=== PATIENT | male | born 1965 | race Two or more races ===

== ENCOUNTER → 2023-04-06 | Outpatient (CLI) | payer MEDICAID ==
[~2023-04-06] MED LIST: ASPI1TAB20 PO; ATOR40TA52 PO; BUME2TAB5 PO; CARV25TA55 PO; DULO20CA36 PO; EMPA1TAB PO; ISOS20TA5 PO; MEGE20TA3 PO; OXY5T GT; SACU1TAB PO
[2023-04-06 10:00] VITALS: BP 127/83; PULSE 87; RESP 16; O2SAT 92
[2023-04-06 10:28] VITALS: BP 131/83; PULSE 85; RESP 16; O2SAT 92
== END | disposition home or self-care (01) ==
LOC: CHF HDHVI 09:53
PROVIDERS: ATTEND Internal Medicine Cardiovascular Disease
DX: Z01.818 Encounter for other preprocedural examination (principal); I11.0 Hypertensive heart disease with heart failure; I50.43 Acute on chronic combined systolic (congestive) and diastolic (congestive) heart failure; I42.1 Obstructive hypertrophic cardiomyopathy; R94.31 Abnormal electrocardiogram [ECG] [EKG]
CPT/HCPCS: 93005; G0463

== ENCOUNTER 2023-04-07 11:25 | Day surgery (SDC) | payer MEDICAID ==
[2023-04-06 11:29] LABS: Basophils # (auto) 0.1 10 ^3/uL (0-0.2); Basophils % (auto) 1.4 % (0.0-2.0); Eosinophils # (auto) 0.4 10 ^3/uL (0-0.8); Eosinophils % (auto) 7.3 % (0.0-7.0); Hematocrit 27.2 % (41.0-53.0); Hemoglobin 8.7 g/dL (13.5-17.5); Lymphocytes # (auto) 0.7 10 ^3/uL (0.4-5.4); Lymphocytes % (auto) 12.4 % (10.0-50.0); Mean Corpuscular Hemoglobin 31.7 pg (28.0-32.0); Mean Corpuscular Hgb Conc. 31.9 g/dL (32.0-36.0); Mean Corpuscular Volume 99.4 fL (80.0-100.0); Monocytes # (auto) 0.5 10 ^3/uL (0-1.3); Monocytes % (auto) 9.3 % (0.0-12.0); Neutrophils # (auto) 3.8 10 ^3/uL (1.6-8.6); Neutrophils % (auto) 69.6 % (37.0-80.0); Red Blood Cells 2.73 10^6/uL (4.5-5.90); Red Cell Distribution Width 14.6 % (11.8-14.3); White Blood Cell 5.5 10^3/uL (4.4-10.8)
[2023-04-06 11:44] LABS: INR 1.09 (0.9-1.15); Partial Thromboplastin Time 32.1 SEC (24.5-34.5); Prothrombin Time 11.4 sec (9.3-11.8)
[2023-04-06 12:13] LABS: Chloride 103 mmol/L (98-107); Potassium 4.7 mmol/L (3.5-5.1); Sodium 134 mmol/L (136-145)
[2023-04-06 12:14] LABS: Anion Gap 6 (5-15); Calcium 8.5 mg/dL (8.7-10.4); Carbon Dioxide 25 mmol/L (20-30)
[2023-04-06 12:19] LABS: Glucose 203 mg/dL (74-106)
[2023-04-06 12:20] LABS: BUN/Creatinine Ratio 21.3 (10.0-20.0); Blood Urea Nitrogen 64 mg/dL (9-23)
[~2023-04-07] VITALS: Ht 188 cm; Wt 54.0 kg
[2023-04-07] VITALS (10 sets, daily range): BP systolic 141–187; BP diastolic 95–114; PULSE 82–85; RESP 10–14; TEMP 98.4; O2SAT 97–100
[~2023-04-07 11:25] MED LIST changes: -EMPA1TAB PO
[2023-04-07] MEDS ORDERED: fentaNYL CITRATE 100 MCG/2 ML VL ONE (12:23)
[2023-04-07] MEDS ORDERED: ANGIOMAX 250 MG VIAL IV ONE (12:23)
[2023-04-07] MEDS ORDERED: IOHEXOL 350 MG/ML 100ML IJ ONE ×2 (12:24→12:33)
[2023-04-07] MEDS ORDERED: SODIUM CHL 0.9% 0 ML ONE (12:24)
[2023-04-07] MEDS ORDERED: LIDOCAINE 2%HCL (LOCAL ANESTH.) INJ 20ML MDV ONE (12:24)
[2023-04-07] MEDS ORDERED: MIDAZOLAM HCL 2MG/2ML 2ml VIAL (1mg/ml) ONE (12:24)
[2023-04-07] MEDS ORDERED: ISOSORBIDE DINITRATE 10 MG TAB PO ONE (15:30)
[2023-04-07] MEDS ORDERED: ISOSORBIDE MONONITRATE ER 60 MG TAB PO ONE ×2 (15:30→15:33)
== END 2023-04-07 16:50 | disposition home or self-care (01) ==
LOC: CATH 11:25
PROVIDERS: ATTEND Internal Medicine Cardiovascular Disease
DX: I13.11 Hypertensive heart and chronic kidney disease without heart failure, with stage 5 chronic kidney disease, or end stage renal disease (principal); N18.6 End stage renal disease; E11.22 Type 2 diabetes mellitus with diabetic chronic kidney disease; I25.2 Old myocardial infarction; E78.5 Hyperlipidemia, unspecified; I42.9 Cardiomyopathy, unspecified; Z79.899 Other long term (current) drug therapy; Z79.82 Long term (current) use of aspirin; Z79.01 Long term (current) use of anticoagulants
CPT/HCPCS: 36415; 80048; 85025; 85610; 85730; 93458; C1757; C1894; J1644; J2250; J3010; Q9967; 99152

== ENCOUNTER 2023-05-04 10:43 | Inpatient (IN) | payer MEDICAID ==
[~2023-05-04] VITALS: Ht 188 cm; Wt 58.0 kg
[2023-05-04 11:40] LABS: Basophils # (auto) 0.1 10 ^3/uL (0-0.2); Eosinophils # (auto) 0.1 10 ^3/uL (0-0.8); Eosinophils % (auto) 1.1 % (0.0-7.0); Hematocrit 24.7 % (41.0-53.0); Lymphocytes # (auto) 0.8 10 ^3/uL (0.4-5.4); Mean Corpuscular Hemoglobin 31.9 pg (28.0-32.0); Mean Corpuscular Hgb Conc. 32.3 g/dL (32.0-36.0); Mean Corpuscular Volume 98.7 fL (80.0-100.0); Monocytes # (auto) 0.8 10 ^3/uL (0-1.3); Neutrophils # (auto) 4.8 10 ^3/uL (1.6-8.6); Neutrophils % (auto) 73.9 % (37.0-80.0); Red Cell Distribution Width 14.7 % (11.8-14.3); White Blood Cell 6.5 10^3/uL (4.4-10.8)
[2023-05-04 12:10] LABS: Albumin 3.3 g/dL (3.2-4.8); Alkaline Phosphatase 109 U/L (46-116); Anion Gap 5 (5-15); Aspartate Aminotransferase 18 U/L (13-40); BUN/Creatinine Ratio 15.2 (10.0-20.0); Bilirubin, Total 0.5 mg/dL (0.2-1.0); Blood Urea Nitrogen 39 mg/dL (9-23); Calcium 8.7 mg/dL (8.7-10.4); Carbon Dioxide 32 mmol/L (20-30); Chloride 96 mmol/L (98-107); Glucose 206 mg/dL (74-106); Potassium 3.9 mmol/L (3.5-5.1); Sodium 133 mmol/L (136-145); Total Protein 7.7 g/dL (5.7-8.2)
[2023-05-04 12:17] LABS: Alanine Aminotransferase < 9 U/L (7-40)
[2023-05-04] MEDS ORDERED: HEPARIN SODIUM (PORCINE) 5000 UNITS/ML 1ML VIAL IV ONE (13:15)
[2023-05-04] MEDS ORDERED: DOCUSATE SOD 100 MG CAP PO PRN (13:30)
[2023-05-04] MEDS ORDERED: ACETAMINOPHEN 325 MG TAB PO PRN (13:30)
[2023-05-04] MEDS ORDERED: ONDANSETRON HCL 4 MG/2 ML VIAL IV PRN (13:30)
[2023-05-04] MEDS ORDERED: HYDROcodone-ACET 5/325MG TAB PO PRN (13:30)
[2023-05-04] MEDS ORDERED: MORPHINE SULFATE INJ 2 MG/ml SYRG IV PRN ×2 (13:30→14:15)
[2023-05-04 14:09] LABS: INR 1.14 (0.9-1.15); Partial Thromboplastin Time 35.8 SEC (24.5-34.5); Prothrombin Time 11.9 sec (9.3-11.8)
[2023-05-04] MEDS ORDERED: NITROGLYCERIN 0.4 MG SL TAB SL PRN (14:15)
[2023-05-04] MEDS: SODIUM CHLOR 0.9% PF (SALINE LOCK) 10ML VIAL/SYR IV SCH ×2 (15:51→22:07)
[2023-05-04] MEDS: HEPARIN DRIP/D5W 100UNITS/ML 250 ML IV SCH (16:03)
[2023-05-04 16:24] VITALS: PULSE 88; RESP 16; O2SAT 98
[2023-05-04] MEDS: BUMETANIDE 2.5mg/10ml (0.25 mg/ml) INJ IV SCH (18:10)
[2023-05-04 19:34] VITALS: PULSE 93; RESP 19; O2SAT 99
[2023-05-04] MEDS: ATORVASTATIN 20 MG TAB PO SCH (22:00)
[2023-05-04 22:56] LABS: INR 1.12 (0.9-1.15); Partial Thromboplastin Time 57.4 SEC (24.5-34.5); Prothrombin Time 11.7 sec (9.3-11.8)
[2023-05-04 23:27] VITALS: BP 167/99; PULSE 96; RESP 20; TEMP 98; O2SAT 99
[2023-05-05] VITALS (7 sets, daily range): BP systolic 136–157; BP diastolic 74–99; PULSE 79–90; RESP 16–18; TEMP 98–98.6; O2SAT 97–99
[2023-05-05] MEDS ORDERED: [UNRECOGNIZED DRUG - CODE] XX (00:01)
[2023-05-05] MEDS ORDERED: ISOSORBIDE DINITRATE 10 MG TAB PO ONE (01:00)
[2023-05-05] MEDS ORDERED: CARVEDILOL 12.5 MG TAB PO ONE (01:00)
[2023-05-05] MEDS: SODIUM CHLOR 0.9% PF (SALINE LOCK) 10ML VIAL/SYR IV SCH ×3 (06:16→21:31)
[2023-05-05] MEDS: BUMETANIDE 2.5mg/10ml (0.25 mg/ml) INJ IV SCH ×2 (06:16→17:18)
[2023-05-05 07:26] LABS: Basophils # (auto) 0.1 10 ^3/uL (0-0.2); Eosinophils # (auto) 0.1 10 ^3/uL (0-0.8); Monocytes # (auto) 0.9 10 ^3/uL (0-1.3); White Blood Cell 6.2 10^3/uL (4.4-10.8)
[2023-05-05 07:29] LABS: Basophils % (auto) 0.9 % (0.0-2.0); Eosinophils % (auto) 2.1 % (0.0-7.0); Lymphocytes # (auto) 1.1 10 ^3/uL (0.4-5.4); Lymphocytes % (auto) 17.1 % (10.0-50.0); Mean Corpuscular Hemoglobin 33.1 pg (28.0-32.0); Mean Corpuscular Hgb Conc. 33.2 g/dL (32.0-36.0); Mean Corpuscular Volume 99.7 fL (80.0-100.0); Monocytes % (auto) 15.1 % (0.0-12.0); Neutrophils % (auto) 64.8 % (37.0-80.0); Nucleated Red Blood Cells % 0.1 %; Red Blood Cells 2.11 10^6/uL (4.5-5.90); Red Cell Distribution Width 14.5 % (11.8-14.3)
[2023-05-05 07:55] LABS: Alkaline Phosphatase 95 U/L (46-116); Anion Gap 6 (5-15); BUN/Creatinine Ratio 14.7 (10.0-20.0); Blood Urea Nitrogen 43 mg/dL (9-23); Calcium 8.4 mg/dL (8.5-10.1); Carbon Dioxide 29 mmol/L (20-30); Chloride 99 mmol/L (98-107); Glucose 106 mg/dL (74-106); Potassium 3.7 mmol/L (3.5-5.1); Sodium 134 mmol/L (136-145)
[2023-05-05 07:56] LABS: Albumin 2.9 g/dL (3.2-4.8); Aspartate Aminotransferase 13 U/L (13-40)
[2023-05-05 07:57] LABS: Bilirubin, Total 0.4 mg/dL (0.2-1.0); Total Protein 6.7 g/dL (5.7-8.2)
[2023-05-05 08:02] LABS: Alanine Aminotransferase < 9 U/L (7-40)
[2023-05-05 08:08] LABS: INR 1.14 (0.9-1.15); Partial Thromboplastin Time 50.3 SEC (24.5-34.5); Prothrombin Time 11.9 sec (9.3-11.8)
[2023-05-05] MEDS: ASPirin 81 mg TAB PO SCH (09:37)
[2023-05-05 12:55] LABS: INR 1.14 (0.9-1.15); Partial Thromboplastin Time 69.1 SEC (24.5-34.5); Prothrombin Time 11.9 sec (9.3-11.8)
[2023-05-05] MEDS: HEPARIN DRIP/D5W 100UNITS/ML 250 ML IV SCH (14:09)
[2023-05-05 14:36] LABS: Urine Bacteria NONE SEEN /hpf (None Seen); Urine Blood Negative /uL (Negative); Urine Clarity Clear (Clear); Urine Color Colorless (Yellow); Urine Protein, UAD 1+ (Negative); Urine Specific Gravity 1.008 (1.001-1.035); Urine Urobilinogen Normal (Negative); Urine WBC <1 /hpf (0 - 3)
[2023-05-05] MEDS ORDERED: DULO1CAP6 PO (14:37)
[2023-05-05 14:40] LABS: Protein, Urine 65.8 mg/dL (0.0-11.9)
[2023-05-05 14:43] LABS: Creatinine, Urine 29.27 mg/dL (30.0-125.0)
[2023-05-05 18:11] LABS: Eosinophils # (auto) 0.1 10 ^3/uL (0-0.8); Monocytes # (auto) 0.6 10 ^3/uL (0-1.3); Neutrophils # (auto) 2.8 10 ^3/uL (1.6-8.6); Red Cell Distribution Width 14.6 % (11.8-14.3); White Blood Cell 4.6 10^3/uL (4.4-10.8)
[2023-05-05 18:12] LABS: Basophils # (auto) 0 10 ^3/uL (0-0.2); Eosinophils % (auto) 2.3 % (0.0-7.0); Hematocrit 25.5 % (41.0-53.0); Hemoglobin 8.1 g/dL (13.5-17.5); Lymphocytes % (auto) 22.1 % (10.0-50.0); Mean Corpuscular Hemoglobin 31.6 pg (28.0-32.0); Mean Corpuscular Hgb Conc. 31.7 g/dL (32.0-36.0); Mean Corpuscular Volume 99.6 fL (80.0-100.0); Monocytes % (auto) 13.7 % (0.0-12.0); Neutrophils % (auto) 60.9 % (37.0-80.0); Nucleated Red Blood Cells % 0.1 %; Red Blood Cells 2.56 10^6/uL (4.5-5.90)
[2023-05-05] MEDS: MEGESTROL ACETATE 20 MG TAB PO SCH (21:29)
[2023-05-05] MEDS: DULoxetine HCL 30 MG CAP PO SCH (21:29)
[2023-05-05] MEDS: ATORVASTATIN 20 MG TAB PO SCH (21:29)
[2023-05-05] MEDS: ISOSORBIDE DINITRATE 10 MG TAB PO SCH (21:30)
[2023-05-05] MEDS: CARVEDILOL 12.5 MG TAB PO SCH (21:31)
[2023-05-05] MEDS ORDERED: SACUBITRIL-VALSARTAN 24mg/26mg TAB PO SCH (22:00)
[2023-05-06] VITALS (7 sets, daily range): BP systolic 120–162; BP diastolic 63–93; PULSE 55–86; RESP 16–18; TEMP 97.9–98.5; O2SAT 95–99
[2023-05-06] MEDS: SODIUM CHLOR 0.9% PF (SALINE LOCK) 10ML VIAL/SYR IV SCH ×3 (05:28→22:03)
[2023-05-06] MEDS: BUMETANIDE 2.5mg/10ml (0.25 mg/ml) INJ IV SCH ×2 (05:28→19:07)
[2023-05-06 06:43] LABS: Albumin 3.2 g/dL (3.2-4.8); Alkaline Phosphatase 103 U/L (46-116); Anion Gap 6 (5-15); Aspartate Aminotransferase 16 U/L (13-40); BUN/Creatinine Ratio 14.9 (10.0-20.0); Calcium 8.4 mg/dL (8.7-10.4); Carbon Dioxide 29 mmol/L (20-30); Chloride 100 mmol/L (98-107); Glucose 177 mg/dL (74-106); Potassium 4.7 mmol/L (3.5-5.1); Sodium 135 mmol/L (136-145); Uric Acid 6.6 mg/dL (3.7-9.2)
[2023-05-06 06:44] LABS: Bilirubin, Total 0.3 mg/dL (0.2-1.0); Phosphorus 3.9 mg/dL (2.4-5.1); Total Protein 7.6 g/dL (5.7-8.2)
[2023-05-06 06:46] LABS: INR 1.13 (0.9-1.15); Partial Thromboplastin Time 49.6 SEC (24.5-34.5); Prothrombin Time 11.8 sec (9.3-11.8)
[2023-05-06 06:52] LABS: Alanine Aminotransferase < 9 U/L (7-40); Blood Urea Nitrogen 54 mg/dL (9-23)
[2023-05-06 07:27] LABS: Basophils # (auto) 0.1 10 ^3/uL (0-0.2); Basophils % (auto) 0.8 % (0.0-2.0); Eosinophils # (auto) 0.1 10 ^3/uL (0-0.8); Neutrophils # (auto) 5.5 10 ^3/uL (1.6-8.6); White Blood Cell 7.8 10^3/uL (4.4-10.8)
[2023-05-06 07:28] LABS: Eosinophils % (auto) 1.4 % (0.0-7.0); Hematocrit 22.9 % (41.0-53.0); Hemoglobin 7.5 g/dL (13.5-17.5); Lymphocytes # (auto) 1.2 10 ^3/uL (0.4-5.4); Lymphocytes % (auto) 14.8 % (10.0-50.0); Mean Corpuscular Hemoglobin 32.5 pg (28.0-32.0); Mean Corpuscular Hgb Conc. 32.6 g/dL (32.0-36.0); Mean Corpuscular Volume 99.8 fL (80.0-100.0); Monocytes % (auto) 13.2 % (0.0-12.0); Neutrophils % (auto) 69.8 % (37.0-80.0); Red Blood Cells 2.29 10^6/uL (4.5-5.90); Red Cell Distribution Width 14.6 % (11.8-14.3)
[2023-05-06] MEDS: DULoxetine HCL 30 MG CAP PO SCH ×2 (09:50→21:56)
[2023-05-06] MEDS: ASPirin 81 mg TAB PO SCH (09:50)
[2023-05-06] MEDS: CARVEDILOL 12.5 MG TAB PO SCH ×2 (09:52→21:55)
[2023-05-06] MEDS: ISOSORBIDE DINITRATE 10 MG TAB PO SCH ×2 (09:52→21:55)
[2023-05-06] MEDS: MEGESTROL ACETATE 20 MG TAB PO SCH ×2 (10:00→21:56)
[2023-05-06] MEDS: HEPARIN DRIP/D5W 100UNITS/ML 250 ML IV SCH ×2 (11:35→17:43)
[2023-05-06 12:41] LABS: INR 1.14 (0.9-1.15); Prothrombin Time 11.9 sec (9.3-11.8)
[2023-05-06 12:48] LABS: Partial Thromboplastin Time 79.6 SEC (24.5-34.5)
[2023-05-06 19:51] LABS: INR 1.14 (0.9-1.15); Partial Thromboplastin Time 49.9 SEC (24.5-34.5); Prothrombin Time 11.9 sec (9.3-11.8)
[2023-05-06] MEDS: ATORVASTATIN 20 MG TAB PO SCH (21:56)
[2023-05-07] VITALS (8 sets, daily range): BP systolic 142–171; BP diastolic 80–98; PULSE 74–84; RESP 14–20; TEMP 36.8; O2SAT 96–99
[2023-05-07 02:09] LABS: Basophils # (auto) 0.1 10 ^3/uL (0-0.2); Eosinophils # (auto) 0.1 10 ^3/uL (0-0.8); Eosinophils % (auto) 2.6 % (0.0-7.0); Hemoglobin 7.2 g/dL (13.5-17.5); Lymphocytes # (auto) 0.8 10 ^3/uL (0.4-5.4); Monocytes # (auto) 0.6 10 ^3/uL (0-1.3); Neutrophils # (auto) 2.9 10 ^3/uL (1.6-8.6); Nucleated Red Blood Cells % 0.1 %; White Blood Cell 4.5 10^3/uL (4.4-10.8)
[2023-05-07 02:11] LABS: Basophils % (auto) 1.2 % (0.0-2.0); Hematocrit 22.3 % (41.0-53.0); Lymphocytes % (auto) 18.8 % (10.0-50.0); Mean Corpuscular Hemoglobin 32.6 pg (28.0-32.0); Mean Corpuscular Hgb Conc. 32.3 g/dL (32.0-36.0); Mean Corpuscular Volume 100.9 fL (80.0-100.0); Monocytes % (auto) 13.4 % (0.0-12.0); Red Blood Cells 2.21 10^6/uL (4.5-5.90); Red Cell Distribution Width 14.3 % (11.8-14.3)
[2023-05-07 02:20] LABS: Alkaline Phosphatase 96 U/L (46-116); Anion Gap 7 (5-15); Aspartate Aminotransferase 13 U/L (13-40); BUN/Creatinine Ratio 13.6 (10.0-20.0); Bilirubin, Total 0.3 mg/dL (0.2-1.0); Blood Urea Nitrogen 53 mg/dL (9-23); Calcium 8.2 mg/dL (8.7-10.4); Carbon Dioxide 27 mmol/L (20-30); Chloride 100 mmol/L (98-107); Glucose 210 mg/dL (74-106); Potassium 4.4 mmol/L (3.5-5.1); Sodium 134 mmol/L (136-145); Total Protein 7.1 g/dL (5.7-8.2)
[2023-05-07 02:26] LABS: INR 1.14 (0.9-1.15); Partial Thromboplastin Time 58.7 SEC (24.5-34.5); Prothrombin Time 11.9 sec (9.3-11.8)
[2023-05-07 02:29] LABS: Alanine Aminotransferase < 9 U/L (7-40)
[2023-05-07] MEDS: BUMETANIDE 2.5mg/10ml (0.25 mg/ml) INJ IV SCH ×2 (05:52→17:50)
[2023-05-07] MEDS: SODIUM CHLOR 0.9% PF (SALINE LOCK) 10ML VIAL/SYR IV SCH ×3 (05:56→22:33)
[2023-05-07] MEDS: ASPirin 81 mg TAB PO SCH (09:32)
[2023-05-07] MEDS: ISOSORBIDE DINITRATE 10 MG TAB PO SCH ×2 (09:32→22:26)
[2023-05-07] MEDS: DULoxetine HCL 30 MG CAP PO SCH ×2 (09:32→22:27)
[2023-05-07] MEDS: CARVEDILOL 12.5 MG TAB PO SCH ×2 (09:33→22:28)
[2023-05-07] MEDS: MEGESTROL ACETATE 20 MG TAB PO SCH ×2 (09:33→22:30)
[2023-05-07 10:06] LABS: INR 1.12 (0.9-1.15); Prothrombin Time 11.7 sec (9.3-11.8)
[2023-05-07 10:08] LABS: Partial Thromboplastin Time 71.7 SEC (24.5-34.5)
[2023-05-07] MEDS: HEPARIN DRIP/D5W 100UNITS/ML 250 ML IV SCH (14:01)
[2023-05-07 16:13] LABS: INR 1.14 (0.9-1.15); Partial Thromboplastin Time 69.6 SEC (24.5-34.5); Prothrombin Time 11.9 sec (9.3-11.8)
[2023-05-07] MEDS: ATORVASTATIN 20 MG TAB PO SCH (22:29)
[2023-05-08] VITALS (7 sets, daily range): BP systolic 119–170; BP diastolic 0–96; PULSE 70–79; RESP 16–20; TEMP 36.8; O2SAT 94–98
[2023-05-08 05:37] LABS: Eosinophils # (auto) 0.1 10 ^3/uL (0-0.8); Hemoglobin 7.7 g/dL (13.5-17.5); Monocytes # (auto) 0.7 10 ^3/uL (0-1.3); Neutrophils # (auto) 3.3 10 ^3/uL (1.6-8.6); White Blood Cell 5.2 10^3/uL (4.4-10.8)
[2023-05-08 05:40] LABS: Basophils # (auto) 0.1 10 ^3/uL (0-0.2); Basophils % (auto) 1.1 % (0.0-2.0); Eosinophils % (auto) 2.7 % (0.0-7.0); Hematocrit 23.1 % (41.0-53.0); Lymphocytes % (auto) 19.9 % (10.0-50.0); Mean Corpuscular Hemoglobin 33.3 pg (28.0-32.0); Mean Corpuscular Hgb Conc. 33.5 g/dL (32.0-36.0); Mean Corpuscular Volume 99.4 fL (80.0-100.0); Monocytes % (auto) 12.7 % (0.0-12.0); Neutrophils % (auto) 63.6 % (37.0-80.0); Red Blood Cells 2.32 10^6/uL (4.5-5.90); Red Cell Distribution Width 13.9 % (11.8-14.3)
[2023-05-08 05:51] LABS: INR 1.16 (0.9-1.15); Partial Thromboplastin Time 64.6 SEC (24.5-34.5); Prothrombin Time 12.1 sec (9.3-11.8)
[2023-05-08 06:11] LABS: Alkaline Phosphatase 96 U/L (46-116); Anion Gap 8 (5-15); BUN/Creatinine Ratio 14.4 (10.0-20.0); Blood Urea Nitrogen 55 mg/dL (9-23); Calcium 8.6 mg/dL (8.7-10.4); Carbon Dioxide 26 mmol/L (20-30); Chloride 100 mmol/L (98-107); Glucose 105 mg/dL (74-106); Potassium 4.5 mmol/L (3.5-5.1); Sodium 134 mmol/L (136-145)
[2023-05-08 06:12] LABS: Albumin 3.2 g/dL (3.2-4.8); Aspartate Aminotransferase 14 U/L (13-40); Total Protein 7.7 g/dL (5.7-8.2)
[2023-05-08] MEDS: SODIUM CHLOR 0.9% PF (SALINE LOCK) 10ML VIAL/SYR IV SCH ×3 (06:18→21:03)
[2023-05-08 06:22] LABS: Alanine Aminotransferase < 9 U/L (7-40)
[2023-05-08 07:09] LABS: Bilirubin, Total 0.4 mg/dL (0.2-1.0)
[2023-05-08] MEDS: ASPirin 81 mg TAB PO SCH (09:28)
[2023-05-08] MEDS: DULoxetine HCL 30 MG CAP PO SCH ×2 (09:28→21:04)
[2023-05-08] MEDS: ISOSORBIDE DINITRATE 10 MG TAB PO SCH ×2 (09:29→21:04)
[2023-05-08] MEDS: APIXABAN 5 MG TAB PO SCH ×2 (09:30→21:04)
[2023-05-08] MEDS: CARVEDILOL 12.5 MG TAB PO SCH ×2 (09:31→21:05)
[2023-05-08] MEDS: MEGESTROL ACETATE 20 MG TAB PO SCH ×2 (10:00→21:05)
[2023-05-08] MEDS: ATORVASTATIN 20 MG TAB PO SCH (21:04)
[2023-05-09 05:00] VITALS: BP 169/95; PULSE 79; RESP 17; TEMP 98.8; O2SAT 98
[2023-05-09 06:20] LABS: Calcium 8.8 mg/dL (8.5-10.1); Chloride 102 mmol/L (98-107); Potassium 4.7 mmol/L (3.5-5.1); Sodium 136 mmol/L (136-145)
[2023-05-09 06:21] LABS: Anion Gap 9 (5-15); Carbon Dioxide 25 mmol/L (20-30)
[2023-05-09 06:26] LABS: BUN/Creatinine Ratio 13.5 (10.0-20.0); Blood Urea Nitrogen 54 mg/dL (9-23); Glucose 131 mg/dL (74-106)
[2023-05-09 06:30] LABS: Basophils # (auto) 0.1 10 ^3/uL (0-0.2); Eosinophils # (auto) 0.1 10 ^3/uL (0-0.8); Hemoglobin 7.6 g/dL (13.5-17.5); Monocytes # (auto) 0.9 10 ^3/uL (0-1.3); Neutrophils # (auto) 4.3 10 ^3/uL (1.6-8.6); White Blood Cell 6.3 10^3/uL (4.4-10.8)
[2023-05-09 06:33] LABS: Basophils % (auto) 0.8 % (0.0-2.0); Eosinophils % (auto) 1.7 % (0.0-7.0); Hematocrit 23.1 % (41.0-53.0); Lymphocytes # (auto) 0.9 10 ^3/uL (0.4-5.4); Mean Corpuscular Hemoglobin 32.8 pg (28.0-32.0); Mean Corpuscular Hgb Conc. 33.1 g/dL (32.0-36.0); Monocytes % (auto) 14.1 % (0.0-12.0); Neutrophils % (auto) 68.4 % (37.0-80.0); Red Blood Cells 2.33 10^6/uL (4.5-5.90); Red Cell Distribution Width 14.2 % (11.8-14.3)
[2023-05-09 08:00] VITALS: PULSE 78
[2023-05-09] MEDS: ASPirin 81 mg TAB PO SCH (08:58)
[2023-05-09] MEDS: APIXABAN 5 MG TAB PO SCH (08:58)
[2023-05-09] MEDS: DULoxetine HCL 30 MG CAP PO SCH (08:58)
[2023-05-09] MEDS: CARVEDILOL 12.5 MG TAB PO SCH (08:59)
[2023-05-09] MEDS: ISOSORBIDE DINITRATE 10 MG TAB PO SCH (08:59)
[2023-05-09 09:00] VITALS: BP 163/82; PULSE 78; RESP 17; TEMP 98.5; O2SAT 97
[2023-05-09] MEDS: MEGESTROL ACETATE 20 MG TAB PO SCH (10:00)
[2023-05-09] MEDS ORDERED: APIX5TAB PO (11:48)
[2023-05-09 12:18] VITALS: BP 163/82; PULSE 72; TEMP 36.9
== END 2023-05-09 13:01 | disposition home or self-care (01) | DRG 197 ==
LOC: ER 10:43 → TELE 14:03 → TELE-WESTW 22:31
PROVIDERS: ADMIT Nurse Practitioner Family; ATTEND Internal Medicine Geriatric Medicine
DX: I82.C11 Acute embolism and thrombosis of right internal jugular vein (principal); I13.2 Hypertensive heart and chronic kidney disease with heart failure and with stage 5 chronic kidney disease, or end stage renal disease; D63.1 Anemia in chronic kidney disease; N18.6 End stage renal disease; D75.838 Other thrombocytosis; E78.5 Hyperlipidemia, unspecified; I50.22 Chronic systolic (congestive) heart failure; Z79.82 Long term (current) use of aspirin; Z88.8 Allergy status to other drugs, medicaments and biological substances; I25.2 Old myocardial infarction; Z99.2 Dependence on renal dialysis
CPT/HCPCS: 36415; 76775; 80048; 80053; 81001; 82306; 82570; 83036; 84100; 84156; 84300; 84443; 84550; 85025; 85610; 85730; 86850; 86900; 86901; 93971; 96365; 96375; 96376; G0378; J2405

== ENCOUNTER 2023-07-07 09:12 | Inpatient (IN) | payer MEDICARE, MEDICAID ==
[2023-07-05 16:23] LABS: Basophils # (auto) 0.1 10 ^3/uL (0-0.2); Basophils % (auto) 3.8 % (0.0-2.0); Eosinophils # (auto) 0.1 10 ^3/uL (0-0.8); Hematocrit 33.2 % (41.0-53.0); Hemoglobin 10.8 g/dL (13.5-17.5); Lymphocytes # (auto) 0.9 10 ^3/uL (0.4-5.4); Lymphocytes % (auto) 25.7 % (10.0-50.0); Mean Corpuscular Hemoglobin 31.8 pg (28.0-32.0); Mean Corpuscular Hgb Conc. 32.5 g/dL (32.0-36.0); Mean Corpuscular Volume 97.9 fL (80.0-100.0); Monocytes # (auto) 0.4 10 ^3/uL (0-1.3); Monocytes % (auto) 11.1 % (0.0-12.0); Neutrophils % (auto) 57.4 % (37.0-80.0); Nucleated Red Blood Cells % 0.1 %; Red Blood Cells 3.39 10^6/uL (4.5-5.90); Red Cell Distribution Width 13.5 % (11.8-14.3); White Blood Cell 3.5 10^3/uL (4.4-10.8)
[2023-07-05 16:38] LABS: INR 1.16 (0.9-1.15); Partial Thromboplastin Time 37.9 SEC (24.5-34.5); Prothrombin Time 12.1 sec (9.3-11.8)
[2023-07-05 17:29] LABS: Chloride 98 mmol/L (98-107); Sodium 136 mmol/L (136-145)
[2023-07-05 17:30] LABS: Anion Gap 5 (5-15); Carbon Dioxide 33 mmol/L (20-30)
[2023-07-05 17:31] LABS: Calcium 8.7 mg/dL (8.7-10.4)
[2023-07-05 17:35] LABS: Glucose 99 mg/dL (74-106)
[2023-07-05 17:36] LABS: BUN/Creatinine Ratio 4.2 (10.0-20.0); Blood Urea Nitrogen 7 mg/dL (9-23)
[2023-07-07] VITALS (8 sets, daily range): BP systolic 117–127; BP diastolic 77–83; PULSE 60–62; RESP 12–18; TEMP 97.5–97.8; O2SAT 90–96
[~2023-07-07] VITALS: Ht 188 cm; Wt 56.6 kg
[~2023-07-07 09:12] MED LIST changes: +APIX5TAB PO; -ASPI1TAB20 PO; +DULO1CAP6 PO; -DULO20CA36 PO; +EMPA1TAB PO; +IVAB1.7T PO; -OXY5T GT; -SACU1TAB PO
[2023-07-07] MEDS ORDERED: MEGE40TA4 PO (13:07)
[2023-07-07] MEDS ORDERED: APIX5TAB PO (13:07)
[2023-07-07] MEDS ORDERED: VANCOMYCIN 1GM/200ML 200 ML IV ONE (13:15)
[2023-07-07] MEDS ORDERED: fentaNYL CITRATE 100 MCG/2 ML VL ONE (15:43)
[2023-07-07] MEDS ORDERED: LIDOCAINE 2%HCL (LOCAL ANESTH.) INJ 20ML MDV ONE ×2 (15:43→15:44)
[2023-07-07] MEDS ORDERED: IOHEXOL 350 MG/ML 100ML IJ ONE (15:43)
[2023-07-07] MEDS ORDERED: MIDAZOLAM HCL 2MG/2ML 2ml VIAL (1mg/ml) ONE (15:43)
[2023-07-07] MEDS ORDERED: VANCOMYCIN HCL 1000 MG VL ONE (16:06)
[2023-07-07] MEDS ORDERED: ATROPINE SULF 1 MG/10ml SYR ONE (16:39)
[2023-07-07] MEDS ORDERED: BUMETANIDE 2.5mg/10ml (0.25 mg/ml) INJ IV ONE (17:00)
[2023-07-07] MEDS ORDERED: NITROGLYCERIN 0.4 MG SL TAB SL PRN (17:45)
[2023-07-07] MEDS ORDERED: MORPHINE SULFATE INJ 2 MG/ml SYRG IV PRN (17:45)
[2023-07-07] MEDS ORDERED: HYDROcodone-ACET 5/325MG TAB PO PRN (17:45)
[2023-07-07] MEDS ORDERED: ACETAMINOPHEN 325 MG TAB PO PRN (17:45)
[2023-07-07] MEDS ORDERED: ONDANSETRON HCL 4 MG/2 ML VIAL ONE (18:15)
[2023-07-07] MEDS ORDERED: ONDANSETRON HCL 4 MG/2 ML VIAL IV PRN (18:15)
[2023-07-07] MEDS: ISOSORBIDE DINITRATE 10 MG TAB PO SCH (21:42)
[2023-07-07] MEDS: DULoxetine HCL 30 MG CAP PO SCH (21:43)
[2023-07-07] MEDS: CARVEDILOL 12.5 MG TAB PO SCH (21:44)
[2023-07-07] MEDS: ceFAZolin 1GM/50ML 50 ML IV SCH (21:45)
[2023-07-07] MEDS: IVABRADINE 5 MG TAB PO SCH (22:00)
[2023-07-08 05:00] VITALS: BP 118/75; PULSE 60; RESP 18; TEMP 97.8; O2SAT 96
[2023-07-08] MEDS: ceFAZolin 1GM/50ML 50 ML IV SCH (05:33)
[2023-07-08] MEDS ORDERED: VANCOMYCIN 1GM/200ML 200 ML IV SCH (06:00)
[2023-07-08 08:00] VITALS: PULSE 61
[2023-07-08 08:15] VITALS: RESP 16; O2SAT 96
[2023-07-08 09:00] VITALS: BP 142/76; PULSE 62; RESP 19; TEMP 97.9; O2SAT 92
[2023-07-08] MEDS: DULoxetine HCL 30 MG CAP PO SCH (09:55)
[2023-07-08] MEDS: CARVEDILOL 12.5 MG TAB PO SCH (09:56)
[2023-07-08] MEDS: ISOSORBIDE DINITRATE 10 MG TAB PO SCH (09:57)
[2023-07-08] MEDS ORDERED: ATORVASTATIN 20 MG TAB PO SCH (10:00)
[2023-07-08] MEDS ORDERED: EMPAGLIFLOZIN 10 MG TAB PO SCH (10:00)
[2023-07-08] MEDS ORDERED: BUMETANIDE 1 MG TAB PO SCH (10:00)
[2023-07-08] MEDS ORDERED: POTASSIUM EFFERVESENT TAB 25 MEQ PO ONE (10:30)
[2023-07-08] MEDS: IVABRADINE 5 MG TAB PO SCH (10:44)
[2023-07-08 13:00] VITALS: BP 119/77; PULSE 63; RESP 18; TEMP 98; O2SAT 93
[2023-07-08 17:22] VITALS: BP 129/87; PULSE 65; RESP 21; TEMP 98.1; O2SAT 95
== END 2023-07-08 17:15 | disposition home or self-care (01) | DRG 276 ==
LOC: CATH 09:12 → TELE 17:39 → TELE-WESTW 19:26
PROVIDERS: ADMIT Internal Medicine Cardiovascular Disease; ATTEND Internal Medicine Cardiovascular Disease
PROC: 02H63KZ Insertion of Defibrillator Lead into Right Atrium, Percutaneous Approach (ICD-10-PCS; principal; 2023-07-07)
PROC: 0JH609Z Insertion of Cardiac Resynchronization Defibrillator Pulse Generator into Chest Subcutaneous Tissue and Fascia, Open Approach (ICD-10-PCS; 2023-07-07)
PROC: 02HK3KZ Insertion of Defibrillator Lead into Right Ventricle, Percutaneous Approach (ICD-10-PCS; 2023-07-07)
DX: I13.2 Hypertensive heart and chronic kidney disease with heart failure and with stage 5 chronic kidney disease, or end stage renal disease (principal); N18.6 End stage renal disease; Z99.2 Dependence on renal dialysis; D69.1 Qualitative platelet defects; E78.5 Hyperlipidemia, unspecified; E87.6 Hypokalemia; I50.22 Chronic systolic (congestive) heart failure; I42.0 Dilated cardiomyopathy; I50.84 End stage heart failure
CPT/HCPCS: 33225; 33249; 36415; 71045; 80048; 85025; 85610; 85730; 93005; 99152; G0378; G0463; J2250; J2405

== ENCOUNTER 2024-04-16 15:05 | Inpatient (IN) | payer OTHER, MEDICAID ==
[~2024-04-16] VITALS: Ht 180.3 cm; Wt 15.5 kg
[~2024-04-16 15:05] MED LIST changes: +CHOL20003 PO; +EMPA1TAB3 PO; -MEGE20TA3 PO; +MEGE40TA4 PO
--- NOTE | 2024-04-16 15:24 | ED.PDOC ---
Altered Mental Status HPI Comments A 58 year old female brought in by EMS presents to the ED with a chief complaint of ALOC. Per EMS, family member stated the patient was ALOC for the past 4 days. Patient has dialysis every Tuesday, Tuesday and Tuesday, and missed today. Family also noticed jaundice on the patient's abdomen and eyes. EMS states the patient O2 sat was 79 % on 2L was placed on 6L and O2 sat was 100%, blood sugar was 70 and Dextrose 10% was given in route. Patient is ANO x1 and GCS 14. He has a past medical history of CHF, COPD, HTN. No other symptoms or modifying factors present at this time. Chief Complaint: ALOC Time Seen by MD: 14:58 Primary Care Provider: TRUDY Mooney Notes: Nurses Notes, Medications, Allergies Allergies: Coded Allergies: Furosemide (Verified Allergy, Unknown, 02/28/23) Home Meds Reported Medications Apixaban Base (ELIQUIS) 5 Mg Tab, 1 TAB PO BID for ARRYTHMIA 07/07/23 Megestrol Acetate (Megestrol Acetate) 40 Mg Tab, 1 TAB PO BID for LOSS OF APPETITE 07/07/23 Empagliflozin (Jardiance) 10 Mg Tab, 1 TAB PO DAILY for DIABETES 07/05/23 Ivabradine Hydrochloride (Corlanor) 5 Mg Tab, 1 TAB PO BID for HEART FAILURE 07/05/23 Duloxetine HCl (Duloxetine HCl) 60 Mg Cap, 1 CAP PO BID for DEPRESSION 05/05/23 Carvedilol (Carvedilol) 25 Mg Tab, 1 TAB PO BID for HYPERTENSION 04/06/23 Bumetanide (Bumetanide) 2 Mg Tab, 1 TAB PO DAILY for EDEMA 04/06/23 Atorvastatin Calcium (ATORVASTATIN CALCIUM) 40 Mg Tab, 1 TAB PO DAILY for HIGH CHOLESTEROL 04/06/23 Isosorbide Dinitrate (Isosorbide Dinitrate) 20 Mg Tab, 1 TAB PO BID for ANGINA 04/06/23 Information Source: Patient, Emergency Med Personnel Mode of Arrival: EMS Severity: Moderate Timing: Days Duration: Since onset Prehospital treatment: None Quality: Confusion Recent: Nausea, None Past Medical History PAST MEDICAL HISTORY: CHF, COPD, HTN Surgical History: Unknown Family History Family History: Unknown Social History Smoker: Non-Smoker Alcohol: Denies ETOH Use Drugs: Denies Drug Use Lives In: Home Constitutional: denies: chills, diaphoresis, fatigue, fever, malaise, sweats, weakness, others EENTM: denies: blurred vision, double vision, ear bleeding, ear discharge, ear drainage, ear pain, ear ringing, eye pain, eye redness, hearing loss, mouth pain, mouth swelling, nasal discharge, nose bleeding, nose congestion, nose pain, photophobia, tearing, throat pain, throat swelling, voice changes, others Respiratory: denies: cough, hemoptysis, orthopnea, SOB at rest, shortness of breath, SOB with excertion, stridor, wheezing, others Cardiovascular: denies: chest pain, dizzy spells, diaphoresis, Dyspnea on exertion, edema, irregular heart beat, left arm pain, lightheadedness, palpitations, PND, syncope, others Gastrointestinal: denies: abdomen distended, abdominal pain, blood streaked bowels, constipated, diarrhea, dysphagia, difficulty swallowing, hematemesis, melena, nausea, poor appetite, poor fluid intake, rectal bleeding, rectal pain, vomiting, others Genitourinary: denies: burning, dysuria, flank pain, frequency, hematuria, incontinence, penile discharge, penile sore, pain, testicle pain, testicle swelling, urgency, others Neurological: denies: dizziness, fainting, headache, left sided numbness, left sided weakness, numbness, paresthesia, pre-existing deficit, right sided numbness, right sided weakness, seizure, speech problems, tingling, tremors, weakness, others (ALOC) Musculoskeletal: denies: back pain, gout, joint pain, joint swelling, muscle pain, muscle stiffness, neck pain, others Integumetry: reports: change in color (jaundice ); denies: bruises, change in hair/nails, dryness, laceration, lesions, lumps, rash, wounds, others Allergic/Immunocompromised: denies: Difficulty Healing, Frequent Infections, Hives, Itching, others Hematologic/Lymphatic: denies: anemia, blood clots, easy bleeding, easy bruising, swollen glands, others Endocrine: denies: excessive hunger, excessive sweating, excessive thirst, excessive urination, flushing, intolerance to cold, intolerance to heat, unexplained weight gain, unexplained weight loss, others Psychiatric: denies: anxiety, bipolar disorder, depression, hopeless, panic disorder, schizophrenia, sleepless, suicidal, others All Other Systems: Reviewed and Negative Physical Exam General Appearance: Moderate Distress HEENT: Normal ENT Inspection, Pharynx Normal, TMs Normal Neck: Full Range of Motion, Non-Tender, Normal, Normal Inspection Respiratory: Chest Non-Tender, Lungs Clear, No Accessory Muscle Use, No Respiratory Distress, Normal Breath Sounds Cardiovascular: No Edema, No JVD, No Murmur, No Gallop, Normal Peripheral Pulses, Regular Rate/Rhythm Breast Exam: Deferred Gastrointestinal: No Organomegaly, Non Tender, No Pulsatile Mass, Normal Bowel Sounds, Soft Genitalia: Deferred Pelvic: Deferred Rectal: Deferred Extremities: No calf tenderness, Normal capillary refill, No pedal edema, Other (There is a Altaf catheter to the right femoral area) Musculoskeletal : Apperance: Normal Neurologic: Alert, manager scientific II-XII nml as Tested, Motor Weakness, Normal Affect, Normal Mood, No Sensory Deficits Cerebellar Function: Normal Reflexes: Normal Skin: Dry, Normal Color, Warm Lymphatic: No Adenopathy Was a procedure done? Was a procedure done?: No Differential Diagnosis (ALOC) Differential Diagnosis: Dehydration, Hypoglycemia, Encephalopathy, Drug Overdose X-Ray, Labs, Meds, VS Vital Signs Date Time Temp Pulse Resp B/P (MAP) Pulse Ox O2 Delivery O2 Flow Rate FiO2 04/16/24 19:30 97.7 65 12 103/75 (84) 98 97.7 04/16/24 19:25 Nasal Cannula* 3 32 04/16/24 18:37 98 Nasal Cannula* 2 28 04/16/24 18:37 98 Nasal Cannula 2.0 04/16/24 18:27 98.4 70 12 107/75 98 2.0 28 98.4 04/16/24 16:00 74 04/16/24 16:00 70 12 107/75 (86) 98 04/16/24 16:00 70 12 98 Nasal Cannula* 2 28 04/16/24 15:08 98.4 77 16 122/86 (98) 99 04/16/24 15:05 77 Lab Test 04/16/24 18:13 04/16/24 14:14 Range/Units White Blood Count 4.2 L 4.4-10.8 10^3/uL Red Blood Count 2.65 L 4.5-5.90 10^6/uL Hemoglobin 9.9 L 13.5-17.5 g/dL Hematocrit 28.2 L 41.0-53.0 % Mean Corpuscular Volume 106.3 H 80.0-100.0 fL Mean Corpuscular Hemoglobin 37.5 H 28.0-32.0 pg Mean Corpuscular Hemoglobin Concent 35.3 32.0-36.0 g/dL Red Cell Distribution Width 17.5 H 11.8-14.3 % Platelet Count 34 L 140-450 10^3/uL Mean Platelet Volume 11.0 H 6.9-10.8 fL Neutrophils (%) (Auto) 68.3 37.0-80.0 % Lymphocytes (%) (Auto) 13.4 10.0-50.0 % Monocytes (%) (Auto) 14.8 H 0.0-12.0 % Eosinophils (%) (Auto) 2.9 0.0-7.0 % Basophils (%) (Auto) 0.6 0.0-2.0 % Neutrophils # (Auto) 2.9 1.6-8.6 10 ^3/uL Lymphocytes # (Auto) 0.6 0.4-5.4 10 ^3/uL Monocytes # (Auto) 0.6 0-1.3 10 ^3/uL Eosinophils # (Auto) 0.1 0-0.8 10 ^3/uL Basophils # (Auto) 0 0-0.2 10 ^3/uL Nucleated Red Blood Cells 1.0 % Platelet Estimate Decreased Poikilocytosis (manual) Slight Anisocytosis (manual) Slight Macrocytosis Moderate Ankush Cells Few B-Type Natriuretic Peptide > 5000.00 0-100 pg/mL Prothrombin Time 20.0 H 9.3-11.8 sec Prothrombin Time INR 1.99 H 0.9-1.15 Activated Partial Thromboplast Time 60.9 H 24.5-34.5 SEC Sodium Level 129 L 136-145 mmol/L Potassium Level 4.9 3.5-5.1 mmol/L Chloride Level 95 L 98-107 mmol/L Carbon Dioxide Level 25 20-31 mmol/L Anion Gap 9 5-15 Blood Urea Nitrogen 43 H 9-23 mg/dL Creatinine 5.17 H 0.700-1.30 mg/dL Glomerular Filtration Rate Calc 12 >90 mL/min BUN/Creatinine Ratio 8.3 L 10.0-20.0 Serum Glucose 74 74-106 mg/dL Lactic Acid Level 1.3 0.4-2.0 mmol/L Calcium Level 10.2 8.7-10.4 mg/dL Total Bilirubin 42.8 H 0.2-1.0 mg/dL Aspartate Amino Transferase (AST) 116 H 13-40 U/L Alanine Aminotransferase (ALT) 291 H 7-40 U/L Alkaline Phosphatase 121 H 46-116 U/L Ammonia 21 11-32 umol/L Troponin I High Sensitivity 30 </=54 ng/L Total Protein 6.7 5.7-8.2 g/dL Albumin 2.8 L 3.2-4.8 g/dL PROCEDURE(s): CXRP - CHEST PORTABLE IMPRESSION: Cardiomegaly with mild CHF Hep-Lock was established The BNP is greater than 5000 The INR is 1.99 The chemistry panel shows a BUN of 43 and a creatinine of 5.17 This is consistent with a renal failure The CBC shows anemia with a hemoglobin of 9.9 The patient was being admitted to the hospitalist Images Reviewed?: Images reviewed and evaluated by me Time of 1ST Reevaluation: 15:28 Reevaluation 1ST: Unchanged Patient Education/Counseling: Other (The patient was somewhat confused) Family Education/Counseling: No Family Present Departure 1 Departure Time of Disposition: 20:08 Impression: Primary Impression: Metabolic encephalopathy Disposition: 09 ADMITTED INPATIENT Admit to: [facility] Condition: Fair Critical Care Note Critical Care Time?: No Stability Stability form required: Yes Unstable for transfer: Telemetry monitoring (Telemetry monitoring required), ED Physician Assesment (Clinical assesment) Heart Score Heart Score: Heart Score Response (Comments) Value History N/A 0 EKG N/A 0 Age N/A 0 Risk Factors N/A 0 Troponin N/A 0 Total 0 I personally scribed for BELÉN NAILS MD ([email or web address]) on 04/16/24 at 15:24. Electronically submitted by Anju Mack ([email or web address]). I personally scribed for BELÉN NAILS MD ([email or web address]) on 04/16/24 at 16:01. Electronically submitted by Anju Mack ([email or web address]). BELÉN NAILS MD Apr 16, 2024 15:24
--- NOTE | 2024-04-16 15:55 | DVH ---
CHEST RADIOGRAPH Indication:aloc Technique: Single frontal view of the chest was obtained Comparison: XY CHEST PORTABLE on DOS: 07/07/23 FINDINGS: Lines and Tubes: Left-sided pacemaker/ AICD. Lungs: No focal consolidation. Pleura: No effusion. No pneumothorax. Cardiomediastinal contours: Cardiomegaly Bones: No acute osseous abnormality. IMPRESSION: Cardiomegaly with mild CHF
[2024-04-16 16:00] VITALS: PULSE 70; RESP 12; O2SAT 98
[2024-04-16 16:57] LABS: Alkaline Phosphatase 121 U/L (46-116); Chloride 95 mmol/L (98-107); Potassium 4.9 mmol/L (3.5-5.1); Sodium 129 mmol/L (136-145)
[2024-04-16 16:59] LABS: Alanine Aminotransferase 291 U/L (7-40); Albumin 2.8 g/dL (3.2-4.8); Anion Gap 9 (5-15); Aspartate Aminotransferase 116 U/L (13-40); BUN/Creatinine Ratio 8.3 (10.0-20.0); Blood Urea Nitrogen 43 mg/dL (9-23); Calcium 10.2 mg/dL (8.7-10.4); Carbon Dioxide 25 mmol/L (20-31); Glucose 74 mg/dL (74-106); Total Protein 6.7 g/dL (5.7-8.2)
[2024-04-16 17:00] LABS: INR 1.99 (0.9-1.15); Partial Thromboplastin Time 60.9 SEC (24.5-34.5)
[2024-04-16 17:09] LABS: Bilirubin, Total 42.8 mg/dL (0.2-1.0)
[2024-04-16] MEDS ORDERED: ACETAMINOPHEN 325 MG TAB PO PRN (17:45)
[2024-04-16] MEDS ORDERED: ALBUTEROL SULF 2.5 MG/0.5ML(0.5%) NEB SOLN NEB PRN (17:45)
[2024-04-16] MEDS ORDERED: ONDANSETRON HCL 4 MG/2 ML VIAL IV PRN (17:45)
[2024-04-16] MEDS ORDERED: IBUPROFEN 600 MG TAB PO PRN (18:15)
[2024-04-16 18:27] VITALS: BP 107/75; PULSE 70; RESP 12; TEMP 98.4; O2SAT 98
[2024-04-16 18:33] LABS: Basophils # (auto) 0 10 ^3/uL (0-0.2); Basophils % (auto) 0.6 % (0.0-2.0); Eosinophils # (auto) 0.1 10 ^3/uL (0-0.8); Eosinophils % (auto) 2.9 % (0.0-7.0); Lymphocytes # (auto) 0.6 10 ^3/uL (0.4-5.4); Monocytes # (auto) 0.6 10 ^3/uL (0-1.3)
[2024-04-16 18:35] LABS: Hematocrit 28.2 % (41.0-53.0); Hemoglobin 9.9 g/dL (13.5-17.5); Lymphocytes % (auto) 13.4 % (10.0-50.0); Mean Corpuscular Hemoglobin 37.5 pg (28.0-32.0); Mean Corpuscular Hgb Conc. 35.3 g/dL (32.0-36.0); Mean Corpuscular Volume 106.3 fL (80.0-100.0); Monocytes % (auto) 14.8 % (0.0-12.0); Neutrophils # (auto) 2.9 10 ^3/uL (1.6-8.6); Neutrophils % (auto) 68.3 % (37.0-80.0); Red Blood Cells 2.65 10^6/uL (4.5-5.90); Red Cell Distribution Width 17.5 % (11.8-14.3); White Blood Cell 4.2 10^3/uL (4.4-10.8)
[2024-04-16 18:37] VITALS: O2SAT 98
[2024-04-16 18:51] LABS: Platelet Count (auto) 34 10^3/uL (140-450); Platelet Estimate Decreased
[2024-04-16 18:52] LABS: Anisocytosis Slight
[2024-04-16 18:53] LABS: Macrocytosis Moderate
[2024-04-16] MEDS ORDERED: MORPHINE SULFATE INJ 2 MG/ml SYRG IV PRN (20:00)
[2024-04-16] MEDS ORDERED: NITROGLYCERIN 0.4 MG SL TAB SL PRN (20:00)
--- NOTE | 2024-04-16 20:00 | DVHHP2 ---
History of Present Illness Reason for Visit: Altered mental status History of Present Illness The patient is a 58-year-old female with past medical history of COPD, CHF, hypertension, and ESRD on dialysis who presented to [facility] ED for evaluation of altered level of consciousness. As reported by EMS, family me lamar noticed patient was altered for the past 4 days, jaundice, has dialysis every Tuesday, Tuesday and Tuesday, and missed today. Patient was seen and evaluated in the ED, laboratory data shows WBC 4.2, hemoglobin 9.9, hematocrit 28.0, platelets 67104, sodium 129, potassium 4.9, BUN 43, creatinine 5.17, glucose 74, albumin 2.8, ammonia 21, BNP > 5000, PT 20.0, INR 1.99, PTT 60.9, AST 116, ALT 291. Chest x-ray revealing cardiomegaly with mild CHF. Please see medication orders section in the computer. On my assessment, caregiver at bedside, patient remains altered, no diaphoresis, currently on oxygen, no nausea, no vomiting, no fever, no chills. Patient was admitted for further evaluation and medical management. Past Medical History CHF, COPD, HTN, ESRD on hemodialysis Past Surgical History Dialysis access Family History Reviewed, noncontributory to the management of this case. Past Social History The patient lives at home, denies smoking, alcohol or illicit drugs abuse. Review of Systems Constitutional: Yes: Weakness; No: Fever, Chills, Sweats, Malaise, Other Eyes: No: Pain, Vision change, Conjunctivae inflammation, Eyelid inflammation, Other, Redness ENT: No: Ear pain, Ear discharge, Nose pain, Nose discharge, Nose congestion, Mouth pain, Mouth swelling, Throat pain, Throat swelling, Other Respiratory: No: Cough, Dry, Shortness of breath, SOB with excertion, Wheezing, Hemoptysis, Pleuritic Pain, Sputum, Wheezing, Other Cardiovascular: No: Chest Pain, Palpitations, Orthopnea, Paroxysmal Noc. Dyspnea, Edema, Lt Headedness, Other Gastrointestinal: No: Nausea, Vomiting, Abdominal Pain, Diarrhea, Constipation, Melena, Hematochezia, Other Genitourinary: No Dysuria, No Frequency, No Incontinence, No Hematuria, No Retention; Other (On hemodialysis) Musculoskeletal: No: other, neck pain, shoulder pain, arm pain, back pain, hand pain, leg pain, foot pain Skin: Jaundice; No: Rash, Lesions, Bruising, Other Neurological: No: Weakness, Numbness, Incoordination, Change in speech, Confusion, Seizures, Other Allergies: Coded Allergies: Furosemide (Verified Allergy, Unknown, 02/28/23) Medications Current Medications Medications Dose Ordered Sig/Izabela Route Start Time Stop Time Status Last Admin Dose Admin Carvedilol 3.125 mg Q12HR PO 04/16/24 22:00 Atorvastatin Calcium 20 mg HS PO 04/16/24 22:00 Future Hold Albuterol 2.5 mg Q4HPRN PRN NEB 04/16/24 17:45 Aspirin 81 mg DAILY PO 04/17/24 10:00 Sodium Chloride 10 ml Q8HR IV 04/16/24 22:00 Acetaminophen/ Hydrocodone Bitart 1 tab Q4HP PRN PO 04/16/24 17:45 Ondansetron HCl 4 mg Q4HP PRN IV 04/16/24 17:45 Docusate Sodium 100 mg BIDPRN PRN PO 04/16/24 17:45 Ibuprofen 600 mg Q6HP PRN PO 04/16/24 18:15 Hold Exam Vital Signs Vital Signs Date Time Temp Pulse Resp B/P (MAP) Pulse Ox O2 Delivery O2 Flow Rate FiO2 04/16/24 19:30 97.7 65 12 103/75 (84) 98 97.7 04/16/24 19:25 Nasal Cannula* 3 32 General Appearance: Alert, Cooperative, No acute distress, Other (Oriented x1) HEENT: Atraumatic, PERRLA, EOMI, Mucous membr. moist/pink Respiratory: Normal air movement, Other (Diminished breath sounds) Cardiovascular: Regular rate, Normal S1, Normal S2, No murmurs Abdominal: Normal bowel sounds, Soft, No tenderness, No hepatospenomegaly, No masses Extremities: No clubbing, No cyanosis, No edema, Normal pulses, No tenderness/swelling Skin: No rashes, No breakdown, No significant lesion Neuro: Normal tone, Sensation intact, Cranial nerves 3-12 NL, Reflexes 2+, Other (Generalized weakness) Psych/Mental Status: Mood NL, Other (Altered mental status) Labs/Xrays Labs Test 04/16/24 18:13 04/16/24 14:14 Range/Units White Blood Count 4.2 L 4.4-10.8 10^3/uL Red Blood Count 2.65 L 4.5-5.90 10^6/uL Hemoglobin 9.9 L 13.5-17.5 g/dL Hematocrit 28.2 L 41.0-53.0 % Mean Corpuscular Volume 106.3 H 80.0-100.0 fL Mean Corpuscular Hemoglobin 37.5 H 28.0-32.0 pg Mean Corpuscular Hemoglobin Concent 35.3 32.0-36.0 g/dL Red Cell Distribution Width 17.5 H 11.8-14.3 % Platelet Count 34 L 140-450 10^3/uL Mean Platelet Volume 11.0 H 6.9-10.8 fL Neutrophils (%) (Auto) 68.3 37.0-80.0 % Lymphocytes (%) (Auto) 13.4 10.0-50.0 % Monocytes (%) (Auto) 14.8 H 0.0-12.0 % Eosinophils (%) (Auto) 2.9 0.0-7.0 % Basophils (%) (Auto) 0.6 0.0-2.0 % Neutrophils # (Auto) 2.9 1.6-8.6 10 ^3/uL Lymphocytes # (Auto) 0.6 0.4-5.4 10 ^3/uL Monocytes # (Auto) 0.6 0-1.3 10 ^3/uL Eosinophils # (Auto) 0.1 0-0.8 10 ^3/uL Basophils # (Auto) 0 0-0.2 10 ^3/uL Nucleated Red Blood Cells 1.0 % Platelet Estimate Decreased Poikilocytosis (manual) Slight Anisocytosis (manual) Slight Macrocytosis Moderate Ankush Cells Few B-Type Natriuretic Peptide > 5000.00 0-100 pg/mL Prothrombin Time 20.0 H 9.3-11.8 sec Prothrombin Time INR 1.99 H 0.9-1.15 Activated Partial Thromboplast Time 60.9 H 24.5-34.5 SEC Sodium Level 129 L 136-145 mmol/L Potassium Level 4.9 3.5-5.1 mmol/L Chloride Level 95 L 98-107 mmol/L Carbon Dioxide Level 25 20-31 mmol/L Anion Gap 9 5-15 Blood Urea Nitrogen 43 H 9-23 mg/dL Creatinine 5.17 H 0.700-1.30 mg/dL Glomerular Filtration Rate Calc 12 >90 mL/min BUN/Creatinine Ratio 8.3 L 10.0-20.0 Serum Glucose 74 74-106 mg/dL Lactic Acid Level 1.3 0.4-2.0 mmol/L Calcium Level 10.2 8.7-10.4 mg/dL Total Bilirubin 42.8 H 0.2-1.0 mg/dL Aspartate Amino Transferase (AST) 116 H 13-40 U/L Alanine Aminotransferase (ALT) 291 H 7-40 U/L Alkaline Phosphatase 121 H 46-116 U/L Ammonia 21 11-32 umol/L Troponin I High Sensitivity 30 </=54 ng/L Total Protein 6.7 5.7-8.2 g/dL Albumin 2.8 L 3.2-4.8 g/dL PATIENT: HEATH ALARCONACCT: [id number] UNIT: [id number] : 1965 LOC: ER ROOM / BED: / AGE / SEX: 58 / M ADM STATUS: REG ER SERVICE 1520 ORDERING PHYSICIAN: BELÉN NAILS MD PROCEDURE(s): CXRP - CHEST PORTABLE REASON: aloc ORDER NUMBER(s): [id number], ACCESSION NUMBER(s): [id number] CHEST RADIOGRAPH Indication:aloc Technique: Single frontal view of the chest was obtained Comparison: XY CHEST PORTABLE on DOS: 07/07/23 FINDINGS: Lines and Tubes: Left-sided pacemaker/ AICD. Lungs: No focal consolidation. Pleura: No effusion. No pneumothorax. Cardiomediastinal contours: Cardiomegaly Bones: No acute osseous abnormality. IMPRESSION: Cardiomegaly with mild CHF Assessment/Plan Assessment/Plan Metabolic encephalopathy Cardiomegaly Pancytopenia Anemia of chronic disease Electrolyte imbalance Generalized weakness Elevated liver enzymes End-stage renal disease on hemodialysis Acute exacerbation of congestive heart failure Plan 1. Admit to telemetry unit 2. Breathing treatment 3. Pain control management 4. Management of fluids and electrolytes 5. Consultation for Nephrology 6. Diagnostic tests chest x-ray 7. DVT prophylaxis on aspirin 8. Repeat labs CBC, CMP in a.m. 9. Continue with current medical management 10. Treatment plan discussed with patient and RN. Patient/caregiver verbalized understanding. Plan discussed with: Patient, Other (RN) My Orders Orders - PRINCESS RIOS DNP Procedure Category Date Status Time Carvedilol Tablet PHA 04/16/24 In Process (Coreg Tablet) 22:00 Atorvastatin (Lipitor) PHA 04/16/24 In Process 22:00 Albuterol Medneb PHA 04/16/24 In Process (Ventolin Medneb) 17:45 Aspirin Tablet PHA 04/17/24 In Process 10:00 Allergies CARLEEN 04/16/24 In Process 17:42 Code Status CODE 04/16/24 Transmitted 17:42 Sodium Chloride Lock PHA 04/16/24 In Process (Saline Lock Ns) 22:00 Oxygen Per Hour RT 04/16/24 Transmitted 17:42 Hydrocodone-Acet PHA 04/16/24 In Process 5/325mg Tab (Ambrose 17:45 Ondansetron Hcl PHA 04/16/24 In Process (Zofran) 17:45 Docusate Sodium PHA 04/16/24 In Process Capsule (Colace 17:45 Fall Risk Precautions CARLEEN 04/16/[address] 17:42 Complete Blood Count LAB 04/17/24 Verified 04:00 Comprehensive LAB 04/17/24 Verified Metabolic Panel 04:00 Cardiac DIET 04/16/24 Transmitted Diet-2gna,Lofat,Lochol Dinner Condition: Serious CARLEEN 04/16/24 In Process 17:42 Maintain Bed Rest CARLEEN 04/16/24 In Process 17:42 Sequential CARLEEN 04/16/24 In Process Compression Device Ibuprofen Tablet PHA 04/16/24 In Process (Motrin Tablet) 18:15 Clarification Of ORDERS 04/16/24 Transmitted Order: 18:21 *Dr. Ximena Ochoa -Da CONS 04/16/24 Verified Kasie 19:57 Admit ADMIT 04/16/24 Verified 19:57 Nitroglycerin PHA 04/16/24 Verified Sublingual (Ntrostat 20:00 Morphine Sulfate PHA 04/16/24 Verified Injection 20:00 Notify Of Changes [facility] [place] 04/16/24 Verified From Base 19:57 Adobe Ball Mixer For [facility] [place] 04/16/24 Verified 24 Hours 19:57 Emergency Dysrhythmia CARLEEN 04/16/24 Verified Protocol 19:57 Rhythm Strips Once [facility] [place] 04/16/24 Verified Every Shift 19:57 Oxygen By Nasal RT 04/16/24 Verified Cannula 19:57 Problem List: (1) Metabolic encephalopathy (2) Anemia of chronic disease (3) Cardiomegaly (4) End-stage renal disease on hemodialysis (5) Electrolyte imbalance (6) Pancytopenia (7) Elevated liver enzymes (8) Generalized weakness (9) Acute exacerbation of congestive heart failure Date of Service: Apr 16, 2024 Billing Provider: PRINCESS RIOS DNP Common Visit Codes: [id number] INP/OBS CARE (HIGH) PRINCESS RIOS DNP Apr 16, 2024 20:00
[2024-04-16] MEDS: MELATONIN 5 MG TAB PO SCH (21:31)
[2024-04-16] MEDS: CARVEDILOL 3.125 MG TAB PO SCH (21:31)
[2024-04-16] MEDS: HYDROcodone-ACET 5/325MG TAB PO PRN (21:32)
[2024-04-16] MEDS ORDERED: ATORVASTATIN 20 MG TAB PO SCH (22:00)
[2024-04-16] MEDS: SODIUM CHLOR 0.9% PF (SALINE LOCK) 10ML VIAL/SYR IV SCH (22:01)
[2024-04-17 04:01] LABS: Basophils # (auto) 0 10 ^3/uL (0-0.2); Basophils % (auto) 0.5 % (0.0-2.0); Eosinophils # (auto) 0.1 10 ^3/uL (0-0.8); Eosinophils % (auto) 1.8 % (0.0-7.0); Hematocrit 31.1 % (41.0-53.0); Lymphocytes # (auto) 0.7 10 ^3/uL (0.4-5.4); Lymphocytes % (auto) 13.3 % (10.0-50.0); Mean Corpuscular Hemoglobin 35.7 pg (28.0-32.0); Mean Corpuscular Hgb Conc. 32.3 g/dL (32.0-36.0); Mean Corpuscular Volume 110.6 fL (80.0-100.0); Monocytes # (auto) 0.7 10 ^3/uL (0-1.3); Monocytes % (auto) 14.8 % (0.0-12.0); Neutrophils # (auto) 3.5 10 ^3/uL (1.6-8.6); Neutrophils % (auto) 69.6 % (37.0-80.0); Nucleated Red Blood Cells % 0.9 %; Platelet Count (auto) 35 10^3/uL (140-450); Red Blood Cells 2.81 10^6/uL (4.5-5.90); Red Cell Distribution Width 18.4 % (11.8-14.3)
[2024-04-17 04:05] LABS: Alkaline Phosphatase 130 U/L (46-116); Chloride 95 mmol/L (98-107); Potassium 5.2 mmol/L (3.5-5.1); Sodium 131 mmol/L (136-145)
[2024-04-17 04:08] LABS: Alanine Aminotransferase 272 U/L (7-40); Albumin 2.8 g/dL (3.2-4.8); Anion Gap 11 (5-15); Aspartate Aminotransferase 110 U/L (13-40); Blood Urea Nitrogen 52 mg/dL (9-23); Calcium 10.3 mg/dL (8.7-10.4); Carbon Dioxide 25 mmol/L (20-31); Total Protein 6.7 g/dL (5.7-8.2)
[2024-04-17 04:12] LABS: Glucose 39 mg/dL (74-106)
[2024-04-17 04:16] LABS: Bilirubin, Total 42.5 mg/dL (0.2-1.0)
[2024-04-17] MEDS: DEXTROSE (50%) 50ML SYRG IV ONE (04:24)
[2024-04-17] MEDS: DEXTROSE 50% SYRINGE 50 ML IV ONE (04:25)
--- NOTE | 2024-04-17 07:11 | ECG ---
[facility] Test Date: 2024-04-16 Test Time: 15:05:27 Pat Name: HEATH ALARCON Department: er Room: 0274T Gender: M Senior Java Engineer: natanael : 1965 Requested By: BELÉN NAILS Order Number: [id number] Reading MD: Junior Vogel Measurements Intervals [place] Rate: 77 P: 47 NH: 201 QRS: -68 QRSD: 153 T: 99 QT: 469 QTc: 531 Interpretive Statements Sinus rhythm Probable left atrial enlargement Left bundle branch block Baseline wander in lead(s) V3 Electronically Signed On 04-19-2024 11:16:57 PST by Junior Vogel Please click the below link to view image of tracing.
[2024-04-17] MEDS: ASPirin 81 mg TAB PO SCH (10:00)
[2024-04-17] MEDS: SODIUM CHL 0.9% 1000 ML BAG XX ONE (12:25)
[2024-04-17] MEDS: ALBUMIN 25% 100 ML IV ONE (12:39)
--- NOTE | 2024-04-17 13:11 | DVHPN2 ---
Reviewed: Care Plan, H&P, Labs, Medications, Previous Orders, Radiology Changes from previous H/P or p: No Changes Eyes: No Pain, No Vision change, No Conjunctivae inflammation, No Eyelid inflammation, No Other, No Redness ENT: No Ear pain, No Ear discharge, No Nose pain, No Nose discharge, No Nose congestion, No Mouth pain, No Mouth swelling, No Throat pain, No Throat swelling, No Other Cardiovascular: No Chest Pain, No Palpitations, No Orthopnea, No Paroxysmal Noc. Dyspnea, No Edema, No Lt Headedness, No Other Respiratory: No Cough, No Dry, No Shortness of breath, No SOB with excertion, No Wheezing, No Hemoptysis, No Pleuritic Pain, No Sputum, No Other Gastrointestinal: No Nausea, No Vomiting, No Abdominal Pain, No Diarrhea, No Constipation, No Melena, No Hematochezia, No Other Genitourinary: Other Musculoskeletal: No other, No neck pain, No shoulder pain, No arm pain, No back pain, No hand pain, No leg pain, No foot pain Skin: Jaundice Objective Vitals Vital Signs Date Time Temp Pulse Resp B/P (MAP) Pulse Ox O2 Delivery O2 Flow Rate FiO2 04/17/24 10:34 60 04/17/24 10:00 101/69 (80) 100 04/17/24 08:00 98.2 98.2 04/17/24 06:00 11 04/16/24 19:25 Nasal Cannula* 3 32 Medications Current Medications Medications Dose Ordered Sig/Izabela Route Start Time Stop Time Status Last Admin Dose Admin Carvedilol 3.125 mg Q12HR PO 04/16/24 22:00 04/16/24 21:31 3.125 MG Atorvastatin Calcium 20 mg HS PO 04/16/24 22:00 Hold Albuterol 2.5 mg Q4HPRN PRN NEB 04/16/24 17:45 Aspirin 81 mg DAILY PO 04/17/24 10:00 Sodium Chloride 10 ml Q8HR IV 04/16/24 22:00 04/17/24 06:00 10 ML Acetaminophen/ Hydrocodone Bitart 1 tab Q4HP PRN PO 04/16/24 17:45 04/16/24 21:32 1 TAB Ondansetron HCl 4 mg Q4HP PRN IV 04/16/24 17:45 Docusate Sodium 100 mg BIDPRN PRN PO 04/16/24 17:45 Ibuprofen 600 mg Q6HP PRN PO 04/16/24 18:15 Hold Nitroglycerin 0.4 mg Q5MINP PRN SL 04/16/24 20:00 Morphine Sulfate 2 mg Q30M PRN IV 04/16/24 20:00 Melatonin 5 mg HS PO 04/16/24 22:00 04/16/24 21:31 5 MG Laboratory Results Laboratory Tests 04/17/24 03:31 Chemistry Test 04/16/24 14:14 04/17/24 03:31 Albumin 2.8 g/dL (3.2-4.8) L 2.8 g/dL (3.2-4.8) L Calcium Level 10.2 mg/dL (8.7-10.4) 10.3 mg/dL (8.7-10.4) Total Protein 6.7 g/dL (5.7-8.2) 6.7 g/dL (5.7-8.2) Coagulation Test 04/16/24 14:14 Prothrombin Time 20.0 sec (9.3-11.8) H Prothrombin Time INR 1.99 (0.9-1.15) H Activated Partial Thromboplast Time 60.9 SEC (24.5-34.5) H Cardiac Markers Test 04/16/24 18:13 B-Type Natriuretic Peptide > 5000.00 pg/mL (0-100) LFT Test 04/16/24 14:14 04/17/24 03:31 Alanine Aminotransferase (ALT) 291 U/L (7-40) H 272 U/L (7-40) H Alkaline Phosphatase 121 U/L (46-116) H 130 U/L (46-116) H Aspartate Amino Transferase (AST) 116 U/L (13-40) H 110 U/L (13-40) H Total Bilirubin 42.8 mg/dL (0.2-1.0) H 42.5 mg/dL (0.2-1.0) H Labs and/or images reviewed: Labs reviewed by me, Image(s) reviewed by me Assessment/Plan Assessment/Plan Acute metabolic encephalopathy Severe jaundice with bilirubin 42 and elevated liver function tests: CT abdomen pelvis without contrast, liver ultrasound, hepatitis panel, GI consult by Dr. Karina Enamorado ESRD on Hemodialysis nephrology consult for Dr. Bueno Acute on chronic CHF exacerbation Acute COPD exacerbation Hypertension Acute hyponatremia sodium 129 Cardiomegaly Severe malnutrition Time spent 65 minutes Patient is full code Advanced care planning time 20 minutes Plan discussed with: Patient My Orders Orders - BERTA SANDOVAL MD Procedure Category Date Status Time * [facility] [employer] Supervisor CONS 04/17/24 Transmitted 13:05 Acute Hepatitis Panel LAB 04/17/24 Logged 13:06 Ct Ab Pel Wo Con-No CT 04/17/24 Verified Oral Or Iv 13:07 LIVER US 04/17/24 Verified 13:07 Date of Service: Apr 17, 2024 Billing Provider: BERTA SANDOVAL MD Common Visit Codes: [id number] CARE 30-74 MIN BERTA SANDOVAL MD Apr 17, 2024 13:11
--- NOTE | 2024-04-17 14:01 | DVHPN2 ---
Progress Note - Dictate Date Seen: Apr 17, 2024 Medical Necessity Reason Pt with a Central, PICC or Fol: Yes Subjective PT ADMITTED TO [facility] WITH METABOLIC ENCEPHALOPATHY FAMILY TOOK PT OUT OF [facility] AND BROUGHT HIM HERE TO [facility] BECAUSE THEY WANTED MY OPINION PT WITH METABOLIC ENCEPHALOPATHY ESRD ON HD ORG HD NORMAL CORONARIES EF <10% SEVERE TR SEVERE MR SEVERE PAH SECONDARY TO LEFT HEART FAILURE S/P BiV AICD HTN ELEVATED LIVER ENZYMES SECONDARY TO CHF LEFT HF CONTRIBUTING TO LIVER FAILRE PTs PROGNOSIS POOR DISCUSSED WITH PATTY ABOUT HOSPICE SERVICE vital signs Vital Sign Date Time Temp Pulse Resp B/P (MAP) Pulse Ox O2 Delivery O2 Flow Rate FiO2 04/17/24 10:34 60 04/17/24 10:00 101/69 (80) 100 04/17/24 08:00 98.2 98.2 04/17/24 06:00 11 04/16/24 19:25 Nasal Cannula* 3 32 medications Current Medications Medications Dose Ordered Sig/Izabela Route Start Time Stop Time Status Last Admin Dose Admin Carvedilol 3.125 mg Q12HR PO 04/16/24 22:00 04/16/24 21:31 3.125 MG Atorvastatin Calcium 20 mg HS PO 04/16/24 22:00 Hold Albuterol 2.5 mg Q4HPRN PRN NEB 04/16/24 17:45 Aspirin 81 mg DAILY PO 04/17/24 10:00 Sodium Chloride 10 ml Q8HR IV 04/16/24 22:00 04/17/24 06:00 10 ML Acetaminophen/ Hydrocodone Bitart 1 tab Q4HP PRN PO 04/16/24 17:45 04/16/24 21:32 1 TAB Ondansetron HCl 4 mg Q4HP PRN IV 04/16/24 17:45 Docusate Sodium 100 mg BIDPRN PRN PO 04/16/24 17:45 Ibuprofen 600 mg Q6HP PRN PO 04/16/24 18:15 Hold Nitroglycerin 0.4 mg Q5MINP PRN SL 04/16/24 20:00 Morphine Sulfate 2 mg Q30M PRN IV 04/16/24 20:00 Melatonin 5 mg HS PO 04/16/24 22:00 04/16/24 21:31 5 MG laboratory and microbiology Laboratory Tests 04/17/24 03:31 Test 04/17/24 03:31 Range/Units Serum Glucose 39 *L 74-106 mg/dL Problem List PT ADMITTED TO [facility] WITH METABOLIC ENCEPHALOPATHY FAMILY TOOK PT OUT OF [facility] AND BROUGHT HIM HERE TO [facility] BECAUSE THEY WANTED MY OPINION PT WITH METABOLIC ENCEPHALOPATHY ESRD ON HD ORG HD NORMAL CORONARIES EF <10% SEVERE TR SEVERE MR SEVERE PAH SECONDARY TO LEFT HEART FAILURE S/P BiV AICD HTN ELEVATED LIVER ENZYMES SECONDARY TO CHF LEFT HF CONTRIBUTING TO LIVER FAILRE PTs PROGNOSIS POOR DISCUSSED WITH PATTY ABOUT HOSPICE SERVICE ANEMIA HYPERKALEMIA Assessment/Plan [facility] HOSPICE CONSULT Plan discussed with: Spouse, Daughter CELESTE MOCTEZUMA MD Apr 17, 2024 14:01
[2024-04-17] MEDS: SODIUM CHLORIDE 0.9% 1,000 ML IV SCH (15:06)
--- NOTE | 2024-04-17 15:59 | DVHINCON2 ---
Date of service: Apr 17, [address] Huang Reason for Consultation Dialysis History of Present Illness 58 Y/O M with history of ESRD on HD, systolic CHF, s/p AICD severe TR, severe MR, HTN, and COPD presented with AMS. Patient was initially was [facility] and was transferred for further management. Family had noticed severe Jaundice. Labs significant for bilirubin of 42, INR: 1.99. latest K is 5.2 mmol/l. AST: 110, ALT: 272. Patients blood pressure has been borderline low in 100s systolic. Nephrology consulted for dialysis Past Medical History ESRD Systolic CHF HTN Tricuspid regurgitation Allergies: Coded Allergies: Furosemide (Verified Allergy, Unknown, 02/28/23) Home Meds Reported Medications Apixaban Base (ELIQUIS) 5 Mg Tab, 1 TAB PO BID for ARRYTHMIA 07/07/23 Megestrol Acetate (Megestrol Acetate) 40 Mg Tab, 1 TAB PO BID for LOSS OF APPETITE 07/07/23 Empagliflozin (Jardiance) 10 Mg Tab, 1 TAB PO DAILY for DIABETES 07/05/23 Ivabradine Hydrochloride (Corlanor) 5 Mg Tab, 1 TAB PO BID for HEART FAILURE 07/05/23 Duloxetine HCl (Duloxetine HCl) 60 Mg Cap, 1 CAP PO BID for DEPRESSION 05/05/23 Carvedilol (Carvedilol) 25 Mg Tab, 1 TAB PO BID for HYPERTENSION 04/06/23 Bumetanide (Bumetanide) 2 Mg Tab, 1 TAB PO DAILY for EDEMA 04/06/23 Atorvastatin Calcium (ATORVASTATIN CALCIUM) 40 Mg Tab, 1 TAB PO DAILY for HIGH C HOLESTEROL 04/06/23 Isosorbide Dinitrate (Isosorbide Dinitrate) 20 Mg Tab, 1 TAB PO BID for ANGINA 04/06/23 Current Medications Current Medications Medications (Trade) Dose Ordered Sig/Izabela Route PRN Reason Start Time Stop Time Status Last Admin Carvedilol (Coreg Tablet) 3.125 mg Q12HR PO 04/16/24 22:00 04/16/24 21:31 Atorvastatin Calcium (Lipitor) 20 mg HS PO 04/16/24 22:00 Hold Albuterol (Ventolin Medneb) 2.5 mg Q4HPRN PRN NEB SHORTNESS OF BREATH 04/16/24 17:45 Aspirin 81 mg DAILY PO 04/17/24 10:00 Sodium Chloride (Saline Lock Ns) 10 ml Q8HR IV 04/16/24 22:00 04/17/24 14:06 Acetaminophen/ Hydrocodone Bitart ([place] 5/325MG Tab) 1 tab Q4HP PRN PO MODERATE PAIN (4-6 PAIN SCALE) 04/16/24 17:45 04/16/24 21:32 Ondansetron HCl (Zofran) 4 mg Q4HP PRN IV NAUSEA / VOMITING 04/16/24 17:45 Docusate Sodium (Colace Capsule) 100 mg BIDPRN PRN PO FOR CONSTIPATION 04/16/24 17:45 Acetaminophen (Tylenol Tablet) 650 mg Q6HP PRN PO PAIN SCALE 1-3 OR TEMP>100.4 04/16/24 17:45 04/16/24 18:13 DC Ibuprofen (Motrin Tablet) 600 mg Q6HP PRN PO PAIN SCALE 1-3 OR TEMP>100.4 04/16/24 18:15 Hold Nitroglycerin (Ntrostat Sublingual) 0.4 mg Q5MINP PRN SL FOR CHEST PAIN 04/16/24 20:00 Morphine Sulfate 2 mg Q30M PRN IV FOR CHEST PAIN 04/16/24 20:00 Melatonin (Melatonin) 5 mg HS PO 04/16/24 22:00 04/16/24 21:31 Sodium Chloride 1,000 ml @ 60 mls/hr [id number] IV 04/17/24 15:00 04/17/24 15:06 Family History: Patient reports no known family medical history. Review of Systems As per HPI, all other systems were reviewed and are negative. H&P Exam Vital Signs/I&O Vital Sign Date Time Temp Pulse Resp B/P (MAP) Pulse Ox O2 Delivery O2 Flow Rate FiO2 04/17/24 14:00 64 16 108/72 (84) 95 04/17/24 12:00 98.7 98.7 04/17/24 07:38 Nasal Cannula* 3 32 Physical Exam Gen: NAD HEENT: NC, AT Lungs: Crackles lung bases Cardiac: RRR, + systolic murmur Abd: soft Ext: no edema Skin: + Jaundice Labs/Diagnostic Data Labs/Diagnostic Data Laboratory Tests Test 04/17/24 09:05 04/17/24 05:12 04/17/24 03:31 04/16/24 18:13 Range/Units POC Glucose 75 99 70-106 mg/dl White Blood Count 5.0 4.2 L 4.4-10.8 10^3/uL Red Blood Count 2.81 L 2.65 L 4.5-5.90 10^6/uL Hemoglobin 10.0 L 9.9 L 13.5-17.5 g/dL Hematocrit 31.1 #L 28.2 L 41.0-53.0 % Mean Corpuscular Volume 110.6 #H 106.3 H 80.0-100.0 fL Mean Corpuscular Hemoglobin 35.7 H 37.5 H 28.0-32.0 pg Mean Corpuscular Hemoglobin Concent 32.3 35.3 32.0-36.0 g/dL Red Cell Distribution Width 18.4 H 17.5 H 11.8-14.3 % Platelet Count 35 L 34 L 140-450 10^3/uL Mean Platelet Volume 11.5 H 11.0 H 6.9-10.8 fL Neutrophils (%) (Auto) 69.6 68.3 37.0-80.0 % Lymphocytes (%) (Auto) 13.3 13.4 10.0-50.0 % Monocytes (%) (Auto) 14.8 H 14.8 H 0.0-12.0 % Eosinophils (%) (Auto) 1.8 2.9 0.0-7.0 % Basophils (%) (Auto) 0.5 0.6 0.0-2.0 % Neutrophils # (Auto) 3.5 2.9 1.6-8.6 10 ^3/uL Lymphocytes # (Auto) 0.7 0.6 0.4-5.4 10 ^3/uL Monocytes # (Auto) 0.7 0.6 0-1.3 10 ^3/uL Eosinophils # (Auto) 0.1 0.1 0-0.8 10 ^3/uL Basophils # (Auto) 0 0 0-0.2 10 ^3/uL Nucleated Red Blood Cells 0.9 1.0 % Sodium Level 131 L 136-145 mmol/L Potassium Level 5.2 H 3.5-5.1 mmol/L Chloride Level 95 L 98-107 mmol/L Carbon Dioxide Level 25 20-31 mmol/L Anion Gap 11 5-15 Blood Urea Nitrogen 52 H 9-23 mg/dL Creatinine 5.75 H 0.700-1.30 mg/dL Glomerular Filtration Rate Calc 11 >90 mL/min BUN/Creatinine Ratio 9.0 L 10.0-20.0 Serum Glucose 39 *L 74-106 mg/dL Calcium Level 10.3 8.7-10.4 mg/dL Total Bilirubin 42.5 H 0.2-1.0 mg/dL Aspartate Amino Transferase (AST) 110 H 13-40 U/L Alanine Aminotransferase (ALT) 272 H 7-40 U/L Alkaline Phosphatase 130 H 46-116 U/L Total Protein 6.7 5.7-8.2 g/dL Albumin 2.8 L 3.2-4.8 g/dL Platelet Estimate Decreased Poikilocytosis (manual) Slight Anisocytosis (manual) Slight Macrocytosis Moderate [place] Cells Few B-Type Natriuretic Peptide > 5000.00 0-100 pg/mL Test 04/16/24 14:14 Range/Units Prothrombin Time 20.0 H 9.3-11.8 sec Prothrombin Time INR 1.99 H 0.9-1.15 Activated Partial Thromboplast Time 60.9 H 24.5-34.5 SEC Sodium Level 129 L 136-145 mmol/L Potassium Level 4.9 3.5-5.1 mmol/L Chloride Level 95 L 98-107 mmol/L Carbon Dioxide Level 25 20-31 mmol/L Anion Gap 9 5-15 Blood Urea Nitrogen 43 H 9-23 mg/dL Creatinine 5.17 H 0.700-1.30 mg/dL Glomerular Filtration Rate Calc 12 >90 mL/min BUN/Creatinine Ratio 8.3 L 10.0-20.0 Serum Glucose 74 74-106 mg/dL Lactic Acid Level 1.3 0.4-2.0 mmol/L Calcium Level 10.2 8.7-10.4 mg/dL Total Bilirubin 42.8 H 0.2-1.0 mg/dL Aspartate Amino Transferase (AST) 116 H 13-40 U/L Alanine Aminotransferase (ALT) 291 H 7-40 U/L Alkaline Phosphatase 121 H 46-116 U/L Ammonia 21 11-32 umol/L Troponin I High Sensitivity 30 </=54 ng/L Total Protein 6.7 5.7-8.2 g/dL Albumin 2.8 L 3.2-4.8 g/dL Assessment Assessment: ESRD on HD Acute on chronic systolic CHF Severe Mitral regurgitation Severe Tricuspid regurgitation h/o HTN, currently blood pressure is borderline low COPD Severe hyperbilirubinemia transaminitis Hyperkalemia Anemia of CKD Plan: HD today fluid restriction GI consult [facility] post HD as needed. goal Hb: 10-11 g/dl poor prognosis Plan discussed with: Patient NICOLA CUBA MD Apr 17, 2024 15:59
--- NOTE | 2024-04-17 16:54 | DVH ---
Exam: CT CT AB PEL WO CON-NO ORAL OR IV History: Severe jaundice bilirubin 42 Comparison Study: None Technique: Multidetector spiral CT of the abdomen and pelvis was performed from lung bases to pubic symphysis. Imaging was performed without IV contrast. Axial, coronal and sagittal multiplanar reform ats were obtained from the axial data set by the technologist. Radiation dose : Abdomen/Pelvis: CTDIvol 9.16 mGy, DLP 543.82 mGy*cm. Findings: Evaluation of solid organs is limited due to lack of intravenous contrast use. Lung Bases: Bilateral pleural effusions with associated bibasilar atelectasis and consolidation. Mode rate to severe cardiomegaly. Liver: The liver is normal in size. No focal lesions. Gallbladder and biliary Tree: Sludge and stones in the gallbladder Spleen: Unremarkable Pancreas: The pancreas is grossly normal in appearance. Adrenal Glands: Unremarkable Kidneys: Kidneys are grossly normal without calculi or hydronephrosis. Bladder: Grossly unremarkable for degree of distention. Bowel: The stomach is grossly normal in appearance. Small bowel and colon are normal in caliber and d istribution. The appendix is not visualized; however, no secondary findings of acute appendicitis id entified. Ascites: Large amount of ascities Lymphadenopathy: No mesenteric, retroperitoneal or periportal lymphadenopathy. Abdominal wall and Mesentery: Unremarkable. Vasculature: The visualized abdominal aorta is normal in size and caliber. There is of the aorta an d its branches. Evaluation of abdominal and pelvic vessels is limited due to lack of intravenous cont rast. Pelvic Organs: Unremarkable Musculoskeletal: No aggressive focal bony lesions, acute fractures or dislocation. IMPRESSION: 1. Very limited exam without intravenous contrast and with arms overlying the abdomen and pelvis. Lar ge amount of abdominal ascities. Sludge and stones in the gallbladder. Moderate to severe cardiomegal y. Bilateral pleural effusions. If concern persists consider further evaluation with CT or MRI of the abdomen with contrast. Radiation optimization: All CT scans at this facility use at least one of these dose optimization ralph hniques: Automated exposure control mA and/or kV adjustment per patient size (includes targeted exams where dose is matched to clinical indication) or iterative reconstruction. HS:Y
--- NOTE | 2024-04-17 17:41 | DVH ---
Procedure: US LIVER 04/17/2024 03:11 PM Indication: Severe jaundice. Comparison: None Technique: Grayscale and color images of the right upper quadrant were obtained. FINDINGS: ASCITES: .Moderate amount of ascites noted LIVER: Liver measures 13.1 cm craniocaudal. Coarse hepatic echotexture and nodularity of liver contou r. No focal lesion is identified. No intrahepatic ductal dilatation. Normal directional flow is seen in the portal vein. GALLBLADDER: Cholelithiasis. Diffuse gallbladder wall thickening likely secondary to ascites and und erlying hepatocellular disease. Sonographic Enriquez's sign is negative. COMMON BILE DUCT: Not visualized. PANCREAS: Visualized portions are unremarkable.ons are unremarkable. RIGHT KIDNEY: Poorly visualized. AORTA, IVC: Visualized portions are unremarkable. OTHER: None. IMPRESSION: 1. Cirrhosis and moderate amount of ascites in all 4 abdominal quadrants. Normal directional flow is seen in portal vein. 2. Cholelithiasis and diffuse gallbladder wall thickening with negative sonographic enriquez's sign lik paco likely secondary to underlying diffuse hepatocellular disease / cirrhosis.
[2024-04-17 18:17] VITALS: O2SAT 100
--- NOTE | 2024-04-17 19:07 | DVHINCON2 ---
Date of service: Apr 17, 2024 Referring Physician Gm Huang Reason for Consultation Elevated liver enzymes History of Present Illness 58 Y/O M with history of ESRD on HD, systolic CHF, s/p AICD severe TR, severe MR, HTN, and COPD presented with AMS. Patient was initially was [facility] and was transferred for further management. Family had noticed severe Jaundice. Labs significant for bilirubin of 42, INR: 1.99. latest K is 5.2 mmol/l. AST: 110, ALT: 272. Patients blood pressure has been borderline low in 100s systolic. GI was consulted for evaluation and management of jaundice and elevated liver enzymes Past Medical History CHF, COPD, HTN, ESRD on hemodialysis Past Surgical History Past Surgical History Dialysis access Family History: Patient reports no known family medical history. Allergies: Coded Allergies: Furosemide (Verified Allergy, Unknown, 02/28/23) Home Meds Reported Medications Apixaban Base (ELIQUIS) 5 Mg Tab, 1 TAB PO BID for ARRYTHMIA 07/07/23 Megestrol Acetate (Megestrol Acetate) 40 Mg Tab, 1 TAB PO BID for LOSS OF APPETITE 07/07/23 Empagliflozin (Jardiance) 10 Mg Tab, 1 TAB PO DAILY for DIABETES 07/05/23 Ivabradine Hydrochloride (Corlanor) 5 Mg Tab, 1 TAB PO BID for HEART FAILURE 07/05/23 Duloxetine HCl (Duloxetine HCl) 60 Mg Cap, 1 CAP PO BID for DEPRESSION 05/05/23 Carvedilol (Carvedilol) 25 Mg Tab, 1 TAB PO BID for HYPERTENSION 04/06/23 Bumetanide (Bumetanide) 2 Mg Tab, 1 TAB PO DAILY for EDEMA 04/06/23 Atorvastatin Calcium (ATORVASTATIN CALCIUM) 40 Mg Tab, 1 TAB PO DAILY for HIGH CHOLESTEROL 04/06/23 Isosorbide Dinitrate (Isosorbide Dinitrate) 20 Mg Tab, 1 TAB PO BID for ANGINA 04/06/23 Current Medications Current Medications Medications (Trade) Dose Ordered Sig/Izabela Route PRN Reason Start Time Stop Time Status Last Admin Carvedilol (Coreg Tablet) 3.125 mg Q12HR PO 04/16/24 22:00 04/16/24 21:31 Atorvastatin Calcium (Lipitor) 20 mg HS PO 04/16/24 22:00 Hold Aspirin 81 mg DAILY PO 04/17/24 10:00 Sodium Chloride (Saline Lock Ns) 10 ml Q8HR IV 04/16/24 22:00 04/17/24 14:06 Nitroglycerin (Ntrostat Sublingual) 0.4 mg Q5MINP PRN SL FOR CHEST PAIN 04/16/24 20:00 Morphine Sulfate 2 mg Q30M PRN IV FOR CHEST PAIN 04/16/24 20:00 Melatonin (Melatonin) 5 mg HS PO 04/16/24 22:00 04/16/24 21:31 Sodium Chloride 1,000 ml @ 60 mls/hr [id number] IV 04/17/24 15:00 04/17/24 15:06 Vital Signs Vital Signs Date Time Temp Pulse Resp B/P (MAP) Pulse Ox O2 Delivery O2 Flow Rate FiO2 04/17/24 18:00 60 14 97/69 (78) 98 04/17/24 12:00 98.7 98.7 04/17/24 07:38 Nasal Cannula* 3 32 Physical Exam Gen: NAD; elderly frail male HEENT: NC, AT Lungs: Crackles lung bases Cardiac: RRR, + systolic murmur Abd: soft Ext: no edema Skin: + Jaundice Labs/Diagnostic Data Labs Test 04/17/24 09:05 04/17/24 03:31 04/16/24 18:13 04/16/24 14:14 Range/Units POC Glucose 75 70-106 mg/dl White Blood Count 5.0 4.4-10.8 10^3/uL Red Blood Count 2.81 L 4.5-5.90 10^6/uL Hemoglobin 10.0 L 13.5-17.5 g/dL Hematocrit 31.1 #L 41.0-53.0 % Mean Corpuscular Volume 110.6 #H 80.0-100.0 fL Mean Corpuscular Hemoglobin 35.7 H 28.0-32.0 pg Mean Corpuscular Hemoglobin Concent 32.3 32.0-36.0 g/dL Red Cell Distribution Width 18.4 H 11.8-14.3 % Platelet Count 35 L 140-450 10^3/uL Mean Platelet Volume 11.5 H 6.9-10.8 fL Neutrophils (%) (Auto) 69.6 37.0-80.0 % Lymphocytes (%) (Auto) 13.3 10.0-50.0 % Monocytes (%) (Auto) 14.8 H 0.0-12.0 % Eosinophils (%) (Auto) 1.8 0.0-7.0 % Basophils (%) (Auto) 0.5 0.0-2.0 % Neutrophils # (Auto) 3.5 1.6-8.6 10 ^3/uL Lymphocytes # (Auto) 0.7 0.4-5.4 10 ^3/uL Monocytes # (Auto) 0.7 0-1.3 10 ^3/uL Eosinophils # (Auto) 0.1 0-0.8 10 ^3/uL Basophils # (Auto) 0 0-0.2 10 ^3/uL Nucleated Red Blood Cells 0.9 % Sodium Level 131 L 136-145 mmol/L Potassium Level 5.2 H 3.5-5.1 mmol/L Chloride Level 95 L 98-107 mmol/L Carbon Dioxide Level 25 20-31 mmol/L Anion Gap 11 5-15 Blood Urea Nitrogen 52 H 9-23 mg/dL Creatinine 5.75 H 0.700-1.30 mg/dL Glomerular Filtration Rate Calc 11 >90 mL/min BUN/Creatinine Ratio 9.0 L 10.0-20.0 Serum Glucose 39 *L 74-106 mg/dL Calcium Level 10.3 8.7-10.4 mg/dL Total Bilirubin 42.5 H 0.2-1.0 mg/dL Aspartate Amino Transferase (AST) 110 H 13-40 U/L Alanine Aminotransferase (ALT) 272 H 7-40 U/L Alkaline Phosphatase 130 H 46-116 U/L Total Protein 6.7 5.7-8.2 g/dL Albumin 2.8 L 3.2-4.8 g/dL Platelet Estimate Decreased Poikilocytosis (manual) Slight Anisocytosis (manual) Slight Macrocytosis Moderate [place] Cells Few B-Type Natriuretic Peptide > 5000.00 0-100 pg/mL Prothrombin Time 20.0 H 9.3-11.8 sec Prothrombin Time INR 1.99 H 0.9-1.15 Activated Partial Thromboplast Time 60.9 H 24.5-34.5 SEC Lactic Acid Level 1.3 0.4-2.0 mmol/L Ammonia 21 11-32 umol/L Troponin I High Sensitivity 30 </=54 ng/L Microbiology Date/Time Source Procedure Growth Status 04/16/24 14:14 Blood Blood Culture - Preliminary NO GROWTH AFTER 24 HOURS OF INCU[address]ATION. Resulted CT SCAN ABD PELVIS MPRESSION: 1. Very limited exam without intravenous contrast and with arms overlying the abdomen and pelvis. Large amount of abdominal ascities. Sludge and stones in the gallbladder. Moderate to severe cardiomegaly. Bilateral pleural effusions. If concern persists consider further evaluation with CT or MRI of the abdomen with contrast. RUQ USG IMPRESSION: 1. Cirrhosis and moderate amount of ascites in all 4 abdominal quadrants. Normal directional flow is seen in portal vein. 2. Cholelithiasis and diffuse gallbladder wall thickening with negative sonographic briscoe's sign likely likely secondary to underlying diffuse hepatocellular disease / cirrhosis. Problems(with codes): (1) Generalized weakness (2) Pancytopenia (3) Cardiomegaly (4) Elevated liver enzymes (5) End-stage renal disease on hemodialysis (6) Acute exacerbation of congestive heart failure (7) Anemia of chronic disease (8) Metabolic encephalopathy (9) Ascites (10) Cirrhosis of liver Plan/Recommendation Assessment and plan Patient appears to have acute liver failure with cholestasis coagulopathy thrombocytopenia hypoglycemia There was underlying cirrhosis with ascites possibly cardiac in origin, MELD score is high suggestive of poor prognosis Check acute and chronic hepatitis panel, KELLIE, serum ferritin , serum haptoglobin rule out hemolysis , serum alpha fetoprotein Patient also has gallstones were gallbladder sludge, we will get MRCP Arrange paracentesis image guided Continue dialysis as per schedule Liver enzymes are trending down ; monitor daily labs Add Actigall 300 mg p.o. twice a day I will follow up patient closely Plan discussed with: Patient LEIGH MARTINEZ MD Apr 17, 2024 19:07
[2024-04-17 19:33] VITALS: PULSE 63; RESP 11; O2SAT 99
[2024-04-17] MEDS: phytonadione 10 MG in SODIUM CHL 0.9% 50 ML IV ONE (21:03)
[2024-04-18] VITALS (11 sets, daily range): BP systolic 101–125; BP diastolic 60–84; PULSE 55–67; RESP 15–18; TEMP 96.5–97.9; O2SAT 96–100
--- NOTE | 2024-04-18 06:29 | DVHPN2 ---
Progress Note - Dictate Date Seen: Apr 18, 2024 Medical Necessity Reason Pt with a Central, PICC or Fol: Yes Subjective no new symptoms vital signs Vital Sign Date Time Temp Pulse Resp B/P (MAP) Pulse Ox O2 Delivery O2 Flow Rate FiO2 04/18/24 06:18 96 Nasal Cannula 2.0 04/18/24 06:18 28 04/18/24 05:00 96.5 61 16 107/75 (86) 96.5 Total Intake and Output 04/17/24 04/17/24 04/18/24 15:00 23:00 07:00 Intake Total 466 ml 680 ml Balance 466 ml 680 ml medications Current Medications Medications Dose Ordered Sig/Izabela Route Start Time Stop Time Status Last Admin Dose Admin Carvedilol 3.125 mg Q12HR PO 04/16/24 22:00 04/17/24 22:01 3.125 MG Atorvastatin Calcium 20 mg HS PO 04/16/24 22:00 Hold Albuterol 2.5 mg Q4HPRN PRN NEB 04/16/24 17:45 Aspirin 81 mg DAILY PO 04/17/24 10:00 Sodium Chloride 10 ml Q8HR IV 04/16/24 22:00 04/18/24 05:59 10 ML Acetaminophen/ Hydrocodone Bitart 1 tab Q4HP PRN PO 04/16/24 17:45 04/16/24 21:32 1 TAB Ondansetron HCl 4 mg Q4HP PRN IV 04/16/24 17:45 Docusate Sodium 100 mg BIDPRN PRN PO 04/16/24 17:45 Ibuprofen 600 mg Q6HP PRN PO 04/16/24 18:15 Hold Nitroglycerin 0.4 mg Q5MINP PRN SL 04/16/24 20:00 Morphine Sulfate 2 mg Q30M PRN IV 04/16/24 20:00 Melatonin 5 mg HS PO 04/16/24 22:00 04/16/24 21:31 5 MG Sodium Chloride 1,000 ml @ 60 mls/hr [id number] IV 04/17/24 15:00 04/17/24 15:06 60 MLS/HR objective Gen: NAD HEENT: NC, AT Lungs: Crackles lung bases Cardiac: RRR, + systolic murmur Abd: soft Ext: no edema Skin: + Jaundice laboratory and microbiology Laboratory Tests 04/17/24 03:31 Test 04/18/24 05:57 Range/Units Serum Glucose Pending Assessment/Plan Assessment: ESRD on HD Acute on chronic systolic CHF Severe Mitral regurgitation Severe Tricuspid regurgitation h/o HTN, currently blood pressure is borderline low Liver cirrhosis with ascites COPD Severe hyperbilirubinemia transaminitis Hyperkalemia Anemia of CKD Plan: s/p HD Tuesday Next HD on fluid restriction GI consult [facility] post HD as needed. goal Hb: 10-11 g/dl poor prognosis Plan discussed with: Other NICOLA CUBA MD Apr 18, 2024 06:29
[2024-04-18 06:52] LABS: Alkaline Phosphatase 118 U/L (46-116); Chloride 100 mmol/L (98-107); Potassium 3.8 mmol/L (3.5-5.1); Sodium 136 mmol/L (136-145)
[2024-04-18 06:53] LABS: INR 2.21 (0.9-1.15); Prothrombin Time 22.1 sec (9.3-11.8)
[2024-04-18 07:09] LABS: Alanine Aminotransferase 238 U/L (7-40); Anion Gap 8 (5-15); Aspartate Aminotransferase 106 U/L (13-40); BUN/Creatinine Ratio 6.4 (10.0-20.0); Bilirubin, Total 45.2 mg/dL (0.2-1.0); Calcium 9.8 mg/dL (8.7-10.4); Carbon Dioxide 28 mmol/L (20-31); Total Protein 6.5 g/dL (5.7-8.2)
[2024-04-18 07:12] LABS: Blood Urea Nitrogen 24 mg/dL (9-23)
[2024-04-18 07:14] LABS: Glucose 19 mg/dL (74-106)
[2024-04-18] MEDS: DEXTROSE (50%) 50ML SYRG IV PRN (07:25)
[2024-04-18] MEDS: InsuLIN REG 1unit/0.01ml Soln (100units/ml) SC SCH (08:00)
[2024-04-18] MEDS: DEXTROSE 50% SYRINGE 0 ML IV ONE (08:34)
[2024-04-18] MEDS: DEXTROSE 50% SYRINGE 50 ML IV ONE (08:38)
[2024-04-18] MEDS: D5W/SOD CHLO 0.9% 1,000 ML IV SCH (09:19)
[2024-04-18] MEDS: ACCU-CHEK COMFORT CURVE STRIP VI SCH (09:20)
--- NOTE | 2024-04-18 09:51 | DVHPN2 ---
Reviewed: Care Plan, H&P, Labs, Medications, Previous Orders, Radiology Changes from previous H/P or p: No Changes Eyes: No Pain, No Vision change, No Conjunctivae inflammation, No Eyelid inflammation, No Other, No Redness ENT: No Ear pain, No Ear discharge, No Nose pain, No Nose discharge, No Nose congestion, No Mouth pain, No Mouth swelling, No Throat pain, No Throat swelling, No Other Cardiovascular: No Chest Pain, No Palpitations, No Orthopnea, No Paroxysmal Noc. Dyspnea, No Edema, No Lt Headedness, No Other Respiratory: No Cough, No Dry, No Shortness of breath, No SOB with excertion, No Wheezing, No Hemoptysis, No Pleuritic Pain, No Sputum, No Other Gastrointestinal: No Nausea, No Vomiting, No Abdominal Pain, No Diarrhea, No Constipation, No Melena, No Hematochezia, No Other Genitourinary: Other Musculoskeletal: No other, No neck pain, No shoulder pain, No arm pain, No back pain, No hand pain, No leg pain, No foot pain Skin: Jaundice Objective Vitals Vital Signs Date Time Temp Pulse Resp B/P (MAP) Pulse Ox O2 Delivery O2 Flow Rate FiO2 04/18/24 06:18 96 Nasal Cannula 2.0 04/18/24 06:18 28 04/18/24 05:00 96.5 61 16 107/75 (86) 96.5 Intake/Output Intake and Output 04/18/24 07:00 Intake Total 1146 ml Balance 1146 ml Intake Oral 500 ml IV Total 646 ml # Voids 1 Medications Current Medications Medications Dose Ordered Sig/Izabela Route Start Time Stop Time Status Last Admin Dose Admin Carvedilol 3.125 mg Q12HR PO 04/16/24 22:00 04/17/24 22:01 3.125 MG Atorvastatin Calcium 20 mg HS PO 04/16/24 22:00 Hold Albuterol 2.5 mg Q4HPRN PRN NEB 04/16/24 17:45 Aspirin 81 mg DAILY PO 04/17/24 10:00 Sodium Chloride 10 ml Q8HR IV 04/16/24 22:00 04/18/24 05:59 10 ML Acetaminophen/ Hydrocodone Bitart 1 tab Q4HP PRN PO 04/16/24 17:45 04/16/24 21:32 1 TAB Ondansetron HCl 4 mg Q4HP PRN IV 04/16/24 17:45 Docusate Sodium 100 mg BIDPRN PRN PO 04/16/24 17:45 Ibuprofen 600 mg Q6HP PRN PO 04/16/24 18:15 Hold Nitroglycerin 0.4 mg Q5MINP PRN SL 04/16/24 20:00 Morphine Sulfate 2 mg Q30M PRN IV 04/16/24 20:00 Melatonin 5 mg HS PO 04/16/24 22:00 04/16/24 21:31 5 MG Sodium Chloride 1,000 ml @ 60 mls/hr [id number] IV 04/17/24 15:00 04/17/24 15:06 60 MLS/HR Dextrose/Sodium Chloride 1,000 ml @ 75 mls/hr [id number] IV 04/18/24 07:45 04/18/24 09:19 75 MLS/HR Diagnostic Test (Pha) 1 strip IQ4HR 04/18/24 08:00 04/18/24 09:20 1 STRIP Dextrose 50 ml UD PRN IV 04/18/24 07:45 Insulin Human Regular IQ4HR SC 04/18/24 08:00 Laboratory Results Laboratory Tests 04/17/24 03:31 04/18/24 05:57 Chemistry Test 04/18/24 05:57 Albumin 3.0 g/dL (3.2-4.8) L Calcium Level 9.8 mg/dL (8.7-10.4) Total Protein 6.5 g/dL (5.7-8.2) Coagulation Test 04/18/24 05:57 Prothrombin Time 22.1 sec (9.3-11.8) H Prothrombin Time INR 2.21 (0.9-1.15) H LFT Test 04/18/24 05:57 Alanine Aminotransferase (ALT) 238 U/L (7-40) H Alkaline Phosphatase 118 U/L (46-116) H Aspartate Amino Transferase (AST) 106 U/L (13-40) H Total Bilirubin 45.2 mg/dL (0.2-1.0) H Microbiology Microbiology Date/Time Source Procedure Growth Status 04/16/24 14:14 Blood Blood Culture - Preliminary Resulted Labs and/or images reviewed: Labs reviewed by me, Image(s) reviewed by me Assessment/Plan Assessment/Plan Acute metabolic encephalopathy Severe jaundice with bilirubin 42 and elevated liver function tests: CT abdomen pelvis without contrast, liver ultrasound, hepatitis panel, GI consult by Dr. Karina Enamorado ESRD on Hemodialysis nephrology consult for Dr. Bueno Acute on chronic CHF exacerbation Acute COPD exacerbation Hypertension Acute hyponatremia sodium 129 Cardiomegaly Severe malnutrition Time spent 65 minutes Patient is full code Advanced care planning time 20 minutes Plan discussed with: Patient My Orders Orders - BERTA SANDOVAL MD Procedure Category Date Status Time * Gi Dvh Price Checker CONS 04/17/24 Transmitted 13:05 Acute Hepatitis Panel LAB 04/17/24 In Process 13:06 Ct Ab Pel Wo Con-No CT 04/17/24 Resulted Oral Or Iv 13:07 LIVER US 04/17/24 Resulted 13:07 BERTA SANDOVAL MD Apr 18, 2024 09:51
--- NOTE | 2024-04-18 10:18 | DVHPN2 ---
Reviewed: Care Plan, H&P, Labs, Medications, Previous Orders, Radiology Changes from previous H/P or p: No Changes Eyes: No Pain, No Vision change, No Conjunctivae inflammation, No Eyelid inflammation, No Other, No Redness ENT: No Ear pain, No Ear discharge, No Nose pain, No Nose discharge, No Nose congestion, No Mouth pain, No Mouth swelling, No Throat pain, No Throat swelling, No Other Cardiovascular: No Chest Pain, No Palpitations, No Orthopnea, No Paroxysmal Noc. Dyspnea, No Edema, No Lt Headedness, No Other Respiratory: No Cough, No Dry, No Shortness of breath, No SOB with excertion, No Wheezing, No Hemoptysis, No Pleuritic Pain, No Sputum, No Other Gastrointestinal: No Nausea, No Vomiting, No Abdominal Pain, No Diarrhea, No Constipation, No Melena, No Hematochezia, No Other Genitourinary: Other Musculoskeletal: No other, No neck pain, No shoulder pain, No arm pain, No back pain, No hand pain, No leg pain, No foot pain Skin: Jaundice Objective Vitals Vital Signs Date Time Temp Pulse Resp B/P (MAP) Pulse Ox O2 Delivery O2 Flow Rate FiO2 04/18/24 06:18 96 Nasal Cannula 2.0 04/18/24 06:18 28 04/18/24 05:00 96.5 61 16 107/75 (86) 96.5 Intake/Output Intake and Output 04/18/24 07:00 Intake Total 1146 ml Balance 1146 ml Intake Oral 500 ml IV Total 646 ml # Voids 1 Medications Current Medications Medications Dose Ordered Sig/Izabela Route Start Time Stop Time Status Last Admin Dose Admin Carvedilol 3.125 mg Q12HR PO 04/16/24 22:00 04/17/24 22:01 3.125 MG Atorvastatin Calcium 20 mg HS PO 04/16/24 22:00 Hold Albuterol 2.5 mg Q4HPRN PRN NEB 04/16/24 17:45 Aspirin 81 mg DAILY PO 04/17/24 10:00 Sodium Chloride 10 ml Q8HR IV 04/16/24 22:00 04/18/24 05:59 10 ML Acetaminophen/ Hydrocodone Bitart 1 tab Q4HP PRN PO 04/16/24 17:45 04/16/24 21:32 1 TAB Ondansetron HCl 4 mg Q4HP PRN IV 04/16/24 17:45 Docusate Sodium 100 mg BIDPRN PRN PO 04/16/24 17:45 Ibuprofen 600 mg Q6HP PRN PO 04/16/24 18:15 Hold Nitroglycerin 0.4 mg Q5MINP PRN SL 04/16/24 20:00 Morphine Sulfate 2 mg Q30M PRN IV 04/16/24 20:00 Melatonin 5 mg HS PO 04/16/24 22:00 04/16/24 21:31 5 MG Sodium Chloride 1,000 ml @ 60 mls/hr [id number] IV 04/17/24 15:00 04/17/24 15:06 60 MLS/HR Dextrose/Sodium Chloride 1,000 ml @ 75 mls/hr [id number] IV 04/18/24 07:45 04/18/24 09:19 75 MLS/HR Diagnostic Test (Pha) 1 strip IQ4HR 04/18/24 08:00 04/18/24 09:20 1 STRIP Dextrose 50 ml UD PRN IV 04/18/24 07:45 Insulin Human Regular IQ4HR SC 04/18/24 08:00 Laboratory Results Laboratory Tests 04/17/24 03:31 04/18/24 05:57 Chemistry Test 04/18/24 05:57 Albumin 3.0 g/dL (3.2-4.8) L Calcium Level 9.8 mg/dL (8.7-10.4) Total Protein 6.5 g/dL (5.7-8.2) Coagulation Test 04/18/24 05:57 Prothrombin Time 22.1 sec (9.3-11.8) H Prothrombin Time INR 2.21 (0.9-1.15) H LFT Test 04/18/24 05:57 Alanine Aminotransferase (ALT) 238 U/L (7-40) H Alkaline Phosphatase 118 U/L (46-116) H Aspartate Amino Transferase (AST) 106 U/L (13-40) H Total Bilirubin 45.2 mg/dL (0.2-1.0) H Microbiology Microbiology Date/Time Source Procedure Growth Status 04/16/24 14:14 Blood Blood Culture - Preliminary Resulted Labs and/or images reviewed: Labs reviewed by me, Image(s) reviewed by me Assessment/Plan Assessment/Plan Acute metabolic encephalopathy Pancytopenia Cardiomegaly Severe jaundice with bilirubin 42 and elevated liver function tests: CT abdomen pelvis without contrast, liver ultrasound, hepatitis panel, GI consult by Dr. Karina Enamorado Ascites Cirrhosis of liver Coagulopathy: Vitamin K 10 mg IV daily for three days ESRD on Hemodialysis nephrology consult for Dr. 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 Rouse who discussed with the family and advised hospice evaluation Time spent 65 minutes Patient is full code Advanced care planning time 20 minutes Prognosis very poor Social service consult placed for hospice evaluation Discussed with the patient's girlfriend Hari [phone] on the phone and she is refusing to place the patient on hospice Plan discussed with: Patient My Orders Orders - BERTA SANDOVAL MD Procedure Category Date Status Time * Gi Dvh Public Records Researcher CONS 04/17/24 Transmitted 13:05 Acute Hepatitis Panel LAB 04/17/24 In Process 13:06 Ct Ab Pel Wo Con-No CT 04/17/24 Resulted Oral Or Iv 13:07 LIVER US 04/17/24 Resulted 13:07 Phytonadione (Vitamin PHA 04/18/24 Logged K) 10:00 Date of Service: Apr 18, 2024 Billing Provider: BERTA SANDOVAL MD Common Visit Codes: [id number] CARE 30-74 MIN BERTA SANDOVAL MD Apr 18, 2024 10:17
[2024-04-18] MEDS ORDERED: CARV3.1240 PO (10:53)
--- NOTE | 2024-04-18 11:00 | RESUS ---
CODE ASSIST ASSESSSMENT Initial Information Code Assist Date: Apr 18, 2024 Code Assist Time: 07:26 Location of Arrest: [facility] Room # 245A Provider Name CELESTE Time Notified: 07:33 Time PMD returned call: 07:34 Crash Cart Opened and Supplies: No Situation Staff concerned/worried, speci: Non-responsive Situation comment: CRITICLE LAB VALUE CALLED BY ONLINE ACTIVIST REPORTING HYPOGLYCEMIA UPON ASSESSING PATIENT, PRIMARY RN NOTED PATIENT TO BE UNRESPONSIVE TO VERBAL/ PAINFUL STIMULI. CODE ASSIST CALLED ACCU CHECK READINGS OF 11 AND 12 REPEAT. PATIENT TREATED WITH 2 AMPS OF D50 AND BECAME RESPONSIVE AND COHERENT WITH ACCU CHECK 365. Background Background: PATIENT ADMITTED TO TELE FROM ER FOR ALOC, NOTED HYPOGLYCEMIA EVENTS IN ER WITH IV DEXTROSE INTERVENTION. PATIENT HX INCLUDES TYPE 1 DIABETES Assessment Temperature (Fahrenheit): 97.1 Blood Pressure Systolic: 123 Blood Pressure Diastolic: 84 Respiratory Rate: 14 O2 Sat by Pulse Oximetry: 98 Bedside Blood Glucose: 12 Assessment comment: 1ST BEDSIDE GLUCOSE 12 RECHECK 11 Recommendations/Interventions Medications and Responses #1: Medication Time: 07:28 ADULT Medications Given: D50 1 amp IV Route of Administration: IV Heart Rate: 70 Medications and Responses #2: Medication Time: 07:29 ADULT Medications Given: D50 1 amp IV Route of Administration: IV Comment RECHECK AFTER 2AMP OF DEXTROSE 365 Procedures: Accu check Outcome Outcome: Problem Resolved Follow up Report Follow up Report DR ALONSO CONTACTED AND MADE AWARE OF CURRENT PATIENT STATUS AND CODE ASSIST ISSUE TELEPHONE ORDERS RECEIVED FOR D5 NS 75ML/HR IV, DC CURRENT NS ORDERS MILD INSULIN SLIDING SCALE WITH Q 4 ACCUCHECK Team Members Team Members NATI SUMMER ICU CHEMICAL MIXER BECCA ENTERTAINMENT MANAGER NASIR TOOL AND DIE ENGINEER LIZ CHEMICAL MIXER CHAD CHEMICAL MIXERAnnamarie Jordan RN, RN Apr 18, 2024 11:00
[2024-04-18] MEDS: cefTRIAXone 1GM/50ML D5W 50 ML IV ONE (12:07)
[2024-04-18] MEDS: phytonadione 10 MG in SODIUM CHL 0.9% 50 ML IV ONE (13:00)
--- NOTE | 2024-04-18 13:30 | DVHPN2 ---
Progress Note - Dictate Date Seen: Apr 18, 2024 Medical Necessity Reason Pt with a Central, PICC or Fol: Yes Subjective PT ADMITTED TO [facility] WITH METABOLIC ENCEPHALOPATHY FAMILY TOOK PT OUT OF [facility] AND BROUGHT HIM HERE TO [facility] BECAUSE THEY WANTED MY OPINION PT WITH METABOLIC ENCEPHALOPATHY ESRD ON HD ORG HD NORMAL CORONARIES EF <10% SEVERE TR SEVERE MR SEVERE PAH SECONDARY TO LEFT HEART FAILURE S/P BiV AICD HTN ELEVATED LIVER ENZYMES SECONDARY TO CHF LEFT HF CONTRIBUTING TO LIVER FAILRE PTs PROGNOSIS POOR DISCUSSED WITH PATTY ABOUT HOSPICE SERVICE vital signs Vital Sign Date Time Temp Pulse Resp B/P (MAP) Pulse Ox O2 Delivery O2 Flow Rate FiO2 04/18/24 12:55 60 97/71 04/18/24 11:00 206.8 14 98 04/18/24 06:18 Nasal Cannula 2.0 04/18/24 06:18 28 Total Intake and Output 04/17/24 04/17/24 04/18/24 15:00 23:00 07:00 Intake Total 466 ml 680 ml Balance 466 ml 680 ml medications Current Medications Medications Dose Ordered Sig/Izabela Route Start Time Stop Time Status Last Admin Dose Admin Carvedilol 3.125 mg Q12HR PO 04/16/24 22:00 04/18/24 11:55 3.125 MG Atorvastatin Calcium 20 mg HS PO 04/16/24 22:00 Hold Albuterol 2.5 mg Q4HPRN PRN NEB 04/16/24 17:45 Aspirin 81 mg DAILY PO 04/17/24 10:00 Sodium Chloride 10 ml Q8HR IV 04/16/24 22:00 04/18/24 05:59 10 ML Acetaminophen/ Hydrocodone Bitart 1 tab Q4HP PRN PO 04/16/24 17:45 04/16/24 21:32 1 TAB Ondansetron HCl 4 mg Q4HP PRN IV 04/16/24 17:45 Docusate Sodium 100 mg BIDPRN PRN PO 04/16/24 17:45 Ibuprofen 600 mg Q6HP PRN PO 04/16/24 18:15 Hold Nitroglycerin 0.4 mg Q5MINP PRN SL 04/16/24 20:00 Morphine Sulfate 2 mg Q30M PRN IV 04/16/24 20:00 Melatonin 5 mg HS PO 04/16/24 22:00 04/16/24 21:31 5 MG Dextrose/Sodium Chloride 1,000 ml @ 75 mls/hr [id number] IV 04/18/24 07:45 04/18/24 09:19 75 MLS/HR Diagnostic Test (Pha) 1 strip IQ4HR 04/18/24 08:00 04/18/24 12:07 1 STRIP Dextrose 50 ml UD PRN IV 04/18/24 07:45 04/18/24 07:30 50 ML Insulin Human Regular IQ4HR SC 04/18/24 08:00 Ceftriaxone Sodium 50 ml @ 100 mls/hr DAILY@09 IV 04/19/24 09:00 laboratory and microbiology Laboratory Tests 04/18/24 05:57 04/17/24 03:31 Test 04/18/24 05:57 Range/Units Serum Glucose 19 *L 74-106 mg/dL Problem List PT ADMITTED TO [facility] WITH METABOLIC ENCEPHALOPATHY FAMILY TOOK PT OUT OF [facility] AND BROUGHT HIM HERE TO [facility] BECAUSE THEY WANTED MY OPINION PT WITH METABOLIC ENCEPHALOPATHY ESRD ON HD ORG HD NORMAL CORONARIES EF <10% SEVERE TR SEVERE MR SEVERE PAH SECONDARY TO LEFT HEART FAILURE S/P BiV AICD HTN ELEVATED LIVER ENZYMES SECONDARY TO CHF LEFT HF CONTRIBUTING TO LIVER FAILRE PTs PROGNOSIS POOR DISCUSSED WITH PATTY ABOUT HOSPICE SERVICE ANEMIA HYPERKALEMIA Assessment/Plan CONSERVATIVE MANAGEMENT HOSPICE CONSULT HYPOGLYCEMIA D50 BOLUS SLIDING SCALE IV FLUID Dietary Evaluation Review Comments: Encourage PO feedings when pt is alert. Monitor intake to meet 75% of his needs. consider TF or TPN if pt is not able to take in food>7 days. Expected Outcomes/Goals: gradual weight gain. Plan discussed with: Patient CELESTE MOCTEZUMA MD Apr 18, 2024 13:30
--- NOTE | 2024-04-18 14:02 | DVHPN2 ---
Progress Note - Dictate Date Seen: Apr 18, 2024 Medical Necessity Reason Pt with a Central, PICC or Fol: Yes Subjective Patient seen at bedside Lethargic but arousable; patient had cold assist this morning Patient has severe hypoglycemia this morning requiring two amps of D50 Patient has been started on D5 normal saline drip at 1:25 a.m. per hour Patient is receiving vitamin K vital signs Vital Sign Date Time Temp Pulse Resp B/P (MAP) Pulse Ox O2 Delivery O2 Flow Rate FiO2 04/18/24 13:00 55 17 125/77 (93) 100 04/18/24 11:00 206.8 04/18/24 06:18 Nasal Cannula 2.0 04/18/24 06:18 28 Total Intake and Output 04/17/24 04/17/24 04/18/24 15:00 23:00 07:00 Intake Total 466 ml 680 ml Balance 466 ml 680 ml medications Current Medications Medications Dose Ordered Sig/Izabela Route Start Time Stop Time Status Last Admin Dose Admin Carvedilol 3.125 mg Q12HR PO 04/16/24 22:00 04/18/24 11:55 3.125 MG Atorvastatin Calcium 20 mg HS PO 04/16/24 22:00 Hold Albuterol 2.5 mg Q4HPRN PRN NEB 04/16/24 17:45 Aspirin 81 mg DAILY PO 04/17/24 10:00 Sodium Chloride 10 ml Q8HR IV 04/16/24 22:00 04/18/24 05:59 10 ML Acetaminophen/ Hydrocodone Bitart 1 tab Q4HP PRN PO 04/16/24 17:45 04/16/24 21:32 1 TAB Ondansetron HCl 4 mg Q4HP PRN IV 04/16/24 17:45 Docusate Sodium 100 mg BIDPRN PRN PO 04/16/24 17:45 Ibuprofen 600 mg Q6HP PRN PO 04/16/24 18:15 Hold Nitroglycerin 0.4 mg Q5MINP PRN SL 04/16/24 20:00 Morphine Sulfate 2 mg Q30M PRN IV 04/16/24 20:00 Melatonin 5 mg HS PO 04/16/24 22:00 04/16/24 21:31 5 MG Dextrose/Sodium Chloride 1,000 ml @ 75 mls/hr [id number] IV 04/18/24 07:45 04/18/24 09:19 75 MLS/HR Diagnostic Test (Pha) 1 strip IQ4HR 04/18/24 08:00 04/18/24 12:07 1 STRIP Dextrose 50 ml UD PRN IV 04/18/24 07:45 04/18/24 07:30 50 ML Insulin Human Regular IQ4HR SC 04/18/24 08:00 Ceftriaxone Sodium 50 ml @ 100 mls/hr DAILY@09 IV 04/19/24 09:00 objective Gen: NAD HEENT: NC, AT Lungs: Crackles lung bases Cardiac: RRR, + systolic murmur Abd: soft; nontender mild distention due to ascites Ext: no edema Skin: + Jaundice laboratory and microbiology Laboratory Tests 04/18/24 05:57 04/17/24 03:31 Test 04/18/24 05:57 Range/Units Serum Glucose 19 *L 74-106 mg/dL Problems(with codes): (1) Hypoglycemia (2) Ascites (3) Cirrhosis of liver (4) Generalized weakness (5) Pancytopenia (6) Cardiomegaly (7) Elevated liver enzymes (8) End-stage renal disease on hemodialysis (9) Metabolic encephalopathy Prognosis Plan Overall this patient's prognosis is guarded His hypoglycemia episodes could be related to liver failure Continue D5 normal saline at 1:25 a.m. per hour Monitor blood sugars Patient appears to have underlying hemochromatosis with cirrhosis and very high levels of serum ferritin Actigall 300 mg p.o. twice a day to correct hyperbilirubinemia Patient appears to have acute liver failure with cholestasis coagulopathy thrombocytopenia hypoglycemia There was underlying cirrhosis with ascites possibly cardiac in origin, MELD score is high suggestive of poor prognosis Check acute and chronic hepatitis panel, KELLIE, serum ferritin , serum haptoglobin rule out hemolysis , serum alpha fetoprotein Patient also has gallstones were gallbladder sludge, we will get MRCP Arrange paracentesis image guided Continue dialysis as per schedule Liver enzymes are trending down ; monitor daily labs Add Actigall 300 mg p.o. twice a day I will follow up patient closely Dietary Evaluation Review Comments: Encourage PO feedings when pt is alert. Monitor intake to meet 75% of his needs. consider TF or TPN if pt is not able to take in food>7 days. Expected Outcomes/Goals: gradual weight gain. Plan discussed with: Patient, Other (Nurse) LEIGH MARTINEZ MD 6, 2024 14:02
--- NOTE | 2024-04-18 15:02 | CONS ---
Pharmacy Clinical Information: From Concurrent Heart Failure CQM, Leopoldo Torrez is a 58 year old male with PMH of COPD, severe TR, MR, CHF (LVEF 10%), HTN, PAH s/p AICD, ESRD on dialysis. His home medications for heart failure include empagliflozin, carvedilol, and bumetanide. His inpatient medications include carvedilol. ACEi/ARB/ARNi, and MRA are not recommended for patients on hemodialysis due to increased risk of hyperkalemia from renal insufficiency. Patient's potassium level has fluctuated K>5 during his hospital stay. SGLT2i are not recommended for patients on hemodialysis since it has not been studied. LESVIA BURNS PHARMACIST Apr 18, 2024 15:02
[2024-04-18] MEDS ORDERED: MULT-1018 PO (17:31)
[2024-04-18] MEDS ORDERED: NIFE10CA52 PO (17:31)
[2024-04-18] MEDS ORDERED: SACU1TAB PO (17:32)
[2024-04-18] MEDS ORDERED: OLAN2.5T38 PO (17:32)
[2024-04-19] VITALS (9 sets, daily range): BP systolic 94–115; BP diastolic 62–75; PULSE 62–74; RESP 18–95; TEMP 97.5–98.3; O2SAT 92–100
[2024-04-19] MEDS ORDERED: SODIUM CHL 0.9% 1000 ML BAG XX ONE (07:00)
[2024-04-19 08:06] LABS: AFP Serum Tumor Marker <1.8 ng/mL (0.0-8.4)
--- NOTE | 2024-04-19 08:50 | DVHPN2 ---
Progress Note - Dictate Date Seen: Apr 19, 2024 Medical Necessity Reason Pt with a Central, PICC or Fol: Yes Subjective Patient seen at bedside Awake and arousable Patient has no new complaints Patient has a sitter at the bedside Hypoglycemia has improved Patient received vitamin K No active GI bleeding was reported vital signs Vital Sign Date Time Temp Pulse Resp B/P (MAP) Pulse Ox O2 Delivery O2 Flow Rate FiO2 04/19/24 05:00 97.8 18 96/68 (77) 100 97.8 04/18/24 22:00 67 04/18/24 20:00 Nasal Cannula* 2 28 Total Intake and Output 04/18/24 04/18/24 04/19/24 14:59 22:59 06:59 Intake Total 170 ml 1100 ml Balance 170 ml 1100 ml medications Current Medications Medications Dose Ordered Sig/Izabela Route Start Time Stop Time Status Last Admin Dose Admin Carvedilol 3.125 mg Q12HR PO 04/16/24 22:00 04/18/24 11:55 3.125 MG Atorvastatin Calcium 20 mg HS PO 04/16/24 22:00 Hold Albuterol 2.5 mg Q4HPRN PRN NEB 04/16/24 17:45 Aspirin 81 mg DAILY PO 04/17/24 10:00 Sodium Chloride 10 ml Q8HR IV 04/16/24 22:00 04/19/24 06:02 10 ML Acetaminophen/ Hydrocodone Bitart 1 tab Q4HP PRN PO 04/16/24 17:45 04/16/24 21:32 1 TAB Ondansetron HCl 4 mg Q4HP PRN IV 04/16/24 17:45 Docusate Sodium 100 mg BIDPRN PRN PO 04/16/24 17:45 Ibuprofen 600 mg Q6HP PRN PO 04/16/24 18:15 Hold Nitroglycerin 0.4 mg Q5MINP PRN SL 04/16/24 20:00 Morphine Sulfate 2 mg Q30M PRN IV 04/16/24 20:00 Melatonin 5 mg HS PO 04/16/24 22:00 04/18/24 22:00 5 MG Dextrose/Sodium Chloride 1,000 ml @ 75 mls/hr [id number] IV 04/18/24 07:45 04/18/24 22:00 75 MLS/HR Diagnostic Test (Pha) 1 strip IQ4HR 04/18/24 08:00 04/19/24 07:57 1 STRIP Dextrose 50 ml UD PRN IV 04/18/24 07:45 04/18/24 07:30 50 ML Insulin Human Regular IQ4HR SC 04/18/24 08:00 Ceftriaxone Sodium 50 ml @ 100 mls/hr DAILY@09 IV 04/19/24 09:00 Bumetanide 2 mg DAILY PO 04/19/24 10:00 Sacubitril/ Valsartan 1 tab DAILY PO 04/19/24 10:00 Isosorbide Dinitrate 20 mg DAILY PO 04/19/24 10:00 Empaglifozin 25 mg DAILY PO 04/19/24 10:00 Olanzapine 2.5 mg DAILY PO 04/19/24 10:00 Nifedipine 20 mg DAILY PO 04/19/24 10:00 Multivitamins 1 tab DAILY PO 04/19/24 10:00 Cholecalciferol 500 unit DAILY PO 04/19/24 10:00 Megestrol Acetate 40 mg DAILY PO 04/19/24 10:00 objective Gen: NAD HEENT: NC, AT Lungs: Crackles lung bases Cardiac: RRR, + systolic murmur Abd: soft; nontender mild distention due to ascites Ext: no edema Skin: + Jaundice laboratory and microbiology Laboratory Tests 04/18/24 05:57 04/17/24 03:31 Test 04/18/24 05:57 Range/Units Serum Glucose 19 *L 74-106 mg/dL Problems(with codes): (1) Hypoglycemia (2) Cirrhosis of liver (3) Ascites (4) Generalized weakness (5) Pancytopenia (6) Cardiomegaly (7) Elevated liver enzymes (8) End-stage renal disease on hemodialysis Prognosis Plan Continue to monitor labs Start Actigall 300 mg p.o. twice a day, discussed with pharmacist Correct coagulopathy Paracentesis Supportive care Prognosis remains guarded I believe the patient may have underlying hemochromatosis based on elevated ferritin Hepatitis profile KELLIE pending Dietary Evaluation Review Comments: Encourage PO feedings when pt is alert. Monitor intake to meet 75% of his needs. consider TF or TPN if pt is not able to take in food>7 days. Expected Outcomes/Goals: gradual weight gain. Plan discussed with: Patient LEIGH MARTINEZ MD Apr 19, 2024 08:50
[2024-04-19] MEDS: MULTIPLE VITAMIN TAB PO SCH (08:53)
[2024-04-19] MEDS: SACUBITRIL-VALSARTAN 24mg/26mg TAB PO SCH (08:55)
[2024-04-19] MEDS: OLANZapine 5 MG TAB PO SCH (08:55)
[2024-04-19] MEDS: cefTRIAXone 1GM/50ML D5W 50 ML IV SCH (09:04)
[2024-04-19] MEDS: CHOLECALCIFEROL (VITD3) 1,000UNIT=25mCg TAB PO SCH (09:04)
[2024-04-19] MEDS: BUMETANIDE 1 MG TAB PO SCH (10:00)
[2024-04-19] MEDS: ISOSORBIDE DINITRATE 10 MG TAB PO SCH (10:00)
[2024-04-19] MEDS: URSODIOL 300 MG CAP PO SCH (10:00)
[2024-04-19] MEDS ORDERED: MEGESTROL ACETATE 20 MG TAB PO SCH (10:00)
[2024-04-19] MEDS: EMPAGLIFLOZIN 10 MG TAB PO SCH (10:00)
[2024-04-19] MEDS: NIFEdipine 10 MG CAP PO SCH (10:00)
--- NOTE | 2024-04-19 12:33 | DVHPN2 ---
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% SEVERE TR SEVERE MR SEVERE PAH SECONDARY TO LEFT HEART FAILURE S/P BiV AICD HTN ELEVATED LIVER ENZYMES SECONDARY TO CHF LEFT HF CONTRIBUTING TO LIVER FAILRE PTs PROGNOSIS POOR DISCUSSED WITH PATTY ABOUT HOSPICE SERVICE vital signs Vital Sign Date Time Temp Pulse Resp B/P (MAP) Pulse Ox O2 Delivery O2 Flow Rate FiO2 04/19/24 10:43 99 Nasal Cannula 3.0 04/19/24 10:43 32 04/19/24 05:00 97.8 18 96/68 (77) 97.8 04/18/24 22:00 67 Total Intake and Output 04/18/24 04/18/24 04/19/24 15:00 23:00 07:00 Intake Total 170 ml 1100 ml Balance 170 ml 1100 ml medications Current Medications Medications Dose Ordered Sig/Izabela Route Start Time Stop Time Status Last Admin Dose Admin Carvedilol 3.125 mg Q12HR PO 04/16/24 22:00 04/18/24 11:55 3.125 MG Atorvastatin Calcium 20 mg HS PO 04/16/24 22:00 Hold Albuterol 2.5 mg Q4HPRN PRN NEB 04/16/24 17:45 Cancel Aspirin 81 mg DAILY PO 04/17/24 10:00 04/19/24 08:53 81 MG Sodium Chloride 10 ml Q8HR IV 04/16/24 22:00 04/19/24 06:02 10 ML Acetaminophen/ Hydrocodone Bitart 1 tab Q4HP PRN PO 04/16/24 17:45 04/16/24 21:32 1 TAB Ondansetron HCl 4 mg Q4HP PRN IV 04/16/24 17:45 Docusate Sodium 100 mg BIDPRN PRN PO 04/16/24 17:45 Ibuprofen 600 mg Q6HP PRN PO 04/16/24 18:15 Hold Nitroglycerin 0.4 mg Q5MINP PRN SL 04/16/24 20:00 Morphine Sulfate 2 mg Q30M PRN IV 04/16/24 20:00 Melatonin 5 mg HS PO 04/16/24 22:00 04/18/24 22:00 5 MG Dextrose/Sodium Chloride 1,000 ml @ 75 mls/hr [id number] IV 04/18/24 07:45 04/18/24 22:00 75 MLS/HR Diagnostic Test (Pha) 1 strip IQ4HR 04/18/24 08:00 04/19/24 07:57 1 STRIP Dextrose 50 ml UD PRN IV 04/18/24 07:45 04/18/24 07:30 50 ML Insulin Human Regular IQ4HR SC 04/18/24 08:00 Ceftriaxone Sodium 50 ml @ 100 mls/hr DAILY@09 IV 04/19/24 09:00 04/19/24 09:04 100 MLS/HR Bumetanide 2 mg DAILY PO 04/19/24 10:00 Sacubitril/ Valsartan 1 tab DAILY PO 04/19/24 10:00 04/19/24 08:55 1 TAB Isosorbide Dinitrate 20 mg DAILY PO 04/19/24 10:00 Empaglifozin 25 mg DAILY PO 04/19/24 10:00 Olanzapine 2.5 mg DAILY PO 04/19/24 10:00 04/19/24 08:55 2.5 MG Nifedipine 20 mg DAILY PO 04/19/24 10:00 Multivitamins 1 tab DAILY PO 04/19/24 10:00 04/19/24 08:53 1 TAB Cholecalciferol 500 unit DAILY PO 04/19/24 10:00 04/19/24 09:04 500 UNIT Megestrol Acetate 40 mg DAILY PO 04/19/24 10:00 Ursodiol 300 mg BID PO 04/19/24 10:00 laboratory and microbiology Laboratory Tests 04/18/24 05:57 04/17/24 03:31 Test 04/18/24 05:57 Range/Units Serum Glucose 19 *L 74-106 mg/dL Problem List PT ADMITTED TO [facility] WITH METABOLIC ENCEPHALOPATHY FAMILY TOOK PT OUT OF [facility] AND BROUGHT HIM HERE TO [facility] BECAUSE THEY WANTED MY OPINION PT WITH METABOLIC ENCEPHALOPATHY ESRD ON HD ORG HD NORMAL CORONARIES EF <10% SEVERE TR SEVERE MR SEVERE PAH SECONDARY TO LEFT HEART FAILURE S/P BiV AICD HTN ELEVATED LIVER ENZYMES SECONDARY TO CHF LEFT HF CONTRIBUTING TO LIVER FAILRE PTs PROGNOSIS POOR DISCUSSED WITH FAIMILY ABOUT HOSPICE SERVICE ANEMIA HYPERKALEMIA Assessment/Plan CONSERVATIVE MANAGEMENT HOSPICE CONSULT HYPOGLYCEMIA D50 BOLUS SLIDING SCALE IV FLUID FAMILY DISCUSSION ASCITES CONT DIALYSIS DEFER HOSPICE SINE HEMODYNAMICALLY PT HAS IMPROVED WITH CORRECTION OF HYPOGLYCEMIA AND RESUSCITATION OF INTRAVASCULAR VOLUME Dietary Evaluation Review Comments: Encourage PO feedings when pt is alert. Monitor intake to meet 75% of his needs. consider TF or TPN if pt is not able to take in food>7 days. Expected Outcomes/Goals: gradual weight gain. Plan discussed with: Patient, Spouse Critical Care Time(min): 45 CELESTE MOCTEZUMA MD Apr 19, 2024 12:33
[2024-04-19 12:37] LABS: Hepatitis B Surface Antigen Negative (Negative)
[2024-04-19 12:58] LABS: Hepatitis A Ab IgM Negative
[2024-04-19 12:58] LABS: Hepatitis B Core Total AB Negative (Negative)
[2024-04-19 12:59] LABS: Hepatitis B Core IgM Negative; Hepatitis C Antibody Negative (Negative)
[2024-04-19 13:07] LABS: Anti-Nuclear Antibody Direct Negative (Negative)
--- NOTE | 2024-04-19 13:40 | DVHPN2 ---
Progress Note - Dictate Date Seen: Apr 19, 2024 Medical Necessity Reason Pt with a Central, PICC or Fol: Yes Subjective no new symptoms vital signs Vital Sign Date Time Temp Pulse Resp B/P (MAP) Pulse Ox O2 Delivery O2 Flow Rate FiO2 04/19/24 10:43 99 Nasal Cannula 3.0 04/19/24 10:43 32 04/19/24 10:00 94/68 04/19/24 10:00 64 04/19/24 05:00 97.8 18 97.8 Total Intake and Output 04/18/24 04/18/24 04/19/24 15:00 23:00 07:00 Intake Total 170 ml 1100 ml Balance 170 ml 1100 ml medications Current Medications Medications Dose Ordered Sig/Izabela Route Start Time Stop Time Status Last Admin Dose Admin Carvedilol 3.125 mg Q12HR PO 04/16/24 22:00 04/18/24 11:55 3.125 MG Atorvastatin Calcium 20 mg HS PO 04/16/24 22:00 Hold Albuterol 2.5 mg Q4HPRN PRN NEB 04/16/24 17:45 Cancel Aspirin 81 mg DAILY PO 04/17/24 10:00 04/19/24 08:53 81 MG Sodium Chloride 10 ml Q8HR IV 04/16/24 22:00 04/19/24 06:02 10 ML Acetaminophen/ Hydrocodone Bitart 1 tab Q4HP PRN PO 04/16/24 17:45 04/16/24 21:32 1 TAB Ondansetron HCl 4 mg Q4HP PRN IV 04/16/24 17:45 Docusate Sodium 100 mg BIDPRN PRN PO 04/16/24 17:45 Ibuprofen 600 mg Q6HP PRN PO 04/16/24 18:15 Hold Nitroglycerin 0.4 mg Q5MINP PRN SL 04/16/24 20:00 Morphine Sulfate 2 mg Q30M PRN IV 04/16/24 20:00 Melatonin 5 mg HS PO 04/16/24 22:00 04/18/24 22:00 5 MG Dextrose/Sodium Chloride 1,000 ml @ 75 mls/hr [id number] IV 04/18/24 07:45 04/19/24 10:25 75 MLS/HR Diagnostic Test (Pha) 1 strip IQ4HR 04/18/24 08:00 04/19/24 12:37 1 STRIP Dextrose 50 ml UD PRN IV 04/18/24 07:45 04/18/24 07:30 50 ML Insulin Human Regular IQ4HR SC 04/18/24 08:00 Ceftriaxone Sodium 50 ml @ 100 mls/hr DAILY@09 IV 04/19/24 09:00 04/19/24 09:04 100 MLS/HR Bumetanide 2 mg DAILY PO 04/19/24 10:00 Sacubitril/ Valsartan 1 tab DAILY PO 04/19/24 10:00 04/19/24 08:55 1 TAB Isosorbide Dinitrate 20 mg DAILY PO 04/19/24 10:00 Empaglifozin 25 mg DAILY PO 04/19/24 10:00 Olanzapine 2.5 mg DAILY PO 04/19/24 10:00 04/19/24 08:55 2.5 MG Nifedipine 20 mg DAILY PO 04/19/24 10:00 Multivitamins 1 tab DAILY PO 04/19/24 10:00 04/19/24 08:53 1 TAB Cholecalciferol 500 unit DAILY PO 04/19/24 10:00 04/19/24 09:04 500 UNIT Ursodiol 300 mg BID PO 04/19/24 10:00 Megestrol Acetate 40 mg DAILY PO 04/19/24 12:38 objective Gen: NAD HEENT: NC, AT Lungs: Crackles lung bases Cardiac: RRR, + systolic murmur Abd: soft Ext: no edema Skin: + Jaundice laboratory and microbiology Laboratory Tests 04/18/24 05:57 04/17/24 03:31 Test 04/18/24 05:57 Range/Units Serum Glucose 19 *L 74-106 mg/dL Assessment/Plan Assessment: ESRD on HD Hypoglycemia. improved Acute on chronic systolic CHF Severe Mitral regurgitation Severe Tricuspid regurgitation Hypotension Liver cirrhosis with ascites COPD Severe hyperbilirubinemia transaminitis Hyperkalemia Anemia of CKD Plan: HD today. spoke with HD RN at the beginning of dialysis will give albumin 25 g IV x2 as needed midodrine 10 mg PO x1 fluid restriction GI consult [facility] post HD as needed. goal Hb: 10-11 g/dl poor prognosis Dietary Evaluation Review Comments: Encourage PO feedings when pt is alert. Monitor intake to meet 75% of his needs. consider TF or TPN if pt is not able to take in food>7 days. Expected Outcomes/Goals: gradual weight gain. Plan discussed with: Patient, Other NICOLA CUBA MD Apr 19, 2024 13:40
[2024-04-19 13:45] LABS: Hepatitis A Total Antibody Negative (Negative)
[2024-04-19 13:46] LABS: Hepatitis B Surface Antibody Negative (Negative); Hepatitis B Surface Antigen Negative (Negative); Hepatitis C Antibody Negative (Negative)
[2024-04-19] MEDS: MIDODRINE HCL 10 MG TAB PO ONE (14:05)
[2024-04-19] MEDS: ALBUMIN 25% 100 ML IV ONE (15:07)
[2024-04-19] MEDS: MEGESTROL ACET 400MG/10ML ORAL SUSP PO SCH (17:00)
[2024-04-20] VITALS (9 sets, daily range): BP systolic 106–157; BP diastolic 60–86; PULSE 63–87; RESP 16–18; TEMP 97.2–98.6; O2SAT 94–100
[2024-04-20] MEDS: DOCUSATE SOD 100 MG CAP PO PRN (12:27)
--- NOTE | 2024-04-20 13:15 | DVHPN2 ---
Progress Note - Dictate Date Seen: Apr 20, 2024 Medical Necessity Reason Pt with a Central, PICC or Fol: Yes Subjective no new symptoms vital signs Vital Sign Date Time Temp Pulse Resp B/P (MAP) Pulse Ox O2 Delivery O2 Flow Rate FiO2 04/20/24 10:00 94 Nasal Cannula* 2 28 04/20/24 10:00 110/71 04/20/24 10:00 66 04/20/24 08:30 98.4 17 98.4 Total Intake and Output 04/19/24 04/19/24 04/20/24 15:00 23:00 07:00 Intake Total 1325 ml 1225 ml Output Total 1 ml 1 ml Balance 1324 ml 1224 ml medications Current Medications Medications Dose Ordered Sig/Izabela Route Start Time Stop Time Status Last Admin Dose Admin Carvedilol 3.125 mg Q12HR PO 04/16/24 22:00 04/18/24 11:55 3.125 MG Atorvastatin Calcium 20 mg HS PO 04/16/24 22:00 Hold Albuterol 2.5 mg Q4HPRN PRN NEB 04/16/24 17:45 Cancel Aspirin 81 mg DAILY PO 04/17/24 10:00 04/20/24 09:14 81 MG Sodium Chloride 10 ml Q8HR IV 04/16/24 22:00 04/20/24 05:15 10 ML Acetaminophen/ Hydrocodone Bitart 1 tab Q4HP PRN PO 04/16/24 17:45 04/16/24 21:32 1 TAB Ondansetron HCl 4 mg Q4HP PRN IV 04/16/24 17:45 Docusate Sodium 100 mg BIDPRN PRN PO 04/16/24 17:45 04/20/24 12:27 100 MG Ibuprofen 600 mg Q6HP PRN PO 04/16/24 18:15 Hold Nitroglycerin 0.4 mg Q5MINP PRN SL 04/16/24 20:00 Morphine Sulfate 2 mg Q30M PRN IV 04/16/24 20:00 Melatonin 5 mg HS PO 04/16/24 22:00 04/18/24 22:00 5 MG Dextrose/Sodium Chloride 1,000 ml @ 75 mls/hr [id number] IV 04/18/24 07:45 04/20/24 02:04 75 MLS/HR Diagnostic Test (Pha) 1 strip IQ4HR 04/18/24 08:00 04/20/24 12:38 1 STRIP Dextrose 50 ml UD PRN IV 04/18/24 07:45 04/18/24 07:30 50 ML Insulin Human Regular IQ4HR SC 04/18/24 08:00 Ceftriaxone Sodium 50 ml @ 100 mls/hr DAILY@09 IV 04/19/24 09:00 04/20/24 12:26 100 MLS/HR Bumetanide 2 mg DAILY PO 04/19/24 10:00 Sacubitril/ Valsartan 1 tab DAILY PO 04/19/24 10:00 04/20/24 09:16 1 TAB Isosorbide Dinitrate 20 mg DAILY PO 04/19/24 10:00 Empaglifozin 25 mg DAILY PO 04/19/24 10:00 Olanzapine 2.5 mg DAILY PO 04/19/24 10:00 04/20/24 09:16 2.5 MG Nifedipine 20 mg DAILY PO 04/19/24 10:00 Multivitamins 1 tab DAILY PO 04/19/24 10:00 04/20/24 09:14 1 TAB Cholecalciferol 500 unit DAILY PO 04/19/24 10:00 04/20/24 12:27 500 UNIT Ursodiol 300 mg BID PO 04/19/24 10:00 04/20/24 09:16 300 MG Megestrol Acetate 40 mg DAILY PO 04/19/24 12:38 04/19/24 17:00 40 MG objective Gen: NAD HEENT: NC, AT Lungs: Crackles lung bases Cardiac: RRR, + systolic murmur Abd: soft Ext: no edema Skin: + Jaundice laboratory and microbiology Laboratory Tests 04/18/24 05:57 04/17/24 03:31 Test 04/18/24 05:57 Range/Units Serum Glucose 19 *L 74-106 mg/dL Assessment/Plan Assessment: ESRD on HD Hypoglycemia. improved Acute on chronic systolic CHF Severe Mitral regurgitation Severe Tricuspid regurgitation Hypotension Liver cirrhosis with ascites COPD Severe hyperbilirubinemia transaminitis Hyperkalemia Anemia of CKD Plan: s/p HD Next HD on Tuesday. Midodrine prior to dialysis, and albumin x2 as needed to achieve UF goal. TTS schedule for hemodialysis fluid restriction GI consult [facility] post HD as needed. goal Hb: 10-11 g/dl poor prognosis Dietary Evaluation Review Comments: Encourage PO feedings when pt is alert. Monitor intake to meet 75% of his needs. consider TF or TPN if pt is not able to take in food>7 days. Expected Outcomes/Goals: gradual weight gain. Plan discussed with: NICOLA Rosado MD Apr 20, 2024 13:15
--- NOTE | 2024-04-20 14:17 | DVHPN2 ---
Progress Note - Dictate Date Seen: Apr 20, 2024 Medical Necessity Reason Pt with a Central, PICC or Fol: Yes Subjective PT ADMITTED TO [facility] WITH METABOLIC ENCEPHALOPATHY FAMILY TOOK PT OUT OF [facility] AND BROUGHT HIM HERE TO [facility] BECAUSE THEY WANTED MY OPINION PT WITH METABOLIC ENCEPHALOPATHY ESRD ON HD ORG HD NORMAL CORONARIES EF <10% SEVERE TR SEVERE MR SEVERE PAH SECONDARY TO LEFT HEART FAILURE S/P BiV AICD HTN ELEVATED LIVER ENZYMES SECONDARY TO CHF LEFT HF CONTRIBUTING TO LIVER FAILRE PTs PROGNOSIS POOR DISCUSSED WITH PATTY ABOUT HOSPICE SERVICE vital signs Vital Sign Date Time Temp Pulse Resp B/P (MAP) Pulse Ox O2 Delivery O2 Flow Rate FiO2 04/20/24 10:00 94 Nasal Cannula* 2 28 04/20/24 10:00 110/71 04/20/24 10:00 66 04/20/24 08:30 98.4 17 98.4 Total Intake and Output 04/19/24 04/19/24 04/20/24 15:00 23:00 07:00 Intake Total 1325 ml 1225 ml Output Total 1 ml 1 ml Balance 1324 ml 1224 ml medications Current Medications Medications Dose Ordered Sig/Izabela Route Start Time Stop Time Status Last Admin Dose Admin Carvedilol 3.125 mg Q12HR PO 04/16/24 22:00 04/18/24 11:55 3.125 MG Atorvastatin Calcium 20 mg HS PO 04/16/24 22:00 Hold Albuterol 2.5 mg Q4HPRN PRN NEB 04/16/24 17:45 Cancel Aspirin 81 mg DAILY PO 04/17/24 10:00 04/20/24 09:14 81 MG Sodium Chloride 10 ml Q8HR IV 04/16/24 22:00 04/20/24 05:15 10 ML Acetaminophen/ Hydrocodone Bitart 1 tab Q4HP PRN PO 04/16/24 17:45 04/16/24 21:32 1 TAB Ondansetron HCl 4 mg Q4HP PRN IV 04/16/24 17:45 Docusate Sodium 100 mg BIDPRN PRN PO 04/16/24 17:45 04/20/24 12:27 100 MG Ibuprofen 600 mg Q6HP PRN PO 04/16/24 18:15 Hold Nitroglycerin 0.4 mg Q5MINP PRN SL 04/16/24 20:00 Morphine Sulfate 2 mg Q30M PRN IV 04/16/24 20:00 Melatonin 5 mg HS PO 04/16/24 22:00 04/18/24 22:00 5 MG Dextrose/Sodium Chloride 1,000 ml @ 75 mls/hr [id number] IV 04/18/24 07:45 04/20/24 02:04 75 MLS/HR Diagnostic Test (Pha) 1 strip IQ4HR 04/18/24 08:00 04/20/24 12:38 1 STRIP Dextrose 50 ml UD PRN IV 04/18/24 07:45 04/18/24 07:30 50 ML Insulin Human Regular IQ4HR SC 04/18/24 08:00 Ceftriaxone Sodium 50 ml @ 100 mls/hr DAILY@09 IV 04/19/24 09:00 04/20/24 12:26 100 MLS/HR Bumetanide 2 mg DAILY PO 04/19/24 10:00 Sacubitril/ Valsartan 1 tab DAILY PO 04/19/24 10:00 04/20/24 09:16 1 TAB Isosorbide Dinitrate 20 mg DAILY PO 04/19/24 10:00 Empaglifozin 25 mg DAILY PO 04/19/24 10:00 Olanzapine 2.5 mg DAILY PO 04/19/24 10:00 04/20/24 09:16 2.5 MG Nifedipine 20 mg DAILY PO 04/19/24 10:00 Multivitamins 1 tab DAILY PO 04/19/24 10:00 04/20/24 09:14 1 TAB Cholecalciferol 500 unit DAILY PO 04/19/24 10:00 04/20/24 12:27 500 UNIT Ursodiol 300 mg BID PO 04/19/24 10:00 04/20/24 09:16 300 MG Megestrol Acetate 40 mg DAILY PO 04/19/24 12:38 04/19/24 17:00 40 MG laboratory and microbiology Laboratory Tests 04/18/24 05:57 04/17/24 03:31 Test 04/18/24 05:57 Range/Units Serum Glucose 19 *L 74-106 mg/dL Problem List PT ADMITTED TO [facility] WITH METABOLIC ENCEPHALOPATHY FAMILY TOOK PT OUT OF [facility] AND BROUGHT HIM HERE TO [facility] BECAUSE THEY WANTED MY OPINION PT WITH METABOLIC ENCEPHALOPATHY ESRD ON HD ORG HD NORMAL CORONARIES EF <10% SEVERE TR SEVERE MR SEVERE PAH SECONDARY TO LEFT HEART FAILURE S/P BiV AICD HTN ELEVATED LIVER ENZYMES SECONDARY TO CHF LEFT HF CONTRIBUTING TO LIVER FAILRE PTs PROGNOSIS POOR DISCUSSED WITH FAIMILY ABOUT HOSPICE SERVICE ANEMIA HYPERKALEMIA Assessment/Plan CONSERVATIVE MANAGEMENT HOSPICE CONSULT HYPOGLYCEMIA D50 BOLUS SLIDING SCALE IV FLUID FAMILY DISCUSSION ASCITES CONT DIALYSIS DEFER HOSPICE SINE HEMODYNAMICALLY PT HAS IMPROVED WITH CORRECTION OF HYPOGLYCEMIA AND RESUSCITATION OF INTRAVASCULAR VOLUME Dietary Evaluation Review Comments: Encourage PO feedings when pt is alert. Monitor intake to meet 75% of his needs. consider TF or TPN if pt is not able to take in food>7 days. Expected Outcomes/Goals: gradual weight gain. Plan discussed with: Patient CELESTE MOCTEZUMA MD Apr 20, 2024 14:17
--- NOTE | 2024-04-20 17:58 | DVHPN2 ---
Progress Note - Dictate Date Seen: Apr 20, 2024 Medical Necessity Reason Pt with a Central, PICC or Fol: Yes Subjective Patient seen at bedside Awake and arousable Patient has no new complaints Hypoglycemia has improved Patient received vitamin K No active GI bleeding was reported vital signs Vital Sign Date Time Temp Pulse Resp B/P (MAP) Pulse Ox O2 Delivery O2 Flow Rate FiO2 04/20/24 17:32 98.4 66 18 113/69 (84) 98 98.4 04/20/24 10:00 Nasal Cannula* 2 28 Total Intake and Output 04/19/24 04/19/24 04/20/24 15:00 23:00 07:00 Intake Total 1325 ml 1225 ml Output Total 1 ml 1 ml Balance 1324 ml 1224 ml medications Current Medications Medications Dose Ordered Sig/Izabela Route Start Time Stop Time Status Last Admin Dose Admin Carvedilol 3.125 mg Q12HR PO 04/16/24 22:00 04/18/24 11:55 3.125 MG Atorvastatin Calcium 20 mg HS PO 04/16/24 22:00 Hold Albuterol 2.5 mg Q4HPRN PRN NEB 04/16/24 17:45 Cancel Aspirin 81 mg DAILY PO 04/17/24 10:00 04/20/24 09:14 81 MG Sodium Chloride 10 ml Q8HR IV 04/16/24 22:00 04/20/24 14:00 10 ML Acetaminophen/ Hydrocodone Bitart 1 tab Q4HP PRN PO 04/16/24 17:45 04/16/24 21:32 1 TAB Ondansetron HCl 4 mg Q4HP PRN IV 04/16/24 17:45 Docusate Sodium 100 mg BIDPRN PRN PO 04/16/24 17:45 04/20/24 12:27 100 MG Ibuprofen 600 mg Q6HP PRN PO 04/16/24 18:15 Hold Nitroglycerin 0.4 mg Q5MINP PRN SL 04/16/24 20:00 Morphine Sulfate 2 mg Q30M PRN IV 04/16/24 20:00 Melatonin 5 mg HS PO 04/16/24 22:00 04/18/24 22:00 5 MG Dextrose/Sodium Chloride 1,000 ml @ 75 mls/hr [id number] IV 04/18/24 07:45 04/20/24 02:04 75 MLS/HR Diagnostic Test (Pha) 1 strip IQ4HR 04/18/24 08:00 04/20/24 16:39 1 STRIP Dextrose 50 ml UD PRN IV 04/18/24 07:45 04/18/24 07:30 50 ML Insulin Human Regular IQ4HR SC 04/18/24 08:00 Bumetanide 2 mg DAILY PO 04/19/24 10:00 Sacubitril/ Valsartan 1 tab DAILY PO 04/19/24 10:00 04/20/24 09:16 1 TAB Isosorbide Dinitrate 20 mg DAILY PO 04/19/24 10:00 Empaglifozin 25 mg DAILY PO 04/19/24 10:00 Olanzapine 2.5 mg DAILY PO 04/19/24 10:00 04/20/24 09:16 2.5 MG Nifedipine 20 mg DAILY PO 04/19/24 10:00 Multivitamins 1 tab DAILY PO 04/19/24 10:00 04/20/24 09:14 1 TAB Cholecalciferol 500 unit DAILY PO 04/19/24 10:00 04/20/24 12:27 500 UNIT Ursodiol 300 mg BID PO 04/19/24 10:00 04/20/24 09:16 300 MG Megestrol Acetate 40 mg DAILY PO 04/19/24 12:38 04/20/24 16:38 40 MG Daptomycin / Sodium Chloride 50 ml @ 100 mls/hr DAILY IV 04/21/24 10:00 UNV objective Gen: NAD HEENT: NC, AT Lungs: Crackles lung bases Cardiac: RRR, + systolic murmur Abd: soft; nontender mild distention due to ascites Ext: no edema Skin: + Jaundice laboratory and microbiology Laboratory Tests 04/18/24 05:57 04/17/24 03:31 Test 04/18/24 05:57 Range/Units Serum Glucose 19 *L 74-106 mg/dL Problems(with codes): (1) Hypoglycemia (2) Cirrhosis of liver (3) Ascites (4) Generalized weakness (5) Pancytopenia (6) Cardiomegaly (7) Elevated liver enzymes (8) End-stage renal disease on hemodialysis Prognosis Plan I started the patient on Actigall 300 mg p.o. twice a day yesterday There are no labs today I will order repeat labs in the morning and I will follow up patient with you Dietary Evaluation Review Comments: Encourage PO feedings when pt is alert. Monitor intake to meet 75% of his needs. consider TF or TPN if pt is not able to take in food>7 days. Expected Outcomes/Goals: gradual weight gain. Plan discussed with: Patient LEIGH MARTINEZ MD Apr 20, 2024 17:58
[2024-04-20] MEDS ORDERED: LINEZOLID 600MG/300ML 300 ML IV SCH (18:00)
[2024-04-20] MEDS: DAPTOmycin 500 MG in SODIUM CHL 0.9% 50 ML IV SCH (20:07)
[2024-04-21] VITALS (9 sets, daily range): BP systolic 93–134; BP diastolic 52–80; PULSE 58–86; RESP 17–18; TEMP 97.2–97.9; O2SAT 93–100
[2024-04-21] MEDS ORDERED: SODIUM CHL 0.9% 1000 ML BAG XX ONE (07:00)
[2024-04-21 07:37] LABS: Alkaline Phosphatase 108 U/L (46-116); Chloride 100 mmol/L (98-107); Potassium 3.9 mmol/L (3.5-5.1); Sodium 133 mmol/L (136-145)
[2024-04-21 07:48] LABS: Bilirubin, Total 33.1 mg/dL (0.2-1.0)
[2024-04-21 09:19] LABS: Alanine Aminotransferase 160 U/L (7-40); Albumin 2.5 g/dL (3.2-4.8); Anion Gap 7 (5-15); Aspartate Aminotransferase 64 U/L (13-40); Blood Urea Nitrogen 28 mg/dL (9-23); Calcium 9.1 mg/dL (8.7-10.4); Carbon Dioxide 26 mmol/L (20-31); Glucose 87 mg/dL (74-106); Total Protein 5.7 g/dL (5.7-8.2)
--- NOTE | 2024-04-21 12:30 | DVHPN2 ---
Progress Note - Dictate Date Seen: Apr 21, 2024 Medical Necessity Reason Pt with a Central, PICC or Fol: Yes Subjective no new symptoms vital signs Vital Sign Date Time Temp Pulse Resp B/P (MAP) Pulse Ox O2 Delivery O2 Flow Rate FiO2 04/21/24 10:50 107/66 04/21/24 10:00 58 04/21/24 09:47 99 Nasal Cannula 2.0 04/21/24 09:47 28 04/21/24 08:47 18 04/21/24 05:00 97.2 97.2 Total Intake and Output 04/20/24 04/20/24 04/21/24 15:00 23:00 07:00 Intake Total 1135 ml 495 ml Output Total 1 ml Balance 1134 ml 495 ml medications Current Medications Medications Dose Ordered Sig/Izabela Route Start Time Stop Time Status Last Admin Dose Admin Carvedilol 3.125 mg Q12HR PO 04/16/24 22:00 04/20/24 21:53 3.125 MG Atorvastatin Calcium 20 mg HS PO 04/16/24 22:00 Hold Albuterol 2.5 mg Q4HPRN PRN NEB 04/16/24 17:45 Cancel Aspirin 81 mg DAILY PO 04/17/24 10:00 04/21/24 10:36 81 MG Sodium Chloride 10 ml Q8HR IV 04/16/24 22:00 04/21/24 12:29 10 ML Acetaminophen/ Hydrocodone Bitart 1 tab Q4HP PRN PO 04/16/24 17:45 04/16/24 21:32 1 TAB Ondansetron HCl 4 mg Q4HP PRN IV 04/16/24 17:45 Docusate Sodium 100 mg BIDPRN PRN PO 04/16/24 17:45 04/20/24 12:27 100 MG Ibuprofen 600 mg Q6HP PRN PO 04/16/24 18:15 Hold Nitroglycerin 0.4 mg Q5MINP PRN SL 04/16/24 20:00 Morphine Sulfate 2 mg Q30M PRN IV 04/16/24 20:00 Melatonin 5 mg HS PO 04/16/24 22:00 04/20/24 21:52 5 MG Dextrose/Sodium Chloride 1,000 ml @ 75 mls/hr [id number] IV 04/18/24 07:45 04/21/24 05:26 75 MLS/HR Diagnostic Test (Pha) 1 strip IQ4HR 04/18/24 08:00 04/21/24 12:28 1 STRIP Dextrose 50 ml UD PRN IV 04/18/24 07:45 04/21/24 05:08 50 ML Insulin Human Regular IQ4HR SC 04/18/24 08:00 04/20/24 20:57 2 UNITS Bumetanide 2 mg DAILY PO 04/19/24 10:00 04/21/24 10:50 2 MG Sacubitril/ Valsartan 1 tab DAILY PO 04/19/24 10:00 04/21/24 10:37 1 TAB Isosorbide Dinitrate 20 mg DAILY PO 04/19/24 10:00 04/21/24 10:37 20 MG Empaglifozin 25 mg DAILY PO 04/19/24 10:00 04/21/24 10:38 25 MG Olanzapine 2.5 mg DAILY PO 04/19/24 10:00 04/21/24 10:37 2.5 MG Nifedipine 20 mg DAILY PO 04/19/24 10:00 Multivitamins 1 tab DAILY PO 04/19/24 10:00 04/21/24 10:36 1 TAB Cholecalciferol 500 unit DAILY PO 04/19/24 10:00 04/21/24 10:50 500 UNIT Ursodiol 300 mg BID PO 04/19/24 10:00 04/21/24 10:51 300 MG Megestrol Acetate 40 mg DAILY PO 04/19/24 12:38 04/21/24 10:00 40 MG Daptomycin 500 mg/ Sodium Chloride 50 ml @ 100 mls/hr Q48H IV 04/20/24 20:00 04/20/24 20:07 100 MLS/HR objective Gen: NAD HEENT: NC, AT Lungs: Crackles lung bases Cardiac: RRR, + systolic murmur Abd: soft Ext: no edema Skin: + Jaundice laboratory and microbiology Laboratory Tests 04/21/24 06:07 04/17/24 03:31 Test 04/21/24 06:07 Range/Units Serum Glucose 87 74-106 mg/dL Assessment/Plan Assessment: ESRD on HD Hypoglycemia. improved Acute on chronic systolic CHF Severe Mitral regurgitation Severe Tricuspid regurgitation Hypotension Liver cirrhosis with ascites COPD Severe hyperbilirubinemia transaminitis Hyperkalemia Anemia of CKD Plan: HD today- Tuesday. Midodrine prior to dialysis, and albumin x2 as needed to achieve UF goal. TTS schedule for hemodialysis fluid restriction GI consult [facility] post HD as needed. goal Hb: 10-11 g/dl poor prognosis Dietary Evaluation Review Comments: Encourage PO feedings when pt is alert. Monitor intake to meet 75% of his needs. consider TF or TPN if pt is not able to take in food>7 days. Expected Outcomes/Goals: gradual weight gain. Plan discussed with: Patient, Other NICOLA CUBA MD Apr 21, 2024 12:30
[2024-04-21] MEDS: ALBUMIN 25% 100 ML IV ONE (14:03)
--- NOTE | 2024-04-21 20:52 | DVHPN2 ---
Progress Note - Dictate Date Seen: Apr 21, 2024 Medical Necessity Reason Pt with a Central, PICC or Fol: Yes Subjective No new symptoms Awake and arousable Patient on a carb controlled diet Hypoglycemia has improved Patient received vitamin K No active GI bleeding was reported Liver enzymes are trending down with a bilirubin down to 33.1; AST ALT downtrending vital signs Vital Sign Date Time Temp Pulse Resp B/P (MAP) Pulse Ox O2 Delivery O2 Flow Rate FiO2 04/21/24 17:00 63 18 107/64 (78) 99 04/21/24 09:47 Nasal Cannula 2.0 04/21/24 09:47 28 04/21/24 05:00 97.2 97.2 Total Intake and Output 04/20/24 04/20/24 04/21/24 15:00 23:00 07:00 Intake Total 1135 ml 495 ml Output Total 1 ml Balance 1134 ml 495 ml medications Current Medications Medications Dose Ordered Sig/Izabela Route Start Time Stop Time Status Last Admin Dose Admin Carvedilol 3.125 mg Q12HR PO 04/16/24 22:00 04/20/24 21:53 3.125 MG Atorvastatin Calcium 20 mg HS PO 04/16/24 22:00 Hold Albuterol 2.5 mg Q4HPRN PRN NEB 04/16/24 17:45 Cancel Aspirin 81 mg DAILY PO 04/17/24 10:00 04/21/24 10:36 81 MG Sodium Chloride 10 ml Q8HR IV 04/16/24 22:00 04/21/24 12:29 10 ML Acetaminophen/ Hydrocodone Bitart 1 tab Q4HP PRN PO 04/16/24 17:45 04/16/24 21:32 1 TAB Ondansetron HCl 4 mg Q4HP PRN IV 04/16/24 17:45 Docusate Sodium 100 mg BIDPRN PRN PO 04/16/24 17:45 04/20/24 12:27 100 MG Ibuprofen 600 mg Q6HP PRN PO 04/16/24 18:15 Hold Nitroglycerin 0.4 mg Q5MINP PRN SL 04/16/24 20:00 Morphine Sulfate 2 mg Q30M PRN IV 04/16/24 20:00 Melatonin 5 mg HS PO 04/16/24 22:00 04/20/24 21:52 5 MG Dextrose/Sodium Chloride 1,000 ml @ 75 mls/hr [id number] IV 04/18/24 07:45 04/21/24 05:26 75 MLS/HR Diagnostic Test (Pha) 1 strip IQ4HR 04/18/24 08:00 04/21/24 17:17 1 STRIP Dextrose 50 ml UD PRN IV 04/18/24 07:45 04/21/24 05:08 50 ML Insulin Human Regular IQ4HR SC 04/18/24 08:00 04/20/24 20:57 2 UNITS Bumetanide 2 mg DAILY PO 04/19/24 10:00 04/21/24 10:50 2 MG Sacubitril/ Valsartan 1 tab DAILY PO 04/19/24 10:00 04/21/24 10:37 1 TAB Isosorbide Dinitrate 20 mg DAILY PO 04/19/24 10:00 04/21/24 10:37 20 MG Empaglifozin 25 mg DAILY PO 04/19/24 10:00 04/21/24 10:38 25 MG Olanzapine 2.5 mg DAILY PO 04/19/24 10:00 04/21/24 10:37 2.5 MG Nifedipine 20 mg DAILY PO 04/19/24 10:00 Multivitamins 1 tab DAILY PO 04/19/24 10:00 04/21/24 10:36 1 TAB Cholecalciferol 500 unit DAILY PO 04/19/24 10:00 04/21/24 10:50 500 UNIT Ursodiol 300 mg BID PO 04/19/24 10:00 04/21/24 10:51 300 MG Megestrol Acetate 40 mg DAILY PO 04/19/24 12:38 04/21/24 10:00 40 MG Daptomycin 500 mg/ Sodium Chloride 50 ml @ 100 mls/hr Q48H IV 04/20/24 20:00 04/20/24 20:07 100 MLS/HR objective Gen: NAD HEENT: NC, AT Lungs: Crackles lung bases Cardiac: RRR, + systolic murmur Abd: soft; nontender mild distention due to ascites Ext: no edema Skin: + Jaundice laboratory and microbiology Laboratory Tests 04/21/24 06:07 04/17/24 03:31 Test 04/21/24 06:07 Range/Units Serum Glucose 87 74-106 mg/dL Problems(with codes): (1) Cholestatic jaundice (2) Hypoglycemia (3) Cirrhosis of liver (4) Ascites (5) Generalized weakness (6) Pancytopenia (7) Elevated liver enzymes (8) Cardiomegaly (9) End-stage renal disease on hemodialysis (10) Cholelithiasis Prognosis Plan Continue supportive care Continue Actigall 300 mg p.o. twice a day Continue to monitor labs two or 3 times a week Correct coagulopathy Dietary Evaluation Review Comments: Encourage PO feedings when pt is alert. Monitor intake to meet 75% of his needs. consider TF or TPN if pt is not able to take in food>7 days. Expected Outcomes/Goals: gradual weight gain. Plan discussed with: Patient LEIGH MARTINEZ MD Apr 21, 2024 20:52
[2024-04-21] MEDS: EPOETIN ALFA-EPBX 4,000 UNIT/ML VIAL SC ONE (22:32)
[2024-04-22 05:17] VITALS: BP 106/69; PULSE 59; RESP 20; TEMP 98.1; O2SAT 98
[2024-04-22 08:00] VITALS: PULSE 61; PULSE 62; RESP 16; O2SAT 98
[2024-04-22 09:00] VITALS: BP 111/66; PULSE 61; RESP 18; TEMP 97.9; O2SAT 98
[2024-04-22 10:00] VITALS: O2SAT 98
--- NOTE | 2024-04-22 12:19 | DVHPN2 ---
Progress Note - Dictate Date Seen: Apr 22, 2024 Medical Necessity Reason Pt with a Central, PICC or Fol: Yes Subjective no new symptoms vital signs Vital Sign Date Time Temp Pulse Resp B/P (MAP) Pulse Ox O2 Delivery O2 Flow Rate FiO2 04/22/24 10:53 60 113/68 04/22/24 09:00 97.9 18 98 97.9 04/21/24 21:35 Nasal Cannula* 2 28 Total Intake and Output 04/21/24 04/21/24 04/22/24 15:00 23:00 07:00 Intake Total 880 ml 1900 ml Balance 880 ml 1900 ml medications Current Medications Medications Dose Ordered Sig/Izabela Route Start Time Stop Time Status Last Admin Dose Admin Carvedilol 3.125 mg Q12HR PO 04/16/24 22:00 04/22/24 10:53 3.125 MG Atorvastatin Calcium 20 mg HS PO 04/16/24 22:00 Hold Albuterol 2.5 mg Q4HPRN PRN NEB 04/16/24 17:45 Cancel Aspirin 81 mg DAILY PO 04/17/24 10:00 04/21/24 10:36 81 MG Sodium Chloride 10 ml Q8HR IV 04/16/24 22:00 04/22/24 05:17 10 ML Acetaminophen/ Hydrocodone Bitart 1 tab Q4HP PRN PO 04/16/24 17:45 04/16/24 21:32 1 TAB Ondansetron HCl 4 mg Q4HP PRN IV 04/16/24 17:45 Docusate Sodium 100 mg BIDPRN PRN PO 04/16/24 17:45 04/20/24 12:27 100 MG Ibuprofen 600 mg Q6HP PRN PO 04/16/24 18:15 Hold Nitroglycerin 0.4 mg Q5MINP PRN SL 04/16/24 20:00 Morphine Sulfate 2 mg Q30M PRN IV 04/16/24 20:00 Melatonin 5 mg HS PO 04/16/24 22:00 04/21/24 22:34 5 MG Dextrose/Sodium Chloride 1,000 ml @ 75 mls/hr [id number] IV 04/18/24 07:45 04/22/24 05:23 75 MLS/HR Diagnostic Test (Pha) 1 strip IQ4HR 04/18/24 08:00 04/22/24 08:00 1 STRIP Dextrose 50 ml UD PRN IV 04/18/24 07:45 04/21/24 05:08 50 ML Insulin Human Regular IQ4HR SC 04/18/24 08:00 04/21/24 21:00 147 UNITS Bumetanide 2 mg DAILY PO 04/19/24 10:00 04/22/24 10:51 2 MG Sacubitril/ Valsartan 1 tab DAILY PO 04/19/24 10:00 04/22/24 10:51 1 TAB Isosorbide Dinitrate 20 mg DAILY PO 04/19/24 10:00 04/22/24 10:50 20 MG Empaglifozin 25 mg DAILY PO 04/19/24 10:00 04/22/24 10:49 25 MG Olanzapine 2.5 mg DAILY PO 04/19/24 10:00 04/22/24 10:52 2.5 MG Nifedipine 20 mg DAILY PO 04/19/24 10:00 04/22/24 10:51 20 MG Multivitamins 1 tab DAILY PO 04/19/24 10:00 04/22/24 10:51 1 TAB Cholecalciferol 500 unit DAILY PO 04/19/24 10:00 04/22/24 10:50 500 UNIT Ursodiol 300 mg BID PO 04/19/24 10:00 04/22/24 10:48 300 MG Megestrol Acetate 40 mg DAILY PO 04/19/24 12:38 04/22/24 10:49 40 MG Daptomycin 500 mg/ Sodium Chloride 50 ml @ 100 mls/hr Q48H IV 04/20/24 20:00 04/20/24 20:07 100 MLS/HR objective Gen: NAD HEENT: NC, AT Lungs: Crackles lung bases Cardiac: RRR, + systolic murmur Abd: soft Ext: no edema Skin: + Jaundice laboratory and microbiology Laboratory Tests 04/21/24 06:07 04/17/24 03:31 Test 04/21/24 06:07 Range/Units Serum Glucose 87 74-106 mg/dL Assessment/Plan Assessment: ESRD on HD Hypoglycemia. improved Acute on chronic systolic CHF Severe Mitral regurgitation Severe Tricuspid regurgitation Hypotension Liver cirrhosis with ascites COPD Severe hyperbilirubinemia transaminitis Pancytopenia Anemia of CKD Plan: s/p HD Tuesday Next HD on [facility] schedule for hemodialysis fluid restriction GI consult [facility] post HD as needed. goal Hb: 10-11 g/dl poor prognosis Dietary Evaluation Review Comments: Encourage PO feedings when pt is alert. Monitor intake to meet 75% of his needs. consider TF or TPN if pt is not able to take in food>7 days. Expected Outcomes/Goals: gradual weight gain. Plan discussed with: Patient, Other NICOLA CUBA MD Apr 22, 2024 12:19
[2024-04-22 13:00] VITALS: BP 115/71; PULSE 64; RESP 16; TEMP 98; O2SAT 97
[2024-04-22] MEDS ORDERED: DEXTROSE 50% SYRINGE 50 ML IV ONE (16:11)
[2024-04-22] MEDS ORDERED: NOREPINEPHRINE 8 MG/250ML KIT 250 ML IV ONE (16:14)
[2024-04-22] MEDS ORDERED: fentaNYL Drip 2500mCg/250mlNS 250 ML IV ONE (16:21)
[2024-04-22] MEDS ORDERED: MIDAZOLAM DRIP 50 mg/50mL 50 ML IV SCH (16:30)
[2024-04-22] MEDS ORDERED: fentaNYL Drip 2500mCg/250mlNS 250 ML IV SCH (16:30)
[2024-04-22] MEDS ORDERED: NOREPINEPHRINE 8 MG/250ML KIT 250 ML IV SCH ×2 (16:30→16:45)
[2024-04-22] MEDS ORDERED: EPINEPHrine HCL 250 ML IV ONE (16:35)
[2024-04-22] MEDS ORDERED: PHENYLEPHRINE IV 250 ML IV ONE (16:35)
[2024-04-22] MEDS ORDERED: VASOPRESSIN 20 UNITS in SODIUM CHL 0.9% 99 ML IV SCH (16:45)
[2024-04-22] MEDS ORDERED: EPINEPHrine HCL 250 ML IV SCH ×2 (16:45)
[2024-04-22] MEDS ORDERED: PHENYLEPHRINE IV 250 ML IV SCH ×2 (16:45)
--- NOTE | 2024-04-22 16:46 | DVHPN2 ---
Progress Note - Dictate Date Seen: Apr 22, 2024 Medical Necessity Reason Pt with a Central, PICC or Fol: Yes Subjective Pt is doing better More Awake and arousable Patient on a carb controlled diet Hypoglycemia has improved Patient received vitamin K No active GI bleeding was reported Jaundice is improving Liver enzymes are trending down with a bilirubin down to 33.1; AST ALT downtrending vital signs Vital Sign Date Time Temp Pulse Resp B/P (MAP) Pulse Ox O2 Delivery O2 Flow Rate FiO2 04/22/24 13:00 98.0 64 16 115/71 (86) 97 98.0 04/21/24 21:35 Nasal Cannula* 2 28 Total Intake and Output 04/21/24 04/21/24 04/22/24 15:00 23:00 07:00 Intake Total 880 ml 1900 ml Balance 880 ml 1900 ml medications Current Medications Medications Dose Ordered Sig/Izabela Route Start Time Stop Time Status Last Admin Dose Admin Carvedilol 3.125 mg Q12HR PO 04/16/24 22:00 04/22/24 10:53 3.125 MG Atorvastatin Calcium 20 mg HS PO 04/16/24 22:00 Hold Albuterol 2.5 mg Q4HPRN PRN NEB 04/16/24 17:45 Cancel Aspirin 81 mg DAILY PO 04/17/24 10:00 04/21/24 10:36 81 MG Sodium Chloride 10 ml Q8HR IV 04/16/24 22:00 04/22/24 05:17 10 ML Acetaminophen/ Hydrocodone Bitart 1 tab Q4HP PRN PO 04/16/24 17:45 04/16/24 21:32 1 TAB Ondansetron HCl 4 mg Q4HP PRN IV 04/16/24 17:45 Docusate Sodium 100 mg BIDPRN PRN PO 04/16/24 17:45 04/20/24 12:27 100 MG Ibuprofen 600 mg Q6HP PRN PO 04/16/24 18:15 Hold Nitroglycerin 0.4 mg Q5MINP PRN SL 04/16/24 20:00 Morphine Sulfate 2 mg Q30M PRN IV 04/16/24 20:00 Melatonin 5 mg HS PO 04/16/24 22:00 04/21/24 22:34 5 MG Dextrose/Sodium Chloride 1,000 ml @ 75 mls/hr [id number] IV 04/18/24 07:45 04/22/24 05:23 75 MLS/HR Diagnostic Test (Pha) 1 strip IQ4HR 04/18/24 08:00 04/22/24 12:30 1 STRIP Dextrose 50 ml UD PRN IV 04/18/24 07:45 04/21/24 05:08 50 ML Insulin Human Regular IQ4HR SC 04/18/24 08:00 04/21/24 21:00 147 UNITS Bumetanide 2 mg DAILY PO 04/19/24 10:00 04/22/24 10:51 2 MG Sacubitril/ Valsartan 1 tab DAILY PO 04/19/24 10:00 04/22/24 10:51 1 TAB Isosorbide Dinitrate 20 mg DAILY PO 04/19/24 10:00 04/22/24 10:50 20 MG Empaglifozin 25 mg DAILY PO 04/19/24 10:00 04/22/24 10:49 25 MG Olanzapine 2.5 mg DAILY PO 04/19/24 10:00 04/22/24 10:52 2.5 MG Nifedipine 20 mg DAILY PO 04/19/24 10:00 04/22/24 10:51 20 MG Multivitamins 1 tab DAILY PO 04/19/24 10:00 04/22/24 10:51 1 TAB Cholecalciferol 500 unit DAILY PO 04/19/24 10:00 04/22/24 10:50 500 UNIT Ursodiol 300 mg BID PO 04/19/24 10:00 04/22/24 10:48 300 MG Megestrol Acetate 40 mg DAILY PO 04/19/24 12:38 04/22/24 10:49 40 MG Daptomycin 500 mg/ Sodium Chloride 50 ml @ 100 mls/hr Q48H IV 04/20/24 20:00 04/20/24 20:07 100 MLS/HR Midazolam HCl 50 ml @ 1 mls/hr Q24H IV 04/22/24 16:30 UNV Fentanyl Citrate 250 ml @ 2.5 mls/hr Q24H IV 04/22/24 16:30 UNV Norepinephrine Bitartrate 250 ml @ 3.75 mls/hr Q24H IV 04/22/24 16:30 UNV Epinephrine HCl 250 ml @ 7.5 mls/hr Q24H IV 04/22/24 16:45 UNV Phenylephrine HCl 250 ml @ 30 mls/hr Q8H20M IV 04/22/24 16:45 UNV objective Gen: NAD HEENT: NC, AT Lungs: Crackles lung bases Cardiac: RRR, + systolic murmur Abd: soft; nontender mild distention due to ascites Ext: no edema Skin: + Jaundice laboratory and microbiology Test 04/22/24 16:29 Range/Units Serum Glucose Pending Problems(with codes): (1) Cirrhosis of liver (2) Hypoglycemia (3) Cholestatic jaundice (4) Cholelithiasis (5) Ascites (6) Generalized weakness (7) Pancytopenia (8) Cardiomegaly (9) End-stage renal disease on hemodialysis Prognosis Plan Continue supportive care Continue Actigall 300 mg p.o. twice a day Continue to monitor labs two or 3 times a week Correct coagulopathy Dietary Evaluation Review Comments: Encourage PO feedings when pt is alert. Monitor intake to meet 75% of his needs. consider TF or TPN if pt is not able to take in food>7 days. Expected Outcomes/Goals: gradual weight gain. Plan discussed with: Patient, Spouse LEIGH MARTINEZ MD Apr 22, 2024 16:46
[2024-04-22 16:50] LABS: Basophils # (auto) 0 10 ^3/uL (0-0.2); Hemoglobin 7.3 g/dL (13.5-17.5); Monocytes # (auto) 0.2 10 ^3/uL (0-1.3)
[2024-04-22] MEDS ORDERED: VASOPRESSIN 20 UNIT/ML ONE (16:50)
[2024-04-22 16:53] LABS: Basophils % (auto) 0.5 % (0.0-2.0); Eosinophils # (auto) 0.1 10 ^3/uL (0-0.8); Eosinophils % (auto) 1.8 % (0.0-7.0); Hematocrit 21.3 % (41.0-53.0); Lymphocytes % (auto) 31.5 % (10.0-50.0); Mean Corpuscular Hemoglobin 36.8 pg (28.0-32.0); Mean Corpuscular Hgb Conc. 34.2 g/dL (32.0-36.0); Mean Corpuscular Volume 107.7 fL (80.0-100.0); Monocytes % (auto) 6.2 % (0.0-12.0); Neutrophils # (auto) 1.8 10 ^3/uL (1.6-8.6); Red Blood Cells 1.98 10^6/uL (4.5-5.90); Red Cell Distribution Width 16.7 % (11.8-14.3); White Blood Cell 3.1 10^3/uL (4.4-10.8)
[2024-04-22] MEDS ORDERED: HYDROCORTISONE SOD SUCC 100 MG/2ML INJ VIAL ONE (16:54)
[2024-04-22] MEDS ORDERED: DOPamine 1600MCG/ML D5W 250 ML IV SCH (17:00)
[2024-04-22 17:08] LABS: Alkaline Phosphatase 89 U/L (46-116); Calcium 9.5 mg/dL (8.7-10.4); Chloride 104 mmol/L (98-107); Potassium 4.3 mmol/L (3.5-5.1); Sodium 136 mmol/L (136-145)
[2024-04-22 17:09] LABS: Alanine Aminotransferase 115 U/L (7-40); Albumin 2.1 g/dL (3.2-4.8); Anion Gap 7 (5-15); Aspartate Aminotransferase 61 U/L (13-40); BUN/Creatinine Ratio 6.9 (10.0-20.0); Bilirubin, Total 27.8 mg/dL (0.2-1.0); Carbon Dioxide 25 mmol/L (20-31); Platelet Count (auto) 13 10^3/uL (140-450)
[2024-04-22 17:16] LABS: Blood Urea Nitrogen 18 mg/dL (9-23); Glucose 219 mg/dL (74-106)
--- NOTE | 2024-04-22 17:52 | DVHINCON2 ---
Date of service: Apr 22, [address] Rouse Reason for Consultation Acute respiratory failure History of Present Illness 58-year-old man history of COPD, CHF, hypertension, end-stage resume hemodialysis who initially presented to [facility] with an altered level of consciousness. He had an altered four days prior to admission. This afternoon patient had a cardiac arrest. I was called emergently due to acute hypoxic respiratory failure on mechanical ventilator management. Review of systems: Unable to obtain due to patient's critical condition. Past medical history: CHF, COPD, hypertension, end-stage renal disease on hemodialysis Past surgical history: Hemodialysis access Medications: Reviewed Allergies: Lasix Family history: No family history of premature CAD. No family history of lung disease Social history: Nonsmoker. No alcohol or illicit drug use. Family History: Patient reports no known family medical history. Allergies: Coded Allergies: Furosemide (Verified Allergy, Unknown, 02/28/23) Home Meds Reported Medications Sacubitril-Valsartan (Entresto 24-26 mg) 1 Tab Tab, 1 TAB PO DAILY, TAB 04/18/24 Olanzapine (OLANZAPINE) 2.5 Mg Tab, 2.5 MG PO DAILY for 30 Days, MG 04/18/24 Nifedipine (PROCARDIA CAPSULE) 10 Mg Cp, 20 MG PO DAILY, CAP 04/18/24 Multiple Vitamin (Multivitamins) Tab, 1 TAB PO DAILY, #90 TAB 3 Refills 04/18/24 Cholecalciferol (Vitamin D-3 Super Strengt) 2,000 Unit Tab, 1 TAB PO DAILY for 60 Days, #60 04/18/24 Empagliflozin (Jardiance) 25 Mg Tab, 1 TAB PO DAILY for 60 Days, #60 04/18/24 Carvedilol (Carvedilol) 3.125 Mg Tab, 1 TAB PO BID for 60 Days, #120 04/18/24 Megestrol Acetate (Megestrol Acetate) 40 Mg Tab, 1 TAB PO BID for LOSS OF APPETITE 07/07/23 Bumetanide (Bumetanide) 2 Mg Tab, 1 TAB PO DAILY for EDEMA for 60 Days, #60 04/06/23 Atorvastatin Calcium (ATORVASTATIN CALCIUM) 40 Mg Tab, 1 TAB PO DAILY for HIGH CHOLESTEROL for 60 Days, #60 04/06/23 Isosorbide Dinitrate (Isosorbide Dinitrate) 20 Mg Tab, 1 TAB PO BID for ANGINA 04/06/23 Discontinued Reported Medications Empagliflozin (Jardiance) 10 Mg Tab, 1 TAB PO DAILY for DIABETES 07/05/23 Carvedilol (Carvedilol) 25 Mg Tab, 1 TAB PO BID for HYPERTENSION 04/06/23 Current Medications Current Medications Medications (Trade) Dose Ordered Sig/Izabela Route PRN Reason Start Time Stop Time Status Last Admin Midazolam HCl 50 ml @ 1 mls/hr Q24H IV 04/22/24 16:30 Fentanyl Citrate 250 ml @ 2.5 mls/hr Q24H IV 04/22/24 16:30 Norepinephrine Bitartrate 250 ml @ 3.75 mls/hr Q24H IV 04/22/24 16:30 04/22/24 16:48 DC Epinephrine HCl 250 ml @ 7.5 mls/hr Q24H IV 04/22/24 16:45 04/22/24 16:47 DC Phenylephrine HCl 250 ml @ 30 mls/hr Q8H20M IV 04/22/24 16:45 04/22/24 16:47 DC Vasopressin 20 units/Sodium Chloride 100 ml @ 9 mls/hr Q11H7M IV 04/22/24 16:45 Epinephrine HCl 250 ml @ 7.5 mls/hr Q24H IV 04/22/24 16:45 Norepinephrine Bitartrate 250 ml @ 3.75 mls/hr Q24H IV 04/22/24 16:45 Phenylephrine HCl 250 ml @ 30 mls/hr Q8H20M IV 04/22/24 16:45 Dopamine HCl/ Dextrose 250 ml @ 2.906 mls/ hr Q24H IV 04/22/24 17:00 Vital Signs Vital Signs Date Time Temp Pulse Resp B/P (MAP) Pulse Ox O2 Delivery O2 Flow Rate FiO2 04/22/24 13:00 98.0 64 16 115/71 (86) 97 98.0 04/21/24 21:35 Nasal Cannula* 2 28 Physical Exam Gen.: Patient lying in bed in medical ICU. Sedated, intubated on mechanical ventilator. Head: Normocephalic, atraumatic. Eyes: PERRLA. Ears: Normal external anatomy. Throat: Endotracheal tube and orogastric tube in place. Neck: Supple, trachea midline. Chest: Transmitted breath sounds bilaterally. Decreased air entry bilaterally. No wheezing. Bibasilar crackles. Cardio vascular: Positive S1, positive S2. Regular rate and rhythm. Abdomen: Positive bowel sounds in all 4 quadrants. Soft, nontender, nondistended. : Garcia in place. Normal external genitalia. Rectal: Deferred Skin: Warm, dry. Intact. Extremities: 2+ radial pulses bilaterally. No lower extremity edema. Neuro: Sedated. Labs/Diagnostic Data Labs Test 04/22/24 17:15 04/22/24 16:31 04/22/24 16:29 04/18/24 05:57 Range/Units POC Glucose 176 H 70-106 mg/dl White Blood Count 3.1 #L 4.4-10.8 10^3/uL Red Blood Count 1.98 L 4.5-5.90 10^6/uL Hemoglobin 7.3 #L 13.5-17.5 g/dL Hematocrit 21.3 #L 41.0-53.0 % Mean Corpuscular Volume 107.7 H 80.0-100.0 fL Mean Corpuscular Hemoglobin 36.8 H 28.0-32.0 pg Mean Corpuscular Hemoglobin Concent 34.2 32.0-36.0 g/dL Red Cell Distribution Width 16.7 H 11.8-14.3 % Platelet Count 13 #*L 140-450 10^3/uL Mean Platelet Volume 11.0 H 6.9-10.8 fL Neutrophils (%) (Auto) 60.0 37.0-80.0 % Lymphocytes (%) (Auto) 31.5 10.0-50.0 % Monocytes (%) (Auto) 6.2 0.0-12.0 % Eosinophils (%) (Auto) 1.8 0.0-7.0 % Basophils (%) (Auto) 0.5 0.0-2.0 % Neutrophils # (Auto) 1.8 1.6-8.6 10 ^3/uL Lymphocytes # (Auto) 1.0 0.4-5.4 10 ^3/uL Monocytes # (Auto) 0.2 0-1.3 10 ^3/uL Eosinophils # (Auto) 0.1 0-0.8 10 ^3/uL Basophils # (Auto) 0 0-0.2 10 ^3/uL Nucleated Red Blood Cells 1.0 % Sodium Level 136 136-145 mmol/L Potassium Level 4.3 3.5-5.1 mmol/L Chloride Level 104 98-107 mmol/L Carbon Dioxide Level 25 20-31 mmol/L Anion Gap 7 5-15 Blood Urea Nitrogen 18 # 9-23 mg/dL Creatinine 2.62 H 0.700-1.30 mg/dL Glomerular Filtration Rate Calc 28 >90 mL/min BUN/Creatinine Ratio 6.9 L 10.0-20.0 Serum Glucose 219 #H 74-106 mg/dL Calcium Level 9.5 8.7-10.4 mg/dL Magnesium Level 2.0 1.6-2.6 mg/dL Total Bilirubin 27.8 H 0.2-1.0 mg/dL Aspartate Amino Transferase (AST) 61 H 13-40 U/L Alanine Aminotransferase (ALT) 115 H 7-40 U/L Alkaline Phosphatase 89 46-116 U/L Troponin I High Sensitivity 23 </=54 ng/L Albumin 2.1 L 3.2-4.8 g/dL Ferritin 7124.5 H 22-322 ng/mL Tumor Marker Alpha Fetoprotein <1.8 0.0-8.4 ng/mL Anti-Nuclear Antibody Screen Negative Negative Hepatitis A Antibody Total Negative Negative Hepatitis B Surface Antigen Negative Negative Hepatitis B Surface Antibody Negative Negative Hepatitis B Core Total Antibody Negative Negative Hepatitis C Antibody Negative Negative Test 04/17/24 03:31 04/16/24 18:13 04/16/24 14:14 Range/Units Hepatitis A IgM Antibody Negative Hepatitis B Core IgM Antibody Negative Poikilocytosis (manual) Slight Anisocytosis (manual) Slight Macrocytosis Moderate [place]illac Cells Few B-Type Natriuretic Peptide > 5000.00 0-100 pg/mL Lactic Acid Level 1.3 0.4-2.0 mmol/L Ammonia 21 11-32 umol/L Microbiology Date/Time Source Procedure Growth Status 04/18/24 06:21 Nose MRSA Screen - Final Complete 04/16/24 14:14 Blood Blood Culture - Final Enterococcus faecium - VRE Complete Assessment Impression: Acute hypoxic respiratory failure On mechanical ventilator Aspiration pneumonia Shock, cardiogenic ESRD on hemodialysis Status post cardiac arrest Acute metabolic encephalopathy Plan: s/p intubation emergently. See separate procedure note. Ambu-bagging during code blue. Multiple rounds of ACLS/CPR were conducted. Multiple rounds of Epi, bicarbonate, calcium chloride and D50 Right IJ Central line attempted, but removed as unable to advance guidewire. Left femoral central line was placed emergently. See separate procedure note. Therapeutic bronchoscopy performed and removed copious aspirated food contents. See separate procedure note On multiple pressors for hemodynamic support Maxed on Epi, Levo, NeoSynephrine, Dopamine and Vasopressin. Titrate to keep MAP above 65 mmHg/SBP above 90 mmHg. Gave Hydrocortisone 100mg IVP x 1. Continue antibiotics. F/u cultures. Diurese with Bumex Monitor renal function due to Acute kidney injury. Monitor electrolytes. Supplement as necessary. Nutritional support. Accucheks, ISS. GI/DVT prophylaxis. Code blue was called after over an hour of ACLS CPR. ROSC would be achieved and lost within a minute. Limited Cardiac echo done at bedside. Low EF, V fib. PEA on monitor. After an hour of resuscitation efforts, code blue was called. Family at bedside. Per relative at bedside, son said to call code if we are unable to revive his father. See separate code blue sheet for full details. Condition: Critical Prognosis: Poor given multiple comorbidities. Patient . Rest of plan per hospitalist and other consultants. A total of 90 minutes of critical care time was spent reviewing the patient record, examining the patient, making a diagnostic and therapeutic plan, discussing this plan with the medical personnel, following up on diagnostic studies and following the patient for clinical stability excluding any and all procedures. At least 50% of this time was spent in direct, [id number] contact. Thank you Dr. Rouse for allowing me to participate in this patient's care. Further recommendations will depend on patient's clinical course. Please do not hesitate to contact me if you have any questions or concerns. This medical document was created using an electronic medical record system with [employer] system. Although this document has been carefully reviewed, there may still be some phonetic and typographical errors. These areas are purely typographical due to imperfections of the software programs, and do not reflect any compromise in the patient's medical care. Plan discussed with: Spouse, Son, Other (RN Atilio, RN Jonna, RN Cheyenne, RT MD Kristal) KHUSHBU NEIL MD Apr 22, 2024 17:52
--- NOTE | 2024-04-22 17:54 | DVHNC2 ---
Procedure - Procedure: Endotracheal Intubation INDICATION: Acute respiratory failure, accessory muscle usage Physician: Khushbu Hart MD CONSENT: Emergent procedure. Implied. PROCEDURE SUMMARY: A time out was performed. My hands were washed immediately prior to the procedure. I wore a surgical cap, mask with protective eyewear, gown and gloves throughout the procedure. The patient was placed on a cardiac care nurse including continuous pulse oximetry. Cricoid pressure was maintained to time of cuff balloon inflation. Using a MAC 4 GlideoScope and a size 8.0 endotracheal tube with stylet, the patient was intubated on the 1 attempt. The stylet was removed and cuff balloon was inflated. Appropriate endotracheal tube position was confirmed by direct visualization of vocal cord passage, fogging of the tube, CO2 colometric indicator and symmetric breath sounds. The tube was secured at 23 cm at the lips. Confirmed placement with bronchoscopy performed immediately post intubation. CPT Code: 23139 KHUSHBU HART MD Apr 22, 2024 17:54
--- NOTE | 2024-04-22 17:56 | DVHNC2 ---
Procedure - ULTRASOUND-GUIDED LEFT Femoral Vein CENTRAL VENOUS CANNULATION CPT Codes: 49243 (ultrasound guidance) 39259 (insertion of non-tunneled centrally inserted central venous catheter) DATE: 04/22/2024 PHYSICIAN: Khushbu Hart PREOPERATIVE DIAGNOSIS: Shock, Cardiac arrest POSTOPERATIVE DIAGNOSIS: Shock, Cardiac arrest PROCEDURE PERFORMED: Limited Ultrasound-guided LEFT femoral central line placement. ANESTHESIA: 2 mL of 1% lidocaine plain. ESTIMATED BLOOD LOSS: less than 5 mL. SPECIMENS: None. COMPLICATIONS: None. INDICATIONS FOR PROCEDURE: The patient is in need of large bore IV access for administration of fluids, including blood products and vasoactive drugs, and possibly CVP monitoring for hemodynamic instability. DESCRIPTION OF PROCEDURE IN DETAIL: The patient was lying in the reverse Trendelenburg position. The skin was thoroughly sponged with chlorhexidine and allowed to dry. All persons involved were shielded with hair nets, face masks and sterile gowns. With sterile-gloved hands the LEFT neck area was draped with the large disposable sterile field provided in the pre-manufactured kit. The skin and subcutaneous tissues superficial to the LEFT femoral vein were anesthetized with 2 mL of 1% lidocaine. The LEFT femoral vein was identified on ultrasound using the linear ultrasound probe in the transverse orientation. The femoral artery was identified and avoided utilizing color-flow. The femoral vein was then placed in the center of the ultrasound field and compressed for patency. A movement artifact was identified as the needle was advanced through the skin and advanced toward the vessel. A real time hyperechoic signal revealed visualization of vascular needle entry into the lumen as blood was noted to flashback in the syringe. The needle was then held in place while the guide wire was advanced. The needle was then removed. Direct visualization of guide wire location within the vein was noted on ultrasound indicating proper placement and was document in the electronic medical record chart. A skin dilator was advanced over the guidewire and removed, and the triple-lumen catheter was then advanced over the guide wire into proper position. The guide wire was removed and discarded. The ports were aspirated which showed good blood return and then carefully flushed with normal saline. The catheter was stabilized and sutured to the skin with 2-0 silk at 2 anchor points. A sterile bio-patch and dressing was placed over the catheter, including the insertion site. The patient tolerated the procedure well. An image recording of the procedure accompanies the chart. KHUSHBU HART MD Apr 22, 2024 17:56
--- NOTE | 2024-04-22 17:58 | DVHNC2 ---
Procedure - Therapeutic Bronchoscopy procedure note: Indications: Aspiration, mucous plugging. Medicines: See AUTOMATED LOGISTICS SPECIALIST notes. Complications: None Procedure: Patient medications and allergies reviewed. The risks and benefits of the procedure and the sedation options and risk were discussed with the patient's healthcare proxy. All questions were answered and informed consent was obtained. Patient identification and proposed procedure were verified prior to the procedure by the physician, and a nurse, and the respiratory therapist in ICU room. The heart rate, respiratory rate, oxygen saturations, blood pressure, adequacy of pulmonary ventilation, and response to care were monitored througho ut the procedure. The physical status of the patient was reassessed after the procedure. After obtaining informed consent, the bronchoscope was introduced through the endotracheal tube and advanced into the trachea bronchial tree of both lungs. The procedure was accomplished without difficulty. The patient tolerated the procedure well. Findings: The trachea is in normal caliber. The russell is sharp. The tracheobronchial tree of the right lung was examined to at least the first subsegmental level. The bronchial mucosa and anatomy in the right lung are normal. There are no endobronchial lesions. There was copious brownish secretions and food contents from right main stem bronchus onward throughout R1-R10. The left upper lobe, lingula, and left lower lobe were examined to at least the first subsegmental level. Bronchial mucosa and anatomy in the left upper lobe and lingula are normal. There were no endobronchial lesions. There was copious brownish secretions and food contents from left main stem bronchus onward throughout L1-L10. Mucous plugging removed from L1-L10. There was no active bleeding at the completion of the procedure. Estimated blood loss: Less than 5 mL. Impression: Aspiration pneumonia Aspiration of food contents Mucous plugging from L1-L10 and R1-R10 Recommendation: Pulmonary toileting Procedure codes: 17996, bronchoscopy, rigid and flexible, including fluoroscopic guidance, one performed; with bronchial endobronchial removal of foreign aspirated contents, single or multiple sites KHUSHBU NEIL MD Apr 22, 2024 17:58
[2024-04-22 18:02] LABS: Total Protein 4.4 g/dL (5.7-8.2)
[2024-04-22 18:23] LABS: Anisocytosis Slight; Macrocytosis Moderate; Target Cell FEW
[2024-04-22 18:24] LABS: Platelet Estimate Markedly Decreased
--- NOTE | 2024-04-22 19:57 | RESUS ---
CODE BLUE ASSESSSMENT History of Events History of Events: CPR INITIATED AFTER PATIENT WAS WITNESSED BY SITTER WHO WAS IN ROOM ATTEMPTING TO BE GETTING OUT OF BED THEN VOMITTED AND LOST PULSES. Initial Information Date: Apr 22, 2024 Time: 15:53 [place] Witnessed: Yes CPR started initial time: 15:53 CPR started by whom: Hospital Staff Type of arrest: Cardiac, Respiratory, Witnessed Spontaneous Respirations: No Pulse Present: No Monitoring: ECG, Pulse Oximetry Crash Cart Opened and Supplies: Yes Airway Ventilation Breathing at Onset: Agonal Oxygen Delivery Method: Ambu-Bag Time of first Assisted Ventila: 15:53 Artificial Ventilation: Bag/Mask Intubation Time: 15:58 Intubation Size: 8.0 cuffed Intubated by: DR NEIL Intubated orally: Yes Tube secured at: 24 Cricoid pressure done: Yes CO2 indicator used: Yes Confirmation: Auscultation, Exhaled CO2 Suctioning (Oral/Tracheal): Yes Circulation Circulation #1: Time: 15:53 Pulse Rate (adult): 0 Blood Pressure Systolic: 0 Blood Pressure Diastolic: 0 Temperature (Fahrenheit): 98.0 Circulation Comment: PEA Circulation #2: Time: 15:55 Pulse Rate (adult): 0 Blood Pressure Systolic: 0 Blood Pressure Diastolic: 0 Circulation Comment: PEA Circulation #3: Time: 15:59 Pulse Rate (adult): 0 Blood Pressure Systolic: 0 Blood Pressure Diastolic: 0 Circulation Comment: PEA Circulation #4: Time: 16:01 Pulse Rate (adult): 0 Blood Pressure Systolic: 0 Blood Pressure Diastolic: 0 Circulation Comment: PEA Circulation #5: Time: 16:03 Pulse Rate (adult): 0 Blood Pressure Systolic: 0 Blood Pressure Diastolic: 0 Circulation Comment: PEA Circulation #6: Time: 16:05 Pulse Rate (adult): 0 Blood Pressure Systolic: 0 Blood Pressure Diastolic: 0 Circulation Comment: PEA Circulation #7: Time: 16:07 Pulse Rate (adult): 0 Blood Pressure Systolic: 0 Blood Pressure Diastolic: 0 Circulation Comment: PEA Circulation #8: Time: 16:09 Pulse Rate (adult): 72 Blood Pressure Systolic: 113 Blood Pressure Diastolic: 90 Circulation Comment: ROSC Circulation #9: Time: 16:30 Pulse Rate (adult): 0 Blood Pressure Systolic: 0 Blood Pressure Diastolic: 0 Circulation Comment: ASYSTOLE, CODE # 2 Circulation #10: Time: 16:32 Pulse Rate (adult): 0 Blood Pressure Systolic: 0 Blood Pressure Diastolic: 0 Circulation Comment: PEA Circulation #11: Time: 16:34 Pulse Rate (adult): 112 Circulation Comment: ROSC Circulation #12: Time: 16:35 Pulse Rate (adult): 0 Blood Pressure Systolic: 0 Blood Pressure Diastolic: 0 Circulation Comment: LOST PULSES Circulation #13: Time: 16:37 Pulse Rate (adult): 0 Blood Pressure Systolic: 0 Blood Pressure Diastolic: 0 Circulation Comment: PEA Circulation #14: Time: 16:39 Pulse Rate (adult): 83 Circulation Comment: ROSC. ALL VASOPRESSOR DRIPS (LEVOPHED, EPINEPHRINE, NEOSYNEPHRINE, DOPAMINE, VASOPRESSIN) STARTED AT THIS TIME AT MAX RATES PER DR NEIL ORDER. Circulation #15: Time: 16:45 Pulse Rate (adult): 0 Blood Pressure Systolic: 0 Blood Pressure Diastolic: 0 Circulation Comment: LOST PULSES Circulation #16: Time: 16:48 Pulse Rate (adult): 118 Circulation Comment: ROSC Circulation #17: Time: 16:56 Pulse Rate (adult): 0 Blood Pressure Systolic: 0 Blood Pressure Diastolic: 0 Circulation Comment: LOST PULSES Circulation #18: Time: 16:58 Pulse Rate (adult): 0 Blood Pressure Systolic: 0 Blood Pressure Diastolic: 0 Circulation Comment: PEA Circulation #19: Time: 17:00 Pulse Rate (adult): 0 Blood Pressure Systolic: 0 Circulation Comment: PEA Circulation #20: Time: 17:02 Pulse Rate (adult): 0 Blood Pressure Systolic: 0 Blood Pressure Diastolic: 0 Circulation Comment: PEA Circulation #21: Time: 17:04 Pulse Rate (adult): 0 Blood Pressure Systolic: 0 Blood Pressure Diastolic: 0 Circulation Comment: PEA Circulation #22: Time: 17:06 Pulse Rate (adult): 0 Blood Pressure Systolic: 0 Circulation Comment: PEA Circulation #23: Time: 17:08 Pulse Rate (adult): 0 Blood Pressure Systolic: 0 Blood Pressure Diastolic: 0 Circulation Comment: PEA Circulation #24: Time: 17:09 Pulse Rate (adult): 0 Blood Pressure Systolic: 0 Blood Pressure Diastolic: 0 Circulation Comment: PEA THEN ASYSTOLE, TIME OF CALLED. DR NEIL SPEAKING WITH FAMILY AT BEDSIDE. Defibrillation Defbrillation : Time Defibrillator Applied: 15:54 Procedure - IV Procedure - IV : IV start time: 16:39 IV Side: Left IV Location: Femoral IV Catheter Type: Triple Lumen Cath IV Placed: IV Placed by DR NEIL Comment IV PLACED PRIOR TO CODE, SEE CHARTING. DR NEIL PLACED TLC ON SECOND ATTEMPT SEE NOTE Medications & Response Medications and Responses #1: Medication Time: 15:56 ADULT Medications Given ADULT: Epinephrine 1 mg, Sodium Bacarbinate 50 meq Route of Administration: IV Medications and Responses #2: Medication Time: 15:59 ADULT Medications Given ADULT: Epinephrine 1 mg Route of Administration: IV Medications and Responses #3: Medication Time: 16:03 ADULT Medications Given ADULT: Epinephrine 1 mg Route of Administration: IV Medications and Responses #4: Medication Time: 16:06 ADULT Medications Given ADULT: Epinephrine 1 mg, Sodium Bacarbinate 50 meq, Calcium Chloride 10 mL Route of Administration: IV Medications and Responses #5: Medication Time: 16:09 ADULT Medications Given ADULT: D50 (amp) (BLOOD SUGAR 60) Route of Administration: IV Medications and Responses #6: Medication Time: 16:30 ADULT Medications Given ADULT: Epinephrine 1 mg, D50 (amp) Route of Administration: IV Medications and Responses #7: Medication Time: 16:32 ADULT Medications Given ADULT: Sodium Bacarbinate 50 meq Route of Administration: IV Medications and Responses #8: Medication Time: 16:35 ADULT Medications Given ADULT: Epinephrine 1 mg Route of Administration: IV Medications and Responses #9: Medication Time: 16:38 ADULT Medications Given ADULT: Epinephrine 1 mg, Calcium Chloride 10 mL Route of Administration: IV Medications and Responses #10: Medication Time: 16:46 ADULT Medications Given ADULT: Epinephrine 1 mg Route of Administration: IV Medications and Responses #11: Medication Time: 16:55 ADULT Medications Given ADULT: Epinephrine 1 mg Route of Administration: IV Medications and Responses #12: Medication Time: 16:58 ADULT Medications Given ADULT: Epinephrine 1 mg Route of Administration: IV Medications and Responses #13: Medication Time: 17:01 ADULT Medications Given ADULT: Epinephrine 1 mg, Sodium Bacarbinate 50 meq Route of Administration: IV Medications and Responses #14: Medication Time: 17:05 ADULT Medications Given ADULT: Epinephrine 1 mg Route of Administration: IV Medications and Responses #15: Medication Time: 17:08 ADULT Medications Given ADULT: Epinephrine 1 mg Route of Administration: IV Nurses Notes [place]y Coma Scale Eye Opening: None (1) [place]y Coma Scale Verbal: None (1) [place] Coma Scale Motor: None (1) Bedside Blood Glucose: 176 (AT 1634) Time Code Ended Time Code Ended: 17:09 Post Arrest Status: Outcome of code: Unsuccessful Patient pronounced by: DR NEIL Time patient pronounced: 17:09 Family notified: Yes Attending called: Yes Code Team Present: ATILIO KWAN RN, RICHARD RN, PRAKASH RN, BARB RN, GENARO RN, RICHARD RN, KENNETH RN, EUGENIA CCT, ROBERT OCCUPATIONAL THERAPY PROGRAM DIRECTOR, NATI RT, CARLOS RT, RADHA RT, DR ZIMMERMAN RESIDENT AND DR DAY RESIDENT Atilio Ghosh Apr 22, 2024 19:57
== END 2024-04-22 17:09 | DRG 441 ==
LOC: ER 15:10 → TELE 19:57 → TELE-EAST 04-17 23:49 → TELE-WESTW 04-18 22:25 → EAST 04-21 21:15 → TELE-EAST 04-21 21:16
PROVIDERS: ADMIT Nurse Practitioner Family; ATTEND Internal Medicine Cardiovascular Disease
PROC: 5A1D70Z Performance of Urinary Filtration, Intermittent, Less than 6 Hours Per Day (ICD-10-PCS; 2024-04-17)
PROC: 5A1D70Z Performance of Urinary Filtration, Intermittent, Less than 6 Hours Per Day (ICD-10-PCS; 2024-04-19)
PROC: 5A1D70Z Performance of Urinary Filtration, Intermittent, Less than 6 Hours Per Day (ICD-10-PCS; 2024-04-21)
PROC: 0BH17EZ Insertion of Endotracheal Airway into Trachea, Via Natural or Artificial Opening (ICD-10-PCS; principal; 2024-04-22)
PROC: 06HN33Z Insertion of Infusion Device into Left Femoral Vein, Percutaneous Approach (ICD-10-PCS; 2024-04-22)
PROC: B54CZZA Ultrasonography of Left Lower Extremity Veins, Guidance (ICD-10-PCS; 2024-04-22)
PROC: 0BC78ZZ Extirpation of Matter from Left Main Bronchus, Via Natural or Artificial Opening Endoscopic (ICD-10-PCS; 2024-04-22)
PROC: 5A12012 Performance of Cardiac Output, Single, Manual (ICD-10-PCS; 2024-04-22)
PROC: 5A2204Z Restoration of Cardiac Rhythm, Single (ICD-10-PCS; 2024-04-22)
PROC: 0BC38ZZ Extirpation of Matter from Right Main Bronchus, Via Natural or Artificial Opening Endoscopic (ICD-10-PCS; 2024-04-22)
DX: K72.00 Acute and subacute hepatic failure without coma (principal); E43 Unspecified severe protein-calorie malnutrition; G93.41 Metabolic encephalopathy; I50.23 Acute on chronic systolic (congestive) heart failure; N18.6 End stage renal disease; J96.01 Acute respiratory failure with hypoxia; J69.0 Pneumonitis due to inhalation of food and vomit; I13.2 Hypertensive heart and chronic kidney disease with heart failure and with stage 5 chronic kidney disease, or end stage renal disease; D61.818 Other pancytopenia; D68.9 Coagulation defect, unspecified; E87.1 Hypo-osmolality and hyponatremia; J44.1 Chronic obstructive pulmonary disease with (acute) exacerbation; K80.21 Calculus of gallbladder without cholecystitis with obstruction; R18.8 Other ascites; R57.9 Shock, unspecified; I42.9 Cardiomyopathy, unspecified; Z68.1 Body mass index [BMI] 19.9 or less, adult; D63.1 Anemia in chronic kidney disease; E87.5 Hyperkalemia; I08.1 Rheumatic disorders of both mitral and tricuspid valves; K82.8 Other specified diseases of gallbladder; K74.60 Unspecified cirrhosis of liver; I27.21 Secondary pulmonary arterial hypertension; E16.2 Hypoglycemia, unspecified; I46.9 Cardiac arrest, cause unspecified; Z99.2 Dependence on renal dialysis; Z88.8 Allergy status to other drugs, medicaments and biological substances; Z95.810 Presence of automatic (implantable) cardiac defibrillator; Z79.899 Other long term (current) drug therapy
CPT/HCPCS: 36415; 36600; 71045; 74176; 76705; 80053; 80074; 82105; 82140; 82728; 82805; 82962; 83605; 83735; 83880; 84484; 85025; 85610; 85730; 86038; 86704; 86706; 86708; 86803; 86850; 86900; 86901; 87040; 87077; 87081; 87186; 87340; 90935; 92950; 92960; 93005; G0378; J0171; J1642; J1815; J3430; J7042; P9047